=== PATIENT | female | born 1970 | race Caucasian/White ===

== ENCOUNTER 2020-07-09 06:23 | Outpatient (REF) | payer OTHER, SELFPAY ==
[2020-07-10 21:47] LABS: Lyme Abs Screen <0.90 index
== END 2020-07-09 06:24 | disposition home or self-care (01) ==
LOC: HO.HMGCLDS 06:23
PROVIDERS: PCP Internal Medicine; Visit Provider Internal Medicine
DX: M19.90 Unspecified osteoarthritis, unspecified site (principal)
CPT/HCPCS: 86618

== ENCOUNTER → 2020-07-17 10:01 | Outpatient (BNVA) | payer OTHER, SELFPAY | PROVIDERS: PCP Internal Medicine; Referring Provider Internal Medicine; Visit Provider Internal Medicine Gastroenterology | DX: Z76.89 Persons encountering health services in other specified circumstances (principal) ==

== ENCOUNTER 2020-08-14 11:40 | Outpatient (REF) | payer OTHER, SELFPAY | END 2020-08-14 11:41 | disposition home or self-care (01) | LOC: HO.LAB 11:40 | PROVIDERS: Visit Provider Internal Medicine | DX: Z20.822 Contact with and (suspected) exposure to COVID-19 (principal) | CPT/HCPCS: 36415; C9803; U0003 ==

== ENCOUNTER 2020-08-21 15:54 | Outpatient (REF) | payer OTHER, SELFPAY ==
--- NOTE | 2020-08-21 | MM_ITS ---
EXAMINATION: MM SCREENING DIGITAL BREAST TOMOSYNTHESIS, BILATERAL CLINICAL INFORMATION: Screening. Asymptomatic. The lifetime risk of breast cancer based on the Tyrer-Cuzick Model is 7.9%. COMPARISON: Mammography: May 17, 2019 and studies dating back to January 03, 2015 TECHNIQUE: Digital breast tomosynthesis is performed in both the craniocaudal and mediolateral oblique views along with computer-aided detection (CAD). Synthesized 2D images are generated from the tomosynthesis. FINDINGS: There are scattered areas of fibroglandular density (ACR BI-RADS breast composition Category b). There are no significant masses, abnormal calcifications, or other abnormalities. MM/MM tomosynthesis screening BI IMPRESSION: There are no significant changes from prior study. ASSESSMENT: BI-RADS 1: Negative RECOMMENDATION: Routine annual mammography screening. This patient's information was entered into a reminder system with a target due date for their next mammogram.
== END 2020-08-21 15:55 | disposition home or self-care (01) ==
LOC: HO.MAMMO 15:54
PROVIDERS: PCP Internal Medicine; Visit Provider Internal Medicine
DX: Z12.31 Encounter for screening mammogram for malignant neoplasm of breast (principal)
CPT/HCPCS: 77063; 77067

== ENCOUNTER → 2020-08-28 08:49 | Outpatient (BNVA) | payer OTHER, SELFPAY | PROVIDERS: PCP Internal Medicine; Visit Provider Internal Medicine Gastroenterology ==

== ENCOUNTER 2020-09-10 07:11 | Outpatient (REF) | payer OTHER, SELFPAY ==
[2020-09-10 07:40] LABS: MANUAL DIFF FLAG NO
[2020-09-10 07:46] LABS: Basophils Percent Auto 0.5 % (0-2); Eosinophils Absolute Auto 0.1 X10*3/uL (0.0-0.4); Eosinophils Percent Auto 2.4 % (0-4); Hematocrit 43.2 % (37-47); Hemoglobin 13.8 g/dl (12.0-16.0); Imm Gran Abs Auto 0.01 X10*3/uL (0.00-0.03); Imm Gran Pct Auto 0.2 % (0.0-0.4); Lymphocytes Percent Auto 33.2 % (20-40); Mean Corpuscular HGB Conc 31.9 g/dl (31.0-35.0); Mean Corpuscular Hemoglobin 28.2 pg (27.0-33.0); Mean Corpuscular Volume 88.2 fL (80-98); Mean Platelet Volume 11.1 fL (9.4-12.3); Monocytes Absolute Auto 0.4 X10*3/uL (0.1-1.2); Monocytes Percent Auto 7.4 % (2-11); Neutrophils Absolute Auto 3.4 X10*3/uL (2.0-8.3); Neutrophils Percent Auto 56.3 % (45-73); Platelet Count 254 X10*3/uL (160-400); Red Cell Distribution Width 13.1 % (11.0-16.0); White Blood Count 5.9 X10*3/uL (4.8-10.8)
[2020-09-10 07:53] LABS: Glucose Urine UA 100 MG/DL (NEG); Leukocyte Esterase Urine 2+ (NEG); Nitrite Urine NEG (NEG); PH 5.5 (5.0-8.0); Specific Gravity - Urine 1.025 (1.005-1.025); Urine Blood TRACE (NEG); Urine Ketones NEG (NEG); Urine Protein NEG (NEG-TRACE)
[2020-09-10 08:17] LABS: Appearance Urine CLEAR; Color Urine YELLOW
[2020-09-10 08:28] LABS: Bacteria Urine 1+ /LPF; Mucus Urine 2+ /LPF; RBC Urine 0-2 /HPF (0); Squamous Epithelial Cell Urine 3+ /LPF; WBC Clumps Urine NOTED; WBC Urine 30-49 /HPF (0-4)
[2020-09-10 08:38] LABS: Alanine Aminotransferase 21 U/L (0-31); Albumin Level 4.2 g/dL (3.5-5.0); Alkaline Phosphatase 70 U/L (39-117); Anion Gap 12 (12-20); Aspartate Amino Transferase 17 U/L (5-31); Bilirubin Total 0.4 mg/dL (0.0-1.0); Blood Urea Nitrogen 17 mg/dL (9-16); Calcium 9.6 mg/dL (8.4-10.2); Carbon Dioxide 27 mmol/L (22-29); Chloride 112 mmol/L (96-108); Cholesterol 181 mg/dL; Estimated Glomerular Filt Rate > 60; Glucose Fasting 97 mg/dL (60-99); HDL Cholesterol 45 mg/dL; LDL Cholesterol Calculated 119 mg/dl; Sodium 146 mmol/L (135-145); Total Protein 6.9 g/dL (6.5-8.0); Triglycerides 89 mg/dL
== END 2020-09-10 07:12 | disposition home or self-care (01) ==
LOC: HO.LAB 07:11
PROVIDERS: PCP Internal Medicine; Visit Provider Internal Medicine
DX: Z00.00 Encounter for general adult medical examination without abnormal findings (principal); E78.00 Pure hypercholesterolemia, unspecified; R79.89 Other specified abnormal findings of blood chemistry
CPT/HCPCS: 36415; 80053; 80061; 81001; 81003; 85025

== ENCOUNTER 2020-10-20 10:50 | Outpatient (REF) | payer OTHER, SELFPAY ==
[2020-10-20 12:52] LABS: Alanine Aminotransferase 25 U/L (0-31); Albumin Level 4.2 g/dL (3.5-5.0); Alkaline Phosphatase 73 U/L (39-117); Anion Gap 13 (12-20); Aspartate Amino Transferase 22 U/L (5-31); Bilirubin Total 0.6 mg/dL (0.0-1.0); Blood Urea Nitrogen 23 mg/dL (9-16); Calcium 9.1 mg/dL (8.4-10.2); Carbon Dioxide 27 mmol/L (22-29); Chloride 108 mmol/L (96-108); Estimated Glomerular Filt Rate > 60; Glucose Random 85 mg/dL (60-115); Potassium 4.3 mmol/L (3.3-5.1); Sodium 144 mmol/L (135-145); Total Protein 6.8 g/dL (6.5-8.0)
[2020-10-22 14:37] LABS: IgA 305 mg/dL (47-310); IgG 1068 mg/dL (600-1640); IgM 47 mg/dL (50-300)
[2020-11-01 08:36] LABS: Prostaglandin D2 Random Urine 52 ng/liter
== END 2020-10-20 10:51 | disposition home or self-care (01) ==
LOC: HO.LAB 10:50
PROVIDERS: PCP Internal Medicine; Visit Provider Allergy & Immunology
DX: R10.84 Generalized abdominal pain (principal); R14.0 Abdominal distension (gaseous); L50.0 Allergic urticaria; J30.9 Allergic rhinitis, unspecified
CPT/HCPCS: 36415; 80053; 82784; 83520; 84150; 86334

== ENCOUNTER 2020-10-22 06:44 | Outpatient (REF) | payer OTHER, SELFPAY ==
[2020-10-31 17:02] LABS: Creatinine 24Hr Urine 1365 mg/24 h; N-Methylhistamine, 24Hr Urine 104 mcg/g Cr (30-200); Total Volume 975 mL
== END 2020-10-22 06:45 | disposition home or self-care (01) ==
LOC: HO.LNP 06:44
PROVIDERS: Visit Provider Allergy & Immunology
DX: R14.0 Abdominal distension (gaseous) (principal); R10.84 Generalized abdominal pain; L50.0 Allergic urticaria; J30.9 Allergic rhinitis, unspecified
CPT/HCPCS: 81050; 82542

== ENCOUNTER 2020-11-22 10:55 | Outpatient (REF) | payer SELFPAY ==
[2020-11-22 12:18] LABS: Blood Urea Nitrogen 20 mg/dL (9-16); Estimated Glomerular Filt Rate > 60
== END 2020-11-22 10:56 | disposition home or self-care (01) ==
LOC: HO.LNP 10:55
PROVIDERS: Visit Provider Internal Medicine
DX: R79.9 Abnormal finding of blood chemistry, unspecified (principal)
CPT/HCPCS: 82565; 84520

== ENCOUNTER → 2021-01-01 12:52 | Outpatient (BNVA) | payer OTHER, SELFPAY | PROVIDERS: PCP Internal Medicine; Visit Provider Internal Medicine Gastroenterology ==

== ENCOUNTER 2021-04-25 14:26 | Outpatient (REF) | payer OTHER, SELFPAY ==
[2021-04-25 15:14] LABS: Alanine Aminotransferase 22 U/L (0-31); Albumin Level 4.1 g/dL (3.5-5.0); Alkaline Phosphatase 70 U/L (39-117); Aspartate Amino Transferase 18 U/L (5-31); Bilirubin Direct < 0.2 mg/dL (0.0-0.5); Bilirubin Total 0.3 mg/dL (0.0-1.0); Cholesterol 217 mg/dL; HDL Cholesterol 51 mg/dL; LDL Cholesterol Calculated 140 mg/dl; Total Protein 6.8 g/dL (6.5-8.0); Triglycerides 134 mg/dL
[2021-04-25 15:49] LABS: Reflex LDLD? No
== END 2021-04-25 14:27 | disposition home or self-care (01) ==
LOC: HO.LNP 14:26
PROVIDERS: Visit Provider Internal Medicine
DX: E78.00 Pure hypercholesterolemia, unspecified (principal); E78.9 Disorder of lipoprotein metabolism, unspecified
CPT/HCPCS: 80061; 80076

== ENCOUNTER → 2021-07-23 09:33 | Outpatient (BNVA) | payer OTHER, SELFPAY | PROVIDERS: PCP Internal Medicine; Visit Provider Internal Medicine Gastroenterology ==

== ENCOUNTER 2021-07-30 10:31 | Outpatient (REF) | payer OTHER, SELFPAY ==
[2021-07-30 11:32] LABS: Alanine Aminotransferase 24 U/L (0-31); Albumin Level 4.2 g/dL (3.5-5.0); Alkaline Phosphatase 85 U/L (39-117); Aspartate Amino Transferase 20 U/L (5-31); Bilirubin Direct 0.2 mg/dL (0.0-0.5); Bilirubin Total 0.6 mg/dL (0.0-1.0); Cholesterol 223 mg/dL; HDL Cholesterol 51 mg/dL; LDL Cholesterol Calculated 136 mg/dl; Total Protein 7.2 g/dL (6.5-8.0); Triglycerides 184 mg/dL
[2021-07-30 12:19] LABS: Reflex LDLD? No
== END 2021-07-30 10:32 | disposition home or self-care (01) ==
LOC: HO.LNP 10:31
PROVIDERS: Visit Provider Internal Medicine
DX: E78.00 Pure hypercholesterolemia, unspecified (principal)
CPT/HCPCS: 80061; 80076

== ENCOUNTER 2021-09-19 07:15 | Outpatient (REF) | payer OTHER, SELFPAY ==
[2021-09-19 11:19] LABS: MANUAL DIFF FLAG NO
[2021-09-19 11:27] LABS: Basophils Percent Auto 0.6 % (0-2); Eosinophils Absolute Auto 0.1 X10*3/uL (0.0-0.4); Eosinophils Percent Auto 2.3 % (0-4); Hematocrit 44.9 % (37.0-47.0); Hemoglobin 14.4 g/dl (12.0-16.0); Imm Gran Abs Auto 0.04 X10*3/uL (0.00-0.03); Imm Gran Pct Auto 0.6 % (0.0-0.4); Lymphocytes Absolute Auto 2.3 X10*3/uL (1.2-4.9); Lymphocytes Percent Auto 37.7 % (20-40); Mean Corpuscular HGB Conc 32.1 g/dl (31.0-35.0); Mean Corpuscular Hemoglobin 28.3 pg (27.0-33.0); Mean Corpuscular Volume 88.4 fL (80.0-98.0); Mean Platelet Volume 12.3 fL (9.4-12.3); Monocytes Absolute Auto 0.5 X10*3/uL (0.1-1.2); Monocytes Percent Auto 7.3 % (2-11); Neutrophils Absolute Auto 3.2 x10*3/uL (2.0-8.3); Neutrophils Percent Auto 51.5 % (45-73); Platelet Count 244 X10*3/uL (160-400); Red Blood Count 5.08 X10*6/uL (4.20-5.50); Red Cell Distribution Width 13.3 % (11.0-16.0); White Blood Count 6.2 X10*3/uL (4.8-10.8)
[2021-09-19 11:37] LABS: Alanine Aminotransferase 25 U/L (0-31); Albumin Level 4.2 g/dL (3.5-5.0); Alkaline Phosphatase 74 U/L (39-117); Anion Gap 13 (12-20); Aspartate Amino Transferase 21 U/L (5-31); Bilirubin Total 0.4 mg/dL (0.0-1.0); Blood Urea Nitrogen 14 mg/dL (9-16); Calcium 9.8 mg/dL (8.4-10.2); Carbon Dioxide 27 mmol/L (22-29); Chloride 108 mmol/L (96-108); Cholesterol 201 mg/dL; Estimated Glomerular Filt Rate > 60; Glucose Random 94 mg/dL (60-115); HDL Cholesterol 56 mg/dL; LDL Cholesterol Calculated 121 mg/dl; Potassium 4.5 mmol/L (3.3-5.1); Sodium 143 mmol/L (135-145); Total Protein 7.2 g/dL (6.5-8.0); Triglycerides 121 mg/dL
[2021-09-19 11:50] LABS: Appearance Urine CLEAR; Color Urine YELLOW; Glucose Urine UA NEG (NEG); Leukocyte Esterase Urine TRACE (NEG); Nitrite Urine NEG (NEG); Urine Blood NEG (NEG); Urine Ketones NEG (NEG); Urine Protein NEG (NEG-TRACE)
[2021-09-19 12:05] LABS: Amorphous Sediment Urine TRACE /LPF; Bacteria Urine TRACE /LPF; RBC Urine 0 /HPF (0); Squamous Epithelial Cell Urine TRACE /LPF
== END 2021-09-19 07:16 | disposition home or self-care (01) ==
LOC: HO.LNP 07:15
PROVIDERS: Visit Provider Internal Medicine
DX: Z00.00 Encounter for general adult medical examination without abnormal findings (principal); E78.00 Pure hypercholesterolemia, unspecified
CPT/HCPCS: 80053; 80061; 81001; 85025

== ENCOUNTER 2021-09-30 16:22 | Outpatient (REF) | payer OTHER, SELFPAY ==
--- NOTE | ~2021-09-30 | MM_ITS ---
EXAMINATION: MM SCREENING DIGITAL BREAST TOMOSYNTHESIS, BILATERAL CLINICAL INFORMATION: Screening. Asymptomatic. The lifetime risk of breast cancer based on the Tyrer-Cuzick Model is 7%. COMPARISON: Mammography: 08/21/2020, 05/17/2019, 05/12/2018; targeted left breast ultrasound 05/12/2018 TECHNIQUE: Digital breast tomosynthesis is performed in both the craniocaudal and mediolateral oblique views along with computer-aided detection (CAD). Synthesized 2D images are generated from the tomosynthesis. FINDINGS: There are scattered areas of fibroglandular density (ACR BI-RADS breast composition Category b). Scattered bilateral asymmetries are stable. There is stable focal nodular asymmetry central mid 12:00 left breast, consistent with cysts on prior ultrasound and stable focal asymmetry mid upper outer right breast. There is no developing density or interval significant mass or architectural abnormality. No abnormal calcifications. The axilla and skin contours are unremarkable. MM/MM tomosynthesis screening BI IMPRESSION: No significant changes from prior exams. ASSESSMENT: BI-RADS 2: Benign RECOMMENDATION: Routine annual mammography screening. This patient's information was entered into a reminder system with a target due date for their next mammogram.
== END 2021-09-30 16:23 | disposition home or self-care (01) ==
LOC: HO.MAMMO 16:22
PROVIDERS: PCP Internal Medicine; Visit Provider Internal Medicine
DX: Z12.31 Encounter for screening mammogram for malignant neoplasm of breast (principal)
CPT/HCPCS: 77063; 77067

== ENCOUNTER → 2021-12-10 15:31 | Outpatient (BNVA) | payer OTHER, SELFPAY | PROVIDERS: PCP Internal Medicine; Visit Provider Hospitalist | DX: J45.40 Moderate persistent asthma, uncomplicated (principal) ==

== ENCOUNTER 2022-01-10 15:40 | Outpatient (REF) | payer OTHER, SELFPAY ==
--- NOTE | 2022-01-10 17:37 | PFT_ITS ---
INDICATION: Dyspnea. SPIROMETRY: FEV1 to FVC of 88% with an FEV1 of 3.24 L, which is 120% predicted. FVC of 3.7 L, which is 108% predicted. No significant response to bronchodilators noted. Maximum voluntary ventilation 111% predicted. LUNG VOLUMES: Total lung capacity 108% predicted with an expiratory reserve volume of 48% predicted. DIFFUSION CAPACITY: DLCO 95% predicted. COMPARISONS: None. INTERPRETATION: No obstructive nor restrictive ventilatory defects identified. No significant response to bronchodilators noted. Normal maximum voluntary ventilation. Lung volumes are normal except for decrease in the expiratory reserve volume secondary to an elevated BMI. Diffusion capacity is within normal limits. Clinical correlation warranted. Adrian Martínez MD MR/MODL / [id number]
== END 2022-01-10 15:41 | disposition home or self-care (01) ==
LOC: HO.RESP 15:40
PROVIDERS: PCP Internal Medicine; Visit Provider Hospitalist
DX: J45.909 Unspecified asthma, uncomplicated (principal)
CPT/HCPCS: 94060; 94727; 94729

== ENCOUNTER 2022-01-24 14:04 | Outpatient (REF) | payer OTHER, SELFPAY ==
--- NOTE | ~2022-01-24 | CT_ITS ---
EXAMINATION: CT CHEST SCREENING CLINICAL INFORMATION: Former smoker. Quit 3 years ago. COMPARISON: Previous chest CT most recent October 2018 TECHNIQUE: Multidetector volumetric CT imaging of the chest is performed without contrast using low dose technique. Additional 2D coronal and sagittal reformatted images and axial 3D maximum intensity projection (MIP) images are generated on the CT workstation. This CT examination was performed using dose optimization techniques as appropriate, variously including the following: *Automated exposure control *Adjustment of mA and/or kV according to patient size (this includes techniques or standardized protocols for targeted exams where dose is matched to indication/reason for exam; i.e. extremities or head) *Use of iterative reconstruction technique DLP: 60 mGy-cm FINDINGS: LUNGS: There is atelectasis at the lung bases. No pulmonary nodule. No endobronchial or endotracheal lesion. MEDIASTINUM: Prominent soft tissue in the anterior superior mediastinum suggestive of thymic hyperplasia. This is similar to October 2018 CT scan. Small mediastinal lymph nodes. No enlarged lymph nodes. Normal heart size. Coronary artery calcification. PLEURA: There is no pleural effusion. No pleural mass or thickening. Small left posterior medial diaphragmatic hernia containing fat. AXILLA: No lymphadenopathy. UPPER ABDOMEN: Partially visualized cyst in the upper pole of the right kidney. OSSEOUS STRUCTURES: Degenerative changes of the spine. CT/CT lung screening IMPRESSION: No pulmonary nodules. 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 ASSESSMENT: Lung-RADS category 1: Negative RECOMMENDATION: Annual low-dose chest CT follow-up recommended.
== END 2022-01-24 14:05 | disposition home or self-care (01) ==
LOC: HO.CT 14:04
PROVIDERS: Visit Provider Physician Assistant Medical
DX: Z12.2 Encounter for screening for malignant neoplasm of respiratory organs (principal); Z87.891 Personal history of nicotine dependence
CPT/HCPCS: 71271; G0296

== ENCOUNTER 2022-03-27 10:48 | Outpatient (REF) | payer OTHER, SELFPAY ==
[2022-03-27 11:10] LABS: Alanine Aminotransferase 23 U/L (0-31); Albumin Level 4.2 g/dL (3.5-5.0); Alkaline Phosphatase 64 U/L (39-117); Aspartate Amino Transferase 23 U/L (5-31); Bilirubin Direct 0.2 mg/dL (0.0-0.5); Bilirubin Total 0.5 mg/dL (0.0-1.0); Cholesterol 193 mg/dL; HDL Cholesterol 61 mg/dL; LDL Cholesterol Calculated 111 mg/dl; Triglycerides 105 mg/dL
== END 2022-03-27 10:49 | disposition home or self-care (01) ==
LOC: HO.LNP 10:48
PROVIDERS: Visit Provider Internal Medicine
DX: E78.00 Pure hypercholesterolemia, unspecified (principal)
CPT/HCPCS: 80061; 80076

== ENCOUNTER → 2022-08-08 14:21 | Outpatient (BNVA) | payer OTHER, SELFPAY | PROVIDERS: PCP Internal Medicine; Visit Provider Hospitalist | DX: F17.200 Nicotine dependence, unspecified, uncomplicated (principal); J45.40 Moderate persistent asthma, uncomplicated; J44.9 Chronic obstructive pulmonary disease, unspecified; J45.909 Unspecified asthma, uncomplicated ==

== ENCOUNTER 2022-09-25 10:55 | Outpatient (REF) | payer OTHER, SELFPAY ==
[2022-09-25 11:00] LABS: MANUAL DIFF FLAG NO
[2022-09-25 12:36] LABS: Appearance Urine Clear; Basophils Percent Auto 0.6 % (0-2); Color Urine Yellow; Eosinophils Absolute Auto 0.2 X10*3/uL (0.0-0.4); Eosinophils Percent Auto 2.3 % (0-4); Glucose Urine UA Negative (Negative); Hematocrit 44.1 % (37.0-47.0); Hemoglobin 14.1 g/dl (12.0-16.0); Imm Gran Abs Auto 0.01 X10*3/uL (0.00-0.03); Imm Gran Pct Auto 0.2 % (0.0-0.4); Leukocyte Esterase Urine Trace (Negative); Lymphocytes Absolute Auto 2.5 X10*3/uL (1.2-4.9); Lymphocytes Percent Auto 37.3 % (20-40); Mean Corpuscular Hemoglobin 27.8 pg (27.0-33.0); Mean Corpuscular Volume 86.8 fL (80.0-98.0); Mean Platelet Volume 12.6 fL (9.4-12.3); Monocytes Absolute Auto 0.6 X10*3/uL (0.1-1.2); Monocytes Percent Auto 8.3 % (2-11); Neutrophils Absolute Auto 3.4 x10*3/uL (2.0-8.3); Neutrophils Percent Auto 51.3 % (45-73); Nitrite Urine Negative (Negative); Platelet Count 250 X10*3/uL (160-400); Red Blood Count 5.08 X10*6/uL (4.20-5.50); Red Cell Distribution Width 13.6 % (11.0-16.0); Specific Gravity - Urine 1.015 (1.005-1.025); UMIC TRIGGER UACC YES; Urine Blood Negative (Negative); Urine Ketones Negative (Negative); Urine Protein Negative (Neg-Trace); White Blood Count 6.6 X10*3/uL (4.8-10.8)
[2022-09-25 12:45] LABS: Bacteria Urine None Seen (None Seen); Hyaline Casts Urine 0-2 /LPF (0-2); RBC Urine 0-2 /HPF (0-2); Squamous Epithelial Cell Urine 0-2 /HPF (0-2); WBC Urine 0-5 /HPF (0-5)
[2022-09-25 12:56] LABS: Alanine Aminotransferase 23 U/L (0-31); Albumin Level 4.2 g/dL (3.5-5.0); Alkaline Phosphatase 72 U/L (39-117); Anion Gap 14 (12-20); Aspartate Amino Transferase 19 U/L (5-31); Bilirubin Direct 0.2 mg/dL (0.0-0.5); Bilirubin Total 0.5 mg/dL (0.0-1.0); Blood Urea Nitrogen 15 mg/dL (9-16); Calcium 9.4 mg/dL (8.4-10.2); Carbon Dioxide 25 mmol/L (22-29); Chloride 111 mmol/L (96-108); Cholesterol 186 mg/dL; Estimated Glomerular Filt Rate > 60; Glucose Fasting 105 mg/dL (60-99); HDL Cholesterol 58 mg/dL; LDL Cholesterol Calculated 115 mg/dl; Potassium 4.4 mmol/L (3.3-5.1); Sodium 146 mmol/L (135-145); Total Protein 6.9 g/dL (6.5-8.0); Triglycerides 68 mg/dL
[2022-09-25 13:55] LABS: Reflex LDLD? No
== END 2022-09-25 10:56 | disposition home or self-care (01) ==
LOC: HO.LNP 10:55
PROVIDERS: Visit Provider Internal Medicine
DX: Z00.00 Encounter for general adult medical examination without abnormal findings (principal); E78.00 Pure hypercholesterolemia, unspecified; K58.0 Irritable bowel syndrome with diarrhea
CPT/HCPCS: 80053; 80061; 80076; 81001; 82248; 85025

== ENCOUNTER 2022-10-03 15:29 | Outpatient (REF) | payer OTHER, SELFPAY ==
--- NOTE | ~2022-10-03 | MM_ITS ---
EXAMINATION: MM SCREENING DIGITAL BREAST TOMOSYNTHESIS, BILATERAL CLINICAL INFORMATION: Screening. Asymptomatic. The lifetime risk of breast cancer based on the Tyrer-Cuzick Model is 5%. COMPARISON: Mammography: 09/30/2021, 08/21/2020, 05/17/2019 TECHNIQUE: Digital breast tomosynthesis is performed in both the craniocaudal and mediolateral oblique views along with computer-aided detection (CAD). Synthesized 2D images are generated from the tomosynthesis. FINDINGS: There are scattered areas of fibroglandular density (ACR BI-RADS breast composition Category b). There are no significant masses, abnormal calcifications, or other abnormalities. No architectural abnormality or developing density or significant change from prior studies. Again, there is a stable macrolobulated nodule mid 12:00 left breast and stable round retroareolar nodule left breast. The axilla are unremarkable. MM/MM tomosynthesis screening BI IMPRESSION: No mammographic evidence of malignancy. ASSESSMENT: BI-RADS 2: Benign RECOMMENDATION: Routine annual mammography screening. This patient's information was entered into a reminder system with a target due date for their next mammogram.
== END 2022-10-03 15:30 | disposition home or self-care (01) ==
LOC: HO.MAMMO 15:29
PROVIDERS: PCP Internal Medicine; Visit Provider Internal Medicine
DX: Z12.31 Encounter for screening mammogram for malignant neoplasm of breast (principal)
CPT/HCPCS: 77063; 77067

== ENCOUNTER 2023-03-23 11:21 | Outpatient (REF) | payer OTHER, SELFPAY ==
[2023-03-23 11:39] LABS: Alanine Aminotransferase 21 U/L (0-31); Albumin Level 4.3 g/dL (3.5-5.0); Alkaline Phosphatase 74 U/L (39-117); Aspartate Amino Transferase 22 U/L (5-31); Bilirubin Direct 0.2 mg/dL (0.0-0.5); Bilirubin Total 0.4 mg/dL (0.0-1.0); Cholesterol 194 mg/dL (<200); HDL Cholesterol 54 mg/dL (>40); LDL Cholesterol Calculated 111 mg/dL (<100); Total Protein 7.6 g/dL (6.5-8.0); Triglycerides 145 mg/dL (<150)
== END 2023-03-23 11:22 | disposition home or self-care (01) ==
LOC: HO.LNP 11:21
PROVIDERS: Visit Provider Internal Medicine
DX: E78.00 Pure hypercholesterolemia, unspecified (principal)
CPT/HCPCS: 80061; 80076

== ENCOUNTER 2023-03-27 14:57 | Outpatient (REF) | payer OTHER, SELFPAY ==
--- NOTE | ~2023-03-27 | CT_ITS ---
EXAMINATION: CT CHEST SCREENING CLINICAL INFORMATION: 30 pack year smoking history; former smoker. COMPARISON: Prior chest CT examinations, most recently 01/24/2022. TECHNIQUE: Multidetector volumetric CT imaging of the chest is performed without contrast using low dose technique. Additional 2D coronal and sagittal reformatted images and axial 3D maximum intensity projection (MIP) images are generated on the CT workstation. This CT examination was performed using dose optimization techniques as appropriate, variously including the following: *Automated exposure control *Adjustment of mA and/or kV according to patient size (this includes techniques or standardized protocols for targeted exams where dose is matched to indication/reason for exam; i.e. extremities or head) *Use of iterative reconstruction technique DLP: 113 mGy-cm FINDINGS: LUNGS: Within the right upper lobe laterally (4:95 and 8:29), a tiny benign, calcified granuloma is redemonstrated. This is unchanged from 10/26/2018 (6:73). No new nodule, mass, infiltrate or groundglass opacity is seen. There are bibasilar foci of minor scar/subsegmental atelectasis, without associated focal airway obstruction. There is mild focal atelectasis at the medial right base, adjacent to prominent vertebral osteophytes. No small airway thickening is seen. The central airways appear patent. MEDIASTINUM: The thyroid is normal. There is mild residual thymus. No mediastinal lymphadenopathy is seen. There is no thoracic aortic aneurysm. CORONARY ARTERY CALCIFICATION: None visualized on this study. PLEURA: There is no pleural effusion. No pleural mass or thickening. AXILLA: No lymphadenopathy. UPPER ABDOMEN: Unremarkable OSSEOUS STRUCTURES: There is multi-level thoracic degenerative disc disease and spondylosis. No acute or aggressive osseous abnormality is seen. CT/CT lung screening IMPRESSION: No noncalcified lung nodule is seen. ASSESSMENT: Lung-RADS category 1: Negative RECOMMENDATION: Routine annual low-dose CT screening in 12 months.
== END 2023-03-27 14:58 | disposition home or self-care (01) ==
LOC: HO.CT 14:57
PROVIDERS: PCP Internal Medicine; Visit Provider Physician Assistant Medical
DX: Z12.2 Encounter for screening for malignant neoplasm of respiratory organs (principal); Z87.891 Personal history of nicotine dependence
CPT/HCPCS: 71271

== ENCOUNTER 2023-08-21 15:28 | Outpatient (AMB) | payer OTHER, SELFPAY ==
[2023-08-21 15:39] VITALS: PULSE 89; O2SAT 97; BMI 35.4
--- NOTE | 2023-08-21 15:39 | A.OFFVIS_ITS ---
Intake Vital Signs 08/21/23 15:39 Height 5 ft 3 in Weight 200 lb BMI 35.4 Pulse 89 Pulse Source Pulse Oximeter Pulse Oximetry (%) 97 Oxygen Delivery Method Room Air Intake Visit Reasons: emphysema Material Planning Analyst Required: No Allergies amoxicillin [AMOXICILLIN] Allergy (Severe, Verified 08/21/23 15:40) ANAPHYLAXIS Latex, Natural Rubber [LATEX, NATURAL RUBBER] Allergy (Unknown, Verified 08/21/23 15:40) rash Penicillins [PENICILLINS] Allergy (Unknown, Verified 08/21/23 15:40) TOLD TO AVOID SEASONAL ALLERGIES Allergy (Intermediate, Uncoded 08/21/23 15:40) ITCHY EYES HPI HPI Comments History of Present Illness Details The patient is a 53-year-old woman with a history of tobacco d ependency. Apparently she did have allergy symptoms when she was growing up. Significant allergy history an asthma history in the family. She never required prednisone or hospitalizations for her allergy symptoms. She did not use any inhalers. Subsequently after that she started smoking. She noticed that other people in her family were her being diagnosed with COPD. She mention that the diagnosis of COPD came later in her life. There were also smokers. The patient has been smoking until about 3 years ago when she had a case of anaphylaxis after her taking amoxicillin. During that visit she was brought to [facility] ED. She responded to epinephrine. The patient also underwent a CT scan of the chest that was personally reviewed by me. It appears that she did have some areas suggestive of emphysema primarily in the mid lung zone area. No significant pulmonary nodules noted. It was also noted the patient has a congenital under developed right kidney. The patient smoked for more 30 years about a pack a day. She is currently 51 years old and I did recommend she start the lung cancer screening program at this time. She is using Advair and then switched over to Wixela. She has been using that for many years. She still having some issues with dyspnea on exertion and feels that she has some chest tightness. She is wondering if she can try any other medication. At this point we can optimize her therapy to start Trelegy and also undergo pulmonary function studies to assess her lung capacity. as far as her allergies he has significant allergies. She was tested by Allergy immunology many years ago and they demonstrated significant allergies although she does not have the current documentation did did recommend she start allergy shots but at that time her insurance was very limited and she did not have the time to invest. 01/27/2022 the patient is here for a pulmonary follow-up visit. Overall the patient has been due well. She has been using the Trelegy. Sometimes she feels she did better on the Advair. I did encourage her to continue the medicine at this time. We did review her pulmonary function studies which were reassuring. Her lung mechanics appears to be within normal limits. In addition to that she did participated in the lung cancer screening program and she did undergo a CT scan of the chest. Has not been formally read yet but I did review with her and appears that she does have multiple pulmonary nodules are subcentimeter in size. She will need to have a repeat CT scan in a year's time. If the final report i s different will go ahead and let her know. At this point I do believe the patient will do better on singular just to help her with her allergic component of her obstructive airway disease. Again is reassuring that she does not have any evidence of COPD. 08/08/2022 patient is here for a pulmonary follow-up visit. Overall the patient is doing better. She does continue on the Trelegy 200 mcg. Will be reasonable to decrease it down to 100. at this point she just received a new prescription. therefore, she will call when she is running out in order to sent the lower dose. She has not had to use her rescue inhaler. She also did not have to start the singular. Usually her allergies are worse during the spring time. Therefore she will consider rate starting at 10. we did review her lung cancer screening CT scan. The CT scan is reassuring. 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 She is scheduled to have a repeat CT scan next summer. Will follow-up in a year's time. 08/21/2023 the patient is here for a pulmonary follow-up visit. She does complaint of worsening congested cough. Productive in nature. Difficult to expectorate. The patient has tried her respiratory medications her rescue inhaler with only partial improvement of the symptoms. Also feels she has a component of sinusitis. Denies any fevers or chills. She has tested negative fo r COVID. We also looked at her last CT scan which was back in March 2023 demonstrating a rads 1 which is very good. The patient is scheduled to have a repeat CT scan in the summer of 2023. will go ahead and continue her respiratory therapy. She is having increasing allergy symptoms. Will try Astelin nasal spray. Also, she does have a history of nasal polyposis. Will go ahead and check her allergy levels to see if she has a candidate for biologic therapy. [facility] Medical History (Updated 08/23/23 @ 19:48 by Adrian Martínez MD) Nasal polyposis Thymus hyperplasia IBS (irritable bowel syndrome) Personal history of nicotine dependence Allergies Asthma Hypercholesterolemia Surgical History (Updated 01/16/22 @ 13:00 by Skye Bañuelos PA-C) History of hysterectomy (~2005) History of endoscopy History of colonoscopy Family History Father History of colon cancer Mother No problems noted. 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/[employer] Review of Systems Const Denies body aches and Denies fever(s) Eyes Denies change in vision ENT Denies change in voice, Reports nasal congestion, Reports nasal discharge, Reports nasal obstruction, Reports post nasal drip and Reports sinus pressure Card Denies chest pain and Denies dyspnea on exertion Resp Reports chest congestion, Reports cough, Denies dyspnea on exertion and Reports wheezing GI Reports no additional complaints Musc Reports no additional complaints Neuro Reports no additional complaints Aller/Immun Reports wheezing Physical Exam Vital Signs: Last Vital Signs Pulse 89 08/21/23 15:39 Pulse Ox 97 08/21/23 15:39 Oxygen Delivery Method Room Air 08/21/23 15:39 BMI result Body Mass Index 35.4 Const General: alert HEENT General nose exam: Abnormal mucous membranes and turbinates present boggy and Nasal polyp present on the left Neck Neck: Yes normal visual inspection, Yes full ROM and Yes no lymphadenopathy Chest Chest palpation & inspection: normal inspection of the chest Resp Auscultation: no rales, no rhonchi, no wheezes and diminished lung sounds Cardio Rate: regular rate Rhythm: regular rhythm Heart sounds: S1 normal heart sound present and S2 normal heart sound present GI Palpation (GI): Soft to palpation and nontender Auscultation: normal bowel sounds Skin General skin exam: rashes and/or lesions noted Assessment & Plan Assessment & Plan (1) Asthma: Code(s): J45.909 - Unspecified asthma, uncomplicated Qualifiers: Asthma complication type: uncomplicated Asthma persistence: persistent Asthma severity: moderate Qualified Code(s): J45.40 - Moderate persistent asthma, uncomplicated (2) Allergies: Code(s): T78.40XA - Allergy, unspecified, initial encounter Qualifiers: Encounter type: subsequent encounter Qualified Code(s): T78.40XD - Allergy, unspecified, subsequent encounter (3) 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 Singulair qHS during the spring if her allergies worsen follow-up in 12 months Orders: Orders Complete Blood Count Auto Diff 08/21/23 J45.909 - Unspecified asthma, uncomplicated, T78.40XA - Allergy, unspecified, initial encounter Immunoglobulin E 08/21/23 J45.909 - Unspecified asthma, uncomplicated, T78.40XA - Allergy, unspecified, initial encounter Erythrocyte Sedimentation Rate 08/21/23 J45.909 - Unspecified asthma, uncomplicated, T78.40XA - Allergy, unspecified, initial encounter Medications: New azelastine administer into each nostril 2 sprays intranasal BID 30 days 30 mL 6RF doxycycline monohydrate 100 mg PO BID 14 days 28 tabs 0RF prednisone PO daily; Take 2 tabs daily x 7 days, then 1 tab daily x 7 days 14 days 21 tabs 0RF Coding Level of Care Code Est Pt Level 4 (79768) Diagnoses Moderate persistent asthma without complication J45.40 Asthma complication type: uncomplicated Asthma persistence: persistent Asthma severity: moderate Allergy, subsequent encounter T78.40XD Encounter type: subsequent encounter Thymus hyperplasia E32.0 Nasal polyposis J33.9 Subacute sinusitis, unspecified location J01.90 Sinusitis location: unspecified location Chronicity: subacute Time Spent (min) 17
== END 2023-08-21 15:57 | disposition home or self-care (01) ==
PROVIDERS: PCP Internal Medicine; Visit Provider Hospitalist
DX: J45.40 Moderate persistent asthma, uncomplicated (principal); T78.40XD Allergy, unspecified, subsequent encounter; E32.0 Persistent hyperplasia of thymus; J33.9 Nasal polyp, unspecified; J01.90 Acute sinusitis, unspecified
CPT/HCPCS: 99214

== ENCOUNTER → 2023-08-21 15:28 | Outpatient (BNVA) | payer OTHER, SELFPAY | PROVIDERS: PCP Internal Medicine; Visit Provider Hospitalist ==

== ENCOUNTER 2023-09-24 06:44 | Outpatient (REF) | payer OTHER, SELFPAY ==
[2023-09-24 06:55] LABS: MANUAL DIFF FLAG NO
[2023-09-24 07:52] LABS: Basophils Percent Auto 0.5 % (0-2); Eosinophils Absolute Auto 0.3 X10*3/uL (0.0-0.4); Eosinophils Percent Auto 4.1 % (0-4); Hematocrit 47.5 % (37.0-47.0); Hemoglobin 15.3 g/dl (12.0-16.0); Imm Gran Abs Auto 0.03 X10*3/uL (0.00-0.03); Imm Gran Pct Auto 0.4 % (0.0-0.4); Lymphocytes Absolute Auto 2.5 X10*3/uL (1.2-4.9); Lymphocytes Percent Auto 34.2 % (20-40); Mean Corpuscular HGB Conc 32.2 g/dl (31.0-35.0); Mean Corpuscular Hemoglobin 27.4 pg (27.0-33.0); Mean Corpuscular Volume 85.1 fL (80.0-98.0); Mean Platelet Volume 11.9 fL (9.4-12.3); Monocytes Absolute Auto 0.5 X10*3/uL (0.1-1.2); Monocytes Percent Auto 7.4 % (2-11); Neutrophils Absolute Auto 3.9 x10*3/uL (2.0-8.3); Neutrophils Percent Auto 53.4 % (45-73); Platelet Count 292 X10*3/uL (160-400); Red Blood Count 5.58 X10*6/uL (4.20-5.50); Red Cell Distribution Width 14.5 % (11.0-16.0); White Blood Count 7.3 X10*3/uL (4.8-10.8)
[2023-09-24 07:55] LABS: Appearance Urine Clear; Color Urine Yellow; Glucose Urine UA Negative (Negative); Leukocyte Esterase Urine Moderate (2+) (Negative); Nitrite Urine Negative (Negative); PH 5.5 (5.0-9.0); Specific Gravity - Urine 1.015 (1.005-1.025); UMIC TRIGGER UACC YES; Urine Blood Negative (Negative); Urine Ketones Negative (Negative); Urine Protein Negative (Neg-Trace)
[2023-09-24 08:00] LABS: Bacteria Urine None Seen (None Seen); Hyaline Casts Urine 0-2 /LPF (0-2); RBC Urine 0-2 /HPF (0-2); UACC Culture Trigger YES
[2023-09-24 08:23] LABS: Alanine Aminotransferase 20 U/L (0-31); Albumin Level 4.4 g/dL (3.5-5.0); Alkaline Phosphatase 73 U/L (39-117); Anion Gap 14 (12-20); Aspartate Amino Transferase 19 U/L (5-31); Bilirubin Total 0.5 mg/dL (0.0-1.0); Blood Urea Nitrogen 15 mg/dL (9-16); Calcium 10.1 mg/dL (8.4-10.2); Carbon Dioxide 26 mmol/L (22-29); Chloride 109 mmol/L (96-108); Cholesterol 209 mg/dL (<200); Estimated Glomerular Filt Rate 58; Glucose Fasting 123 mg/dL (60-99); HDL Cholesterol 52 mg/dL (>40); LDL Cholesterol Calculated 124 mg/dL (<100); Potassium 4.2 mmol/L (3.3-5.1); Sodium 145 mmol/L (135-145); Total Protein 7.8 g/dL (6.5-8.0); Triglycerides 168 mg/dL (<150)
== END 2023-09-24 06:45 | disposition home or self-care (01) ==
LOC: HO.LAB 06:44
PROVIDERS: PCP Internal Medicine; Visit Provider Internal Medicine
DX: Z00.00 Encounter for general adult medical examination without abnormal findings (principal); E78.00 Pure hypercholesterolemia, unspecified; R82.90 Unspecified abnormal findings in urine
CPT/HCPCS: 36415; 80053; 80061; 81001; 85025; 87086

== ENCOUNTER 2023-10-06 15:31 | Outpatient (REF) | payer OTHER, SELFPAY ==
--- NOTE | ~2023-10-06 | MM_ITS ---
EXAMINATION: MM SCREENING DIGITAL BREAST TOMOSYNTHESIS, BILATERAL CLINICAL INFORMATION: Screening. Asymptomatic. COMPARISON: Mammography: 10/03/2022, 09/30/2021, 08/21/2020, 05/17/2019. Left breast ultrasound 05/12/2018. TECHNIQUE: Digital breast tomosynthesis is performed in both the craniocaudal and mediolateral oblique views along with computer-aided detection (CAD). Synthesized 2D images are generated from the tomosynthesis. A second CC was provided for better anterior compression. FINDINGS: There are scattered areas of fibroglandular density (ACR BI-RADS breast composition Category b). There are no suspicious masses, suspicious grouped calcifications, or areas of architectural distortion in either breast. The parenchymal pattern is stable from prior exams. Stable circumscribed nodule in the 12:00 axis left breast known to represent an 8 mm simple cyst. No additional abnormalities. No skin or axillary findings. MM/MM tomosynthesis screening BI IMPRESSION: No mammographic evidence of malignancy. Stable benign findings left breast. ASSESSMENT: BI-RADS BI-RADS 2 - Benign Findings RECOMMENDATION: Routine annual mammography screening. 1 year F/U This examination should not preclude the clinical evaluation of a suspicious palpable abnormality. This patient's information was entered into a reminder system with a target due date for their next mammogram.
== END 2023-10-06 15:32 | disposition home or self-care (01) ==
LOC: HO.MAMMO 15:31
PROVIDERS: PCP Internal Medicine; Visit Provider Internal Medicine
DX: Z12.31 Encounter for screening mammogram for malignant neoplasm of breast (principal)
CPT/HCPCS: 77063; 77067

== ENCOUNTER → 2023-10-06 15:45 | Outpatient (BNV) | payer OTHER, SELFPAY | PROVIDERS: PCP Internal Medicine; Visit Provider Radiology Diagnostic Radiology | DX: Z12.31 Encounter for screening mammogram for malignant neoplasm of breast (principal) | CPT/HCPCS: 77063; 77067 ==

== ENCOUNTER 2023-12-15 15:22 | Outpatient (AMB) | payer OTHER, SELFPAY ==
--- NOTE | 2023-12-15 15:30 | A.OFFVIS_ITS ---
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 Apparently she did have allergy symptoms when she was growing up. Significant allergy history an asthma history in the family. She never required prednisone or hospitalizations for her allergy symptoms. She did not use any inhalers. Subsequently after that she started smoking. She noticed that other people in her family were her being diagnosed with COPD. She mention that the diagnosis of COPD came later in her life. There were also smokers. The patient has been smoking until about 3 years ago when she had a case of anaphylaxis after her taking amoxicillin. During that visit she was brought to the [facility] ED. She responded to epinephrine. The patient also underwent a CT scan of the chest that was personally reviewed by me. It appears that she did have some areas suggestive of emphysema primarily in the mid lung zone area. No significant pulmonary nodules noted. It was also noted the patient has a congenital under developed right kidney. The patient smoked for more 30 years about a pack a day. She is currently 51 years old and I did recommend she start the lung cancer screening program at this time. She is using Advair and then switched over to Wixela. She has been using that for many years. She still having some issues with dyspnea on exertion and feels that she has some chest tightness. She is wondering if she can try any other medication. At this point we can optimize her therapy to start Trelegy and also undergo pulmonary function studies to assess her lung capacity. as far as her allergies he has significant allergies. She was tested by Allergy immunology many years ago and they demonstrated significant allergies although she does not have the current documentation did did recommend she start allergy shots but at that time her insurance was very limited and she did not have the time to invest. 01/27/2022 the patient is here for a pulmonary follow-up visit. Overall the patient has been due well. She has been using the Trelegy. Sometimes she feels she did better on the Advair. I did encourage her to continue the medicine at this time. We did review her pulmonary function studies which were reassuring. Her lung mechanics appears to be within normal limits. In addition to that she did participated in the lung cancer screening program and she did undergo a CT scan of the chest. Has not been formally read yet but I did review with her and appears that she does have multiple pulmonary nodules are subcentimeter in size. She will need to have a repeat CT scan in a year's time. If the final report is different will go ahead and let her know. At this point I do believe the patient will do better on singular just to help her with her allergic component of her obstructive airway disease. Again is reassuring that she does not have any evidence of COPD. 08/08/2022 patient is here for a pulmonary follow-up visit. Overall the patient is doing better. She does continue on the Trelegy 200 mcg. Will be reasonable to decrease it down to 100. at this point she just received a new prescription. therefore, she will call when she is running out in order to sent the lower dose. She has not had to use her rescue inhaler. She also did not have to start the singular. Usually her allergies are worse during the spring time. Therefore she will consider rate starting at 10. we did review her lung cancer screening CT scan. The CT scan is reassuring. 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 She is scheduled to have a repeat CT scan next summer. Will follow-up in a year's time. 08/21/2023 the patient is here for a pulmonary follow-up visit. She does complaint of worsening congested cough. Productive in nature. Difficult to expectorate. The patient has tried her respiratory medications her rescue inhaler with only partial improvement of the symptoms. Also feels she has a component of sinusitis. Denies any fevers or chills. She has tested negative for COVID. We also looked at her last CT scan which was back in March 2023 demonstrating a rads 1 which is very good. The patient is scheduled to have a repeat CT scan in the summer of 2023. will go ahead and continue her respiratory therapy. She is having increasing allergy symptoms. Will try Astelin nasal spray. Also, she does have a history of nasal polyposis. Will go ahead and check her allergy levels to see if she has a candidate for biologic therapy. 12/15/2023 the patient is here for a pulmonary follow-up visit. The patient continues to struggle with her breathing and also nasal congestion. Patient has a history of nasal polyps in addition to significant asthma. She has been using the inhalers in the allergy therapy with her good adherence. Still she is having Daily symptoms requiring rescue inhaler. Feels like nasal polyps getting worse as well. Causing significant blockage of the nasal sinuses. The patient will undergo blood work today. She is already maximized on respiratory therapy. I do believe she will be a good candidate for biologics primarily Dupixent review of the asthma eczema in the nasal polyps will go ahead and request blood work in addition to start process to start the biologic. FOR[facility]LY [facility], [facility] Medical History (Updated 08/23/23 @ 19:48 by Adrian Martínez MD) Nasal polyposis Thymus hyperplasia IBS (irritable bowel syndrome) Personal history of nicotine dependence Allergies Asthma Hypercholesterolemia Surgical History (Updated 01/16/22 @ 13:00 by Skye Bañuelos PA-C) History of hysterectomy (~2005) History of endoscopy History of colonoscopy Family History Father History of colon cancer Mother No problems noted. 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[employer] Review of Systems Const Denies body aches and Denies fever(s) Eyes Denies change in vision ENT Denies change in voice, Reports nasal congestion, Reports nasal discharge, Reports nasal obstruction, Reports post nasal drip and Reports sinus pressure Card Denies chest pain and Denies dyspnea on exertion Resp Reports chest congestion, Reports cough, Denies dyspnea on exertion and Reports wheezing GI Reports no additional complaints Musc Reports no additional complaints Neuro Reports no additional complaints Aller/Immun Reports wheezing Physical Exam Vital Signs: Last Vital Signs Pulse 89 12/15/23 15:31 Pulse Ox 95 12/15/23 15:31 Oxygen Delivery Method Room Air 12/15/23 15:31 BMI result Body Mass Index 35.4 Const General: alert HEENT General nose exam: Abnormal mucous membranes and turbinates present boggy and Nasal polyp present on the left Neck Neck: Yes normal visual inspection, Yes full ROM and Yes no lymphadenopathy Chest Chest palpation & inspection: normal inspection of the chest Resp Effort & Inspection: normal respiratory effort and prolonged expiratory phase Auscultation: no rales, no rhonchi, no wheezes and diminished lung sounds Cardio Rate: regular rate Rhythm: regular rhythm Heart sounds: S1 normal heart sound present and S2 normal heart sound present GI Palpation (GI): Soft to palpation and nontender Auscultation: normal bowel sounds Skin General skin exam: rashes and/or lesions noted Assessment & Plan Assessment & Plan (1) Asthma: Code(s): J45.909 - Unspecified asthma, uncomplicated Category: Medical Qualifiers: Asthma complication type: uncomplicated Asthma persistence: persistent Asthma severity: moderate Qualified Code(s): J45.40 - Moderate persistent asthma, uncomplicated (2) Allergies: Code(s): T78.40XA - Allergy, unspecified, initial encounter Category: Medical Qualifiers: Encounter type: subsequent encounter Qualified Code(s): T78.40XD - Allergy, unspecified, subsequent encounter (3) 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 Singulair qHS during the spring if her allergies worsen She will benefit from Dupixent, We will request labs follow-up in 3-4 months Orders: Orders Immunoglobulin E Today J33.9 - Nasal polyp, unspecified, J45.40 - Moderate persistent asthma, uncomplicated, T78.40XD - Allergy, unspecified, subsequent encounter Resp Allergy Profile Region I Today J33.9 - Nasal polyp, unspecified, J45.40 - Moderate persistent asthma, uncomplicated, R91.1 - Solitary pulmonary nodule, T78.40XD - Allergy, unspecified, subsequent encounter Complete Blood Count Auto Diff Today J33.9 - Nasal polyp, unspecified, J45.40 - Moderate persistent asthma, uncomplicated, T78.40XD - Allergy, unspecified, subsequent encounter Erythrocyte Sedimentation Rate Today J33.9 - Nasal polyp, unspecified, J45.40 - Moderate persistent asthma, uncomplicated, T78.40XD - Allergy, unspecified, subsequent encounter Coding Level of Care Code Est Pt Level 4 (56239) Diagnoses Moderate persistent asthma without complication J45.40 Asthma complication type: uncomplicated Asthma persistence: persistent Asthma severity: moderate Allergy, subsequent encounter T78.40XD Encounter type: subsequent encounter Thymus hyperplasia E32.0 Nasal polyposis J33.9 Subacute sinusitis, unspecified location J01.90 Chronicity: subacute Sinusitis location: unspecified location Time Spent (min) 17
[2023-12-15 15:31] VITALS: PULSE 89; O2SAT 95; BMI 35.4
== END 2023-12-15 15:46 | disposition home or self-care (01) ==
PROVIDERS: PCP Internal Medicine; Visit Provider Hospitalist
DX: J45.40 Moderate persistent asthma, uncomplicated (principal); T78.40XD Allergy, unspecified, subsequent encounter; E32.0 Persistent hyperplasia of thymus; J33.9 Nasal polyp, unspecified; J01.90 Acute sinusitis, unspecified
CPT/HCPCS: 99214

== ENCOUNTER 2023-12-15 15:22 | Outpatient (REF) | payer OTHER, SELFPAY ==
[2023-12-15 16:09] LABS: MANUAL DIFF FLAG NO
[2023-12-15 17:23] LABS: Basophils Absolute Auto 0.1 X10*3/uL (0.0-0.2); Basophils Percent Auto 0.8 % (0-2); Eosinophils Absolute Auto 0.3 X10*3/uL (0.0-0.4); Eosinophils Percent Auto 4.1 % (0-4); Hematocrit 41.8 % (37.0-47.0); Hemoglobin 13.9 g/dl (12.0-16.0); Imm Gran Abs Auto 0.02 X10*3/uL (0.00-0.03); Imm Gran Pct Auto 0.3 % (0.0-0.4); Lymphocytes Percent Auto 25.9 % (20-40); Mean Corpuscular HGB Conc 33.3 g/dl (31.0-35.0); Mean Corpuscular Hemoglobin 28.1 pg (27.0-33.0); Mean Corpuscular Volume 84.6 fL (80.0-98.0); Monocytes Absolute Auto 0.6 X10*3/uL (0.1-1.2); Neutrophils Absolute Auto 4.7 x10*3/uL (2.0-8.3); Neutrophils Percent Auto 60.9 % (45-73); Platelet Count 243 X10*3/uL (160-400); Red Blood Count 4.94 X10*6/uL (4.20-5.50); Red Cell Distribution Width 13.9 % (11.0-16.0); White Blood Count 7.7 X10*3/uL (4.8-10.8)
[2023-12-15 18:51] LABS: Erythrocyte Sedimentation Rate 6 MM/HR (0-20)
[2023-12-16 23:24] LABS: Class Alternaria alternata 0; Class Aspergillus fumigatus 0; Class Bermuda Grass 1; Class Birch 2; Class Cat Dander 4; Class Cladosporium herbarum 0; Class Cockroach 0; Class Common Ragweed 3; Class Cottonwood 0; Class Derm. pterony 2; Class Dermatophagoides farinae 2; Class Dog Dander 3; Class Elm 0; Class Maple Box Elder 0; Class Mountain Cedar 0; Class Mouse Urine Protein 0; Class Mugwort 0; Class Oak 2; Class Penicillium crysogenum 0; Class Rough Pigweed 0; Class Sheep Sorrel 0; Class Sycamore 0; Class Timothy Grass 2; Class Walnut Tree 0; Class White Ash 0; Class White Mulberry 0; D001 IgE D pteronyssinus 2.08 kU/L; D002 - IgE D farinae 2.43 kU/L; E005 - IgE Dog Dander 4.11 kU/L; E072-IgE Mouse Urine <0.10 kU/L; G002 IgE Bermuda Grass 0.54 kU/L; G006 - IgE Timothy Grass 2.95 kU/L; I006-IgE Cockroach, German <0.10 kU/L; Immunoglobulin E 383 kU/L (<OR=114); M001 IgE Penicillium chrysogen <0.10 kU/L; M002 - IgE Cladosporium herbar <0.10 kU/L; M003 - IgE Aspergillus fumigat <0.10 kU/L; M006 - IgE Alternaria alternat <0.10 kU/L; T001 IgE Maple/Box Elder <0.10 kU/L; T003 IgE Common Silver Birch 2.07 kU/L; T006 - IgE Cedar, Mountain <0.10 kU/L; T007 - IgE Oak, White 1.18 kU/L; T008 IgE Elm, American <0.10 kU/L; T010 - IgE Walnut <0.10 kU/L; T011 - IgE Maple Leaf Sycamore <0.10 kU/L; T014 - IgE Cottonwood <0.10 kU/L; T015 - IgE Ash, White <0.10 kU/L; T070 - IgE White Mulberry <0.10 kU/L; W006 - IgE Mugwort <0.10 kU/L; W014 IgE Pigweed, Common <0.10 kU/L; W018 IgE Sheep Sorrel <0.10 kU/L
== END 2023-12-15 15:23 | disposition home or self-care (01) ==
LOC: HO.LAB 15:22
PROVIDERS: PCP Internal Medicine; Visit Provider Hospitalist
DX: T78.40XD Allergy, unspecified, subsequent encounter (principal); J45.40 Moderate persistent asthma, uncomplicated; J33.9 Nasal polyp, unspecified
CPT/HCPCS: 36415; 82785; 85025; 85652; 86003

== ENCOUNTER → 2024-01-04 13:55 | Outpatient (BNVA) | payer OTHER, SELFPAY | PROVIDERS: PCP Internal Medicine; Visit Provider Hospitalist | DX: Z71.89 Other specified counseling (principal) | CPT/HCPCS: 99211 ==

== ENCOUNTER 2024-03-04 09:17 | Outpatient (AMB) | payer OTHER, SELFPAY ==
--- NOTE | 2024-03-04 09:19 | MHC.OFFVIS ---
Intake Visit Reasons: Discuss colonoscopy Intake Note: Patient telehealth follow up to discuss Colonoscopy procedure. Patient denies any GI issues x today. 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 Allergies amoxicillin [AMOXICILLIN] Allergy (Severe, Verified 12/15/23 15:31) ANAPHYLAXIS Latex, Natural Rubber [LATEX, NATURAL RUBBER] Allergy (Unknown, Verified 12/15/23 15:31) rash Penicillins [PENICILLINS] Allergy (Unknown, Verified 12/15/23 15:31) TOLD TO AVOID SEASONAL ALLERGIES Allergy (Intermediate, Uncoded 12/15/23 15:31) ITCHY EYES HPI HPI Discuss colonoscopy: Details: 53 yr old f with hx asthma, ex smoker, high chol, endometriosis and hysterectomy being called for f/u RECAP: last seen 2020 long standing sx mainly diarrhea and bloating she also has mid abdo pain going into the left side can use bth 6-8 times/day, see mucous she also has night time sx, can be assoc with urgency has came close to soiling herself never saw blood in stool thinks diet is healthy has a lot of salad no obivous food triggers but food can make sx worse does admit pizza is one appetite is fair weight stable has colonoscopy ?2011 and was normal, no bx taken EGD/colon 07/2019---esophagitis, serrated polyp 14 mm tryptase was elevated x2 times but histamine was normal she does get hives and allergies for 1 year at least VIP, glucagon, gastrin,calcitonin all neg she was given trial of PPI referred to hematology and KIT mutation was neg /i felt she may have mast cell disorder she was rx loratadine, famotidine and cromolyn I cant find the RAST tests but apparently pos for milk, hazelnut and wheat She had seen Dr Echevarria for allergy and lots of environmental allergies she stopped coffee and this has helped a lot INTERIM: she is keen to get a follow up on her colonoscopy she has stopped smoking for 5 yrs now she got dupixent and has really helped her she has occ severe gerd waking up her at night she has been on 20 mg omeprazole overall she feels she is doing really well, no real complaints except for menopause she works at [employer], Assessment & Plan (1) Mast cell disorder vs environmental allergies: doing much better with zirtek 2/ GERD 3/ Father with CRC aged 64, plus personal hx of serrated polyp Plan: Assessments 1/ FH of CRC and hx of polyp 2/ Asthma and allergies, controlled PLAN: 1/ EGD and colonoscopy for GERD assessment and screening 2/ increase omeprazole to 40 mg meantime 3/ sent suprep PFS Medical History (Updated 03/04/24 @ 09:50 by Luma Diaz MD) Nasal polyposis Thymus hyperplasia IBS (irritable bowel syndrome) Personal history of nicotine dependence Allergies Asthma Hypercholesterolemia Surgical History History of hysterectomy (~2005) History of endoscopy History of colonoscopy Family History Father History of colon cancer Mother No problems noted. 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 Telehealth Platform: [employer] Location of provider rendering services: practice address Location of patient: address on file Patient Identification confirmed using: Name, : Yes Telehealth method: video Patient verbally consented to treatment: Yes Patient verbally consented to billing insurance company: Yes Minutes spent on Phone/Video with Pt.: 8 Assessment & Plan Assessment & Plan (1) Colorectal polyps: Code(s): K63.5 - Polyp of colon; K62.1 - Rectal polyp Category: Medical Plan: see above (2) GERD (gastroesophageal reflux disease): Code(s): K21.9 - Gastro-esophageal reflux disease without esophagitis Category: Medical Plan: egd Medications: New sodium,potassium,mag sulfates 17.5-3.13-1.6 gram (Suprep Bowel Prep Kit) DILUTE; drink 1/2 at 6-8 pm and half at 11 PM- 1AM 354 mL 0RF omeprazole 40 mg PO DAILY 90 caps 2RF Discontinued omeprazole Discontinued Reason: Doctor's Order 20 mg PO DAILY 90 caps 2RF Coding Level of Care Code Tele Est Pt Level 3 (59748) Diagnoses Colorectal polyps K63.5; K62.1 GERD (gastroesophageal reflux disease) K21.9
== END 2024-03-04 10:02 | disposition home or self-care (01) ==
LOC: HO.HGI 09:17
PROVIDERS: PCP Internal Medicine; Visit Provider Internal Medicine Gastroenterology
DX: K63.5 Polyp of colon (principal); K62.1 Rectal polyp; K21.9 Gastro-esophageal reflux disease without esophagitis
CPT/HCPCS: 99213

== ENCOUNTER → 2024-03-04 09:17 | Outpatient (BNVA) | payer OTHER, SELFPAY | PROVIDERS: PCP Internal Medicine; Visit Provider Internal Medicine Gastroenterology ==

== ENCOUNTER 2024-03-24 10:37 | Outpatient (REF) | payer OTHER, SELFPAY ==
[2024-03-24 11:29] LABS: Alanine Aminotransferase 18 U/L (0-31); Albumin Level 4.3 g/dL (3.5-5.0); Alkaline Phosphatase 72 U/L (39-117); Aspartate Amino Transferase 21 U/L (5-31); Bilirubin Direct 0.2 mg/dL (0.0-0.5); Bilirubin Total 0.4 mg/dL (0.0-1.0); Cholesterol 198 mg/dL (<200); HDL Cholesterol 56 mg/dL (>40); LDL Cholesterol Calculated 123 mg/dL (<100); Total Protein 7.4 g/dL (6.5-8.0); Triglycerides 95 mg/dL (<150)
[2024-03-24 11:57] LABS: Reflex LDLD? No
== END 2024-03-24 10:38 | disposition home or self-care (01) ==
LOC: HO.LNP 10:37
PROVIDERS: Visit Provider Internal Medicine
DX: E78.00 Pure hypercholesterolemia, unspecified (principal)
CPT/HCPCS: 80061; 80076

== ENCOUNTER 2024-03-28 15:52 | Outpatient (REF) | payer OTHER, SELFPAY ==
--- NOTE | ~2024-03-28 | CT_ITS ---
EXAMINATION: CT CHEST LOW-DOSE SCREENING WITHOUT CONTRAST CLINICAL INFORMATION: Asymptomatic patient meeting criteria for lung screening. Nicotine dependence. Patient is a former smoker who quit 4 years ago, 1 pack per-day for 30 years. PATIENT PACK-YEAR HISTORY: 1 pack per-day for 30 years. Current Smoker: No. If former smoker, years since quittin. COMPARISON: CT lung screening 03/27/2023. TECHNIQUE: Multidetector volumetric non-contrast CT imaging of the chest was obtained on a Siemens Somaton Definition scanner using low-dose screening CT technique. Axial thin section 0.625 mm reformations in soft tissue and lung windows were obtained. Sagittal and coronal reformations were obtained. Axial MIP images were also created and reviewed. RECONSTRUCTED WIDTH: 1.25 mm x 1.[address] examination was performed using dose optimization techniques as appropriate, variously including the following: *Automated exposure control. *Adjustment of mA and/or kV according to patient size (this includes techniques or standardized protocols for targeted exams where dose is matched to indication/reason for exam; i.e. extremities or head). *Use of iterative reconstruction technique. TOTAL EXAM DLP: 57 mGy-cm CTDIvol: 1.81 mGy FINDINGS: LUNGS: Lungs bilaterally symmetrically expanded. Mild bibasilar scarring is present. There is mild diffuse emphysema. A punctate right upper lobe granuloma is again seen (5:97). A small left lower lobe perifissural lymph node is unchanged (5:220 compare prior 4:229). No new, increasing-sized or suspicious focal lung nodule or mass. No effusion or pneumothorax. Central airways patent. LYMPHATIC STRUCTURES: Mild increased soft tissue density in the mediastinum consistent with residual thymus, unchanged. No mediastinal, hilar or axillary adenopathy or free fluid collection. THYROID GLAND: Unremarkable to the extent seen. CARDIOVASCULAR STRUCTURES: Aortic and heart size normal. No significant coronary artery calcifications. No pericardial effusion. UPPER ABDOMEN: Included portions of the solid organs in the upper abdomen unremarkable on noncontrast imaging. OSSEOUS STRUCTURES: No suspicious focal findings. SPINAL COMPRESSION: Absent. CT/CT lung screening IMPRESSION: No findings suspicious for malignancy/pulmonary nodule(s)/other. LUNG-RADS CATEGORY ASSESSMENT: 1: Negative. INCIDENTAL FINDINGS (S CATEGORY): Finding: No incidental findings. Significance Category: Normal or normal variant. RECOMMENDATION: Low dose lung CT. overall in 1 year. Visual estimate of coronary calcified plaque burden: None. However, this exam cannot replace a dedicated cardiac CT calcium score for accurate assessment. Electronically signed by: Ed Lee MD 04/10/2024 09:21 PM EDT
== END 2024-03-28 15:53 | disposition home or self-care (01) ==
LOC: HO.CT 15:52
PROVIDERS: PCP Internal Medicine; Visit Provider Physician Assistant Medical
DX: Z12.2 Encounter for screening for malignant neoplasm of respiratory organs (principal); Z87.891 Personal history of nicotine dependence
CPT/HCPCS: 71271

== ENCOUNTER 2024-04-18 15:21 | Outpatient (AMB) | payer OTHER, SELFPAY ==
[2024-04-18 15:31] VITALS: BP 126/78; PULSE 86; O2SAT 96; BMI 38.1
--- NOTE | 2024-04-18 15:31 | MHC.OFFVIS ---
Vital Signs 04/18/24 15:31 Height 5 ft 2 in Weight 208 lb 8.917 oz BMI 38.1 BP 126/78 Blood Pressure Location Lt brachial Position Sitting Pulse 86 Pulse Source Pulse Oximeter Pulse Oximetry (%) 96 Oxygen Delivery Method Room Air Intake Visit Reasons: Emphysema Drum Drier Required: No Allergies amoxicillin [AMOXICILLIN] Allergy (Severe, Verified 04/18/24 15:35) ANAPHYLAXIS Latex, Natural Rubber [LATEX, NATURAL RUBBER] Allergy (Unknown, Verified 04/18/24 15:35) rash Penicillins [PENICILLINS] Allergy (Unknown, Verified 04/18/24 15:35) TOLD TO AVOID SEASONAL ALLERGIES Allergy (Intermediate, Uncoded 04/18/24 15:35) ITCHY EYES HPI Comments Details: The patient is a 53-year-old woman with a history of tobacco dependency. Apparently she did have allergy symptoms when she was growing up. Significant allergy history an asthma history in the family. She never required prednisone or hospitalizations for her allergy symptoms. She did not use any inhalers. Subsequently after that she started smoking. She noticed that other people in her family were her being diagnosed with COPD. She mention that the diagnosis of COPD came later in her life. There were also smokers. The patient has been smoking until about 3 years ago when she had a case of anaphylaxis after her taking amoxicillin. During that visit she was brought to the [facility] ED. She responded to epinephrine. The patient also underwent a CT scan of the chest that was personally reviewed by me. It appears that she did have some areas suggestive of emphysema primarily in the mid lung zone area. No significant pulmonary nodules noted. It was also noted the patient has a congenital under developed right kidney. The patient smoked for more 30 years about a pack a day. She is currently 51 years old and I did recommend she start the lung cancer screening program at this time. She is using Advair and then switched over to Wixela. She has been using that for many years. She still having some issues with dyspnea on exertion and feels that she has some chest tightness. She is wondering if she can try any other medication. At this point we can optimize her therapy to start Trelegy and also undergo pulmonary function studies to assess her lung capacity. as far as her allergies he has significant allergies. She was tested by Allergy immunology many years ago and they demonstrated significant allergies although she does not have the current documentation did did recommend she start allergy shots but at that time her insurance was very limited and she did not have the time to invest. 01/27/2022 the patient is here for a pulmonary follow-up visit. Overall the patient has been due well. She has been using the Trelegy. Sometimes she feels she did better on the Advair. I did encourage her to continue the medicine at this time. We did review her pulmonary function studies which were reassuring. Her lung mechanics appears to be within normal limits. In addition to that she did participated in the lung cancer screening program and she did undergo a CT scan of the chest. Has not been formally read yet but I did review with her and appears that she does have multiple pulmonary nodules are subcentimeter in size. She will need to have a repeat CT scan in a year's time. If the final report is different will go ahead and let her know. At this point I do believe the patient will do better on singular just to help her with her allergic component of her obstructive airway disease. Again is reassuring that she does not have any evidence of COPD. 08/08/2022 patient is here for a pulmonary follow-up visit. Overall the patient is doing better. She does continue on the Trelegy 200 mcg. Will be reasonable to decrease it down to 100. at this point she just received a new prescription. therefore, she will call when she is running out in order to sent the lower dose. She has not had to use her rescue inhaler. She also did not have to start the singular. Usually her allergies are worse during the spring time. Therefore she will consider rate starting at 10. we did review her lung cancer screening CT scan. The CT scan is reassuring. 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 She is scheduled to have a repeat CT scan next summer. Will follow-up in a year's time. 08/21/2023 the patient is here for a pulmonary follow-up visit. She does complaint of worsening congested cough. Productive in nature. Difficult to expectorate. The patient has tried her respiratory medications her rescue inhaler with only partial improvement of the symptoms. Also feels she has a component of sinusitis. Denies any fevers or chills. She has tested negative for COVID. We also looked at her last CT scan which was back in March 2023 demonstrating a rads 1 which is very good. The patient is scheduled to have a repeat CT scan in the summer of 2023. will go ahead and continue her respiratory therapy. She is having increasing allergy symptoms. Will try Astelin nasal spray. Also, she does have a history of nasal polyposis. Will go ahead and check her allergy levels to see if she has a candidate for biologic therapy. 12/15/2023 the patient is here for a pulmonary follow-up visit. The patient continues to struggle with her breathing and also nasal congestion. Patient has a history of nasal polyps in addition to significant asthma. She has been using the inhalers in the allergy therapy with her good adherence. Still she is having Daily symptoms requiring rescue inhaler. Feels like nasal polyps getting worse as well. Causing significant blockage of the nasal sinuses. The patient will undergo blood work today. She is already maximized on respiratory therapy. I do believe she will be a good candidate for biologics primarily Dupixent review of the asthma eczema in the nasal polyps will go ahead and request blood work in addition to start process to start the biologic. 04/18/2024 the patient is here for a pulmonary follow-up visit. Overall she is doing a lot better. The Dupixent injections have been very affecting beneficial. She does use it every 2 weeks. Denies any allergic reactions at the site. She is having some irritation of the eyes. Although she states that she has had that even before the injections. She does use his histamine drops to the eyes and they usually sufficient. Therefore she will continue to monitor she knows that the conjunctivitis could be a result of the Dupixent. The inhaler therapy has also been affecting beneficial though now that she is on biologic therapy will going to start deescalating her respiratory regimen. She is also breathing better through her nose as the Dupixent is helping her with her nasal polyposis. No recent imaging to review. Will continue with current respiratory therapy and follow-up in the springtime when she has worsening symptoms. [facility] Medical History (Updated 03/04/24 @ 09:50 by Luma Diaz MD) Nasal polyposis Thymus hyperplasia IBS (irritable bowel syndrome) Personal history of nicotine dependence Allergies Asthma Hypercholesterolemia Surgical History History of hysterectomy (~2005) History of endoscopy History of colonoscopy Family History Father History of colon cancer Mother No problems noted. 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/[employer] Review of Systems Const Denies body aches and Denies fever(s) Eyes Denies change in vision ENT Denies change in voice, Denies nasal congestion, Denies nasal discharge, Denies nasal obstruction, Denies post nasal drip and Denies sinus pressure Card Denies chest pain and Denies dyspnea on exertion Resp Denies chest congestion, Reports cough, Denies dyspnea on exertion and Denies wheezing GI Reports no additional complaints Musc Reports no additional complaints Neuro Reports no additional complaints Aller/Immun Denies wheezing Physical Exam Vital Signs: Last Vital Signs Pulse 86 04/18/24 15:31 BP 126/78 04/18/24 15:31 Pulse Ox 96 04/18/24 15:31 Oxygen Delivery Method Room Air 04/18/24 15:31 BMI result Body Mass Index 38.1 Const General: alert Neck Neck: Yes normal visual inspection, Yes full ROM and Yes no lymphadenopathy Chest Chest palpation & inspection: normal inspection of the chest Resp Effort & Inspection: normal respiratory effort Auscultation: no rales, no rhonchi and no wheezes Cardio Rate: regular rate Rhythm: regular rhythm Heart sounds: S1 normal heart sound present and S2 normal heart sound present GI Palpation (GI): Soft to palpation and nontender Auscultation: normal bowel sounds Skin General skin exam: rashes and/or lesions noted Assessment & Plan Assessment & Plan (1) Asthma: Code(s): J45.909 - Unspecified asthma, uncomplicated Category: Medical Qualifiers: Asthma complication type: uncomplicated Asthma persistence: persistent Asthma severity: moderate Qualified Code(s): J45.40 - Moderate persistent asthma, uncomplicated (2) Allergies: Code(s): T78.40XA - Allergy, unspecified, initial encounter Category: Medical Qualifiers: Encounter type: subsequent encounter Qualified Code(s): T78.40XD - Allergy, unspecified, subsequent encounter (3) 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 Singulair qHS during the spring if her allergies worsen continue Dupixent [id number] follow-up in 6-8 months Medications: Changed From albuterol sulfate 90 mcg/actuation 2 inhalations inhalation Q6H 90 days PRN 3 ea 3RF shortness of breath or wheezing J44.9 - Chronic obstructive pulmonary disease, unspecified To albuterol sulfate 90 mcg/actuation 2 inhalations inhalation Q6H PRN 1 ea 11RF shortness of breath or wheezing 30 days J44.9 - Chronic obstructive pulmonary disease, unspecified Coding Level of Care Code Est Pt Level 4 (51874) Diagnoses Moderate persistent asthma without complication J45.40 Asthma complication type: uncomplicated Asthma persistence: persistent Asthma severity: moderate Allergy, subsequent encounter T78.40XD Encounter type: subsequent encounter Thymus hyperplasia E32.0 Nasal polyposis J33.9 Time Spent (min) 16
== END 2024-04-18 15:50 | disposition home or self-care (01) ==
PROVIDERS: PCP Internal Medicine; Visit Provider Hospitalist
DX: J45.40 Moderate persistent asthma, uncomplicated (principal); T78.40XD Allergy, unspecified, subsequent encounter; E32.0 Persistent hyperplasia of thymus; J33.9 Nasal polyp, unspecified
CPT/HCPCS: 99214

== ENCOUNTER → 2024-04-18 15:21 | Outpatient (BNVA) | payer OTHER, SELFPAY | PROVIDERS: PCP Internal Medicine; Visit Provider Hospitalist | DX: J45.40 Moderate persistent asthma, uncomplicated (principal); T78.40XD Allergy, unspecified, subsequent encounter; J33.9 Nasal polyp, unspecified ==

== ENCOUNTER 2024-06-16 10:28 | Day surgery (SDC) | payer BC, SELFPAY ==
[2024-06-14 13:35] VITALS: BMI 38.0
--- NOTE | 2024-06-15 09:23 | HO.ANESPROP2 ---
Documented by User: Moraima Romano NP 06/15/24 09:23 HPI - Anesthesia Eval Consult details Narrative: 53yo F for Upper Endoscopy and Colonoscopy PMF Active Problems Active Problems: All Active Problems GERD (gastroesophageal reflux disease) (Acute) Colorectal polyps (Acute) Sinusitis (Acute) Nasal polyposis (Acute) Thymus hyperplasia (Acute) Personal history of nicotine dependence (Acute) Allergies (Acute) Asthma (Acute) Mast cell disorder (Acute) Past Medical History Medical History Renal agenesis Nasal polyposis Thymus hyperplasia IBS (irritable bowel syndrome) Personal history of nicotine dependence Allergies Asthma Hypercholesterolemia Family History Family History Father History of colon cancer Mother No problems noted. Surgical History Surgical History History of hysterectomy (~2005) History of endoscopy History of colonoscopy Social History Social History Household Members: Spouse Alcohol intake: never Patient Tobacco Use Status: Former Tobacco user Tobacco use type: Cigarette Years Smoked: (onset 18yo - 1ppd x 30yrs, 30pyh, quit 2019) Use of substances other than those prescribed or required for medical reasons: No Substance Use Type: Marijuana Are you DNR?: No Advance Directives: No Advance Directives Information Provided: Yes Recently lost weight without trying: No service: No Current occupational status: employed 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 Allergies Allergy/AdvReac Type Severity Reaction Status Date / Time amoxicillin [AMOXICILLIN] Allergy Severe ANAPHYLAXIS Verified 06/16/24 10:41 Latex, Natural Rubber Allergy Unknown rash Verified 06/16/24 10:41 [LATEX, NATURAL RUBBER] Penicillins [PENICILLINS] Allergy Unknown TOLD TO Verified 06/16/24 10:41 AVOID SEASONAL ALLERGIES Allergy Intermediate ITCHY EYES Uncoded 04/18/24 15:35 Home Medications ?Medication ?Instructions ?Recorded ?Confirmed ?Last Taken ?Type cetirizine 10 mg tablet (Zyrtec) 10 mg PO DAILY PRN Allergy Symptoms 12/10/21 06/16/24 Unknown History rosuvastatin 20 mg tablet 20 mg PO BEDTIME 12/10/21 06/16/24 Unknown History Exam Height,Weight and Vital Signs: Height 5 ft 2 in Weight 94.347 kg Assessment and Plan Assessment Anesthesia Assessment: Chart Reviewed Documented by User: Zayra Negro MD 06/16/24 11:38 PMF Past Medical History Medical History Renal agenesis Nasal polyposis Thymus hyperplasia IBS (irritable bowel syndrome) Personal history of nicotine dependence Allergies Asthma Hypercholesterolemia Family History Family History Father History of colon cancer Mother No problems noted. Surgical History Surgical History History of hysterectomy (~2005) History of endoscopy History of colonoscopy History of Problems with Anesthesia: No Social History Social History Household Members: Spouse Alcohol intake: never Patient Tobacco Use Status: Former Tobacco user Tobacco use type: Cigarette Years Smoked: (onset 18yo - 1ppd x 30yrs, 30pyh, quit 2018) Use of substances other than those prescribed or required for medical reasons: No Substance Use Type: Marijuana Are you DNR?: No Advance Directives: No Advance Directives Information Provided: Yes Recently lost weight without trying: No service: No Current occupational status: employed 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 Allergies Allergy/AdvReac Type Severity Reaction Status Date / Time amoxicillin [AMOXICILLIN] Allergy Severe ANAPHYLAXIS Verified 06/16/24 10:41 Latex, Natural Rubber Allergy Unknown rash Verified 06/16/24 10:41 [LATEX, NATURAL RUBBER] Penicillins [PENICILLINS] Allergy Unknown TOLD TO Verified 06/16/24 10:41 AVOID SEASONAL ALLERGIES Allergy Intermediate ITCHY EYES Uncoded 04/18/24 15:35 Home Medications ?Medication ?Instructions ?Recorded ?Confirmed ?Last Taken ?Type cetirizine 10 mg tablet (Zyrtec) 10 mg PO DAILY PRN Allergy Symptoms 12/10/21 06/16/24 Unknown History rosuvastatin 20 mg tablet 20 mg PO BEDTIME 12/10/21 06/16/24 Unknown History Exam Airway Mallampati Class: II TM Dist: >3cm Neck ROM: Full Loose/Missing/Broken Teeth: No Heart: RRR Lungs: CTA Assessment and Plan Assessment Anesthesia Assessment: Anesthesia Plan Discussed Final Anesthetic Review History of Problems with Anesthesia: No NPO: Yes ASA Class: II Final Preanesthetic Review: Meds/Allgs Chart Reviewed, Consent Obtained/Reviewed and Anes Risks/Benef Reviewed Patient Risk: Low Procedure Risk: Intermediate Anesthetic Plan Anesthetic Plan: MAC: Disposition: Standard PACU
[2024-06-16 10:43] VITALS: BMI 35.3
[2024-06-16 10:49] VITALS: BP 125/94; PULSE 105; RESP 15; TEMP 36.6; O2SAT 97
[2024-06-16] MEDS: Lactated Ringers 1,000 ML 100 ML IVCONT (11:03)
--- NOTE | 2024-06-16 11:16 | MHC.SHP ---
Pre-Procedural Eval Section A - 24 Hr Update-Section A only Date of Service: 06/16/24 Section B - Complete if H&P > 30 days Chief Complaint: Gastro-esophageal reflux disease without esophagit Details of Present Illness: hx of colon polyps Relevant Family History (Specify if Yes): Yes Relevant Social History: Other (specify) Present Medications: see Short Stay Collaborative assessment Medical History: Significant History (Nasal polyposis Thymus hyperplasia IBS (irritable bowel syndrome) Personal history of nicotine dependence Allergies Asthma Hypercholesterolemia) History of Previous Operations: Relevant previous surgery/procedure and date(s) (History of hysterectomy (~2005) History of endoscopy History of colonoscopy) Allergies: Allergies Allergy/AdvReac Type Severity Reaction Status Date / Time amoxicillin [AMOXICILLIN] Allergy Severe ANAPHYLAXIS Verified 06/16/24 10:41 Latex, Natural Rubber Allergy Unknown rash Verified 06/16/24 10:41 [LATEX, NATURAL RUBBER] Penicillins [PENICILLINS] Allergy Unknown TOLD TO Verified 06/16/24 10:41 AVOID SEASONAL ALLERGIES Allergy Intermediate ITCHY EYES Uncoded 04/18/24 15:35 Review of Systems Sugical H&P ROS: Negative: Constitution, Cardiovascular, Respiratory, Neurological, Psychiatric, Hem-Onc, Allergic/Immunologic, Gastrointestinal, Genitourinary, Musculoskeletal, Integumentary, Endocrine and Eyes/Ears/Nose/Throat Exam Surgical H&P Exam: Normal: HEENT, Normal: Heart, Normal: Lungs, Normal: Extremities, Normal: Abdomen, Normal: Skin and Normal: Neurological Plan Diagnosis/Plan: Unchanged I have reviewed the history and physical and performed a pertinent physical examination on my patient. No changes have occurred unless specified. Time Spent With Patient Time: Total time managing care of this patient today ____ minutes.
--- NOTE | 2024-06-16 11:31 | P.OPN-COLO_ITS ---
Colonoscopy Operative Note Operative Note Date of Service: 06/16/24 Narrative: Operative Information Procedure Description: EGD, Colonoscopy Indication: GERD, hx of colon polyp, mast cell d/o Anesthesia: MAC FLEXIBLE TRANSORAL UPPER GASTROINTESTINAL ENDOSCOPY AND COLONOSCOPY PROCEDURE NOTE UPPER ENDOSCOPY Consent: Indications for the procedure and potential complications of bleeding, perforation, reaction to medications and missed diagnosis were discussed with the patient and informed consent was obtained. Instrument: Olympus GIF H 190 J mid size upper endoscope Monitoring: Vital signs and clinical assessment, continuous EKG monitoring, Pulse oximetry, Carbon Dioxide monitoring and blood pressure monitoring were done throughout the procedure. Procedure: The patient was placed in the left lateral decubitis position and pre-procedure medications were administered and a bite block was placed. The endoscope was inserted into the mouth and advanced under direct vision to the third part of duodenum. A careful inspection was made as the upper endoscope was withdrawn including a retroflexed examination of the proximal stomach; Findings and interventions are described below. Findings: Larynx:normal Esophagus: GE junction at 35 cm, diaphragm hiatus at 35 cm, normal mucosa, bx taken from distal esophagus Stomach: Normal mucosa. Biopsies were obtained. Grade 2 flap valve on retroflexed examination of the cardia. x 2 polyps noted in mid body 5-8 mm removed with cold snare Duodenum: Normal bulb and descending duodenum, Intervention: Biopsies as noted above, cold snare COLONOSCOPY Instrument: Olympus variable stiffness pediatric scope 190L Colonoscopy Monitoring: Vital signs and clinical assessment, continuous EKG monitoring, Pulse oximetry, Carbon Dioxide monitoring and blood pressure monitoring were done throughout the procedure. Colon withdrawal time was 11 minutes. Procedure: The patient was placed in the left lateral decubitis position and pre-procedure medications were administered. After a digital rectal examination of the ano-rectum, the video colonoscope was inserted into the rectum and advanced through the colon to the cecum/TI. The colonoscope was slowly withdrawn in a retrograde panoramic fashion and the colon mucosa was carefully examined including a retroflexed view of the rectum. Findings and interventions are described below. Procedure Difficulty:moderate Findings: Terminal Ileum- few erosions seen, bx taken Bx taken from right, left and rectal areas Cecum:normal Ascending Colon: normal Transverse Colon -normal Descending Colon:normal Sigmoid Colon: normal Rectum: Retroflexion with small internal hemorrhoids, grade I Anorectum - normal Colon preparation: [place] Bowel Preparation Scale Right colon; 2 Transverse colon: 3 Left colon; 3 (0 = Unprepared colon segment with mucosa not seen due to solid stool that cannot be cleared. 1 = Portion of mucosa of the colon segment seen, but other areas of the colon segment not well seen due to staining, residual stool and/or opaque liquid. 2 = Minor amount of residual staining, small fragments of stool and/or opaque liquid, but mucosa of colon segment seen well. 3 = Entire mucosa of colon segment seen well with no residual staining, small fragments of stool or opaque liquid) Impression and Post Procedure Diagnosis: Endoscopy Findings: gastric polyps Colonoscopy Findings: erosive ileitis Plan: Await Pathology results Repeat Colonoscopy in 5 years due to prior polyp and FH of CRC or earlier if clinically indicated High fiber diet leaflet avoid straining at stool, epsom salts and sitz bath, anusol supps or cream consider CTe to r/o Crohns, check nsaid hx Above findings were reviewed with the patient and relevant handouts were provided if indicated.
[2024-06-16 11:53] VITALS: BP 119/80; PULSE 84; RESP 18; TEMP 36.3; O2SAT 97
[2024-06-16 12:09] VITALS: BP 119/86; PULSE 78; RESP 17; TEMP 36.3; O2SAT 96
== END 2024-06-16 12:34 | disposition home or self-care (01) ==
PROVIDERS: PCP Internal Medicine; Visit Provider Internal Medicine Gastroenterology
PROC: (CPT 45380; principal; 2024-06-16 12:10)
DX: Z12.11 Encounter for screening for malignant neoplasm of colon (principal); Z80.0 Family history of malignant neoplasm of digestive organs; Z86.0101 Personal history of adenomatous and serrated colon polyps; K52.89 Other specified noninfective gastroenteritis and colitis; D89.40 Mast cell activation, unspecified; K64.0 First degree hemorrhoids; K58.9 Irritable bowel syndrome, unspecified; K21.9 Gastro-esophageal reflux disease without esophagitis; K31.7 Polyp of stomach and duodenum; K44.9 Diaphragmatic hernia without obstruction or gangrene; E78.00 Pure hypercholesterolemia, unspecified; E32.0 Persistent hyperplasia of thymus; J33.9 Nasal polyp, unspecified; J45.909 Unspecified asthma, uncomplicated; Z88.1 Allergy status to other antibiotic agents; Z91.041 Radiographic dye allergy status; Z87.891 Personal history of nicotine dependence; Z98.890 Other specified postprocedural states; Z79.899 Other long term (current) drug therapy
CPT/HCPCS: 45380; 43251; 43239; 88305; 88313; 88341; 88342; J2003; J2704

== ENCOUNTER → 2024-06-16 10:28 | Outpatient (BNV) | payer BC, SELFPAY | PROVIDERS: PCP Internal Medicine; Visit Provider Internal Medicine Gastroenterology | DX: Z12.11 Encounter for screening for malignant neoplasm of colon (principal); Z80.0 Family history of malignant neoplasm of digestive organs; Z86.0100 Personal history of colon polyps, unspecified; K64.0 First degree hemorrhoids; K21.9 Gastro-esophageal reflux disease without esophagitis; K31.7 Polyp of stomach and duodenum | CPT/HCPCS: 43239; 43251; 45380 ==

== ENCOUNTER 2024-06-21 12:26 | Outpatient (REF) | payer BC, SELFPAY ==
[2024-06-21 12:53] LABS: Alanine Aminotransferase 24 U/L (0-31); Albumin Level 4.1 g/dL (3.5-5.0); Alkaline Phosphatase 71 U/L (39-117); Aspartate Amino Transferase 23 U/L (5-31); Bilirubin Direct 0.2 mg/dL (0.0-0.5); Bilirubin Total 0.3 mg/dL (0.0-1.0); Cholesterol 171 mg/dL (<200); HDL Cholesterol 51 mg/dL (>40); LDL Cholesterol Calculated 96 mg/dL (<100); Triglycerides 123 mg/dL (<150)
[2024-06-21 13:22] LABS: Reflex LDLD? No
== END 2024-06-21 12:27 | disposition home or self-care (01) ==
LOC: HO.LNP 12:26
PROVIDERS: Visit Provider Internal Medicine
DX: E78.00 Pure hypercholesterolemia, unspecified (principal)
CPT/HCPCS: 80061; 80076

== ENCOUNTER → 2024-06-27 09:10 | Outpatient (AMB) | payer BC, SELFPAY ==
--- NOTE | 2024-06-27 09:11 | A.OFFVIS_ITS ---
Intake Visit Reasons: s/p egd/colon Intake Note: Samira presents as a follow up EGD and COLO. CC: States that this is to go over results to her procedures. No concerns at this time. Desktop Specialist Required: No Allergies amoxicillin [AMOXICILLIN] Allergy (Severe, Verified 06/27/24 09:12) ANAPHYLAXIS Latex, Natural Rubber [LATEX, NATURAL RUBBER] Allergy (Unknown, Verified 06/27/24 09:12) rash Penicillins [PENICILLINS] Allergy (Unknown, Verified 06/27/24 09:12) TOLD TO AVOID SEASONAL ALLERGIES Allergy (Intermediate, Uncoded 06/27/24 09:12) ITCHY EYES HPI HPI s/p egd/colon: Details: 53 yr old f with hx asthma, ex smoker, high chol, endometriosis and hysterectomy being called for f/u RECAP: last seen 2020 long standing sx mainly diarrhea and bloating she also has mid abdo pain going into the left side can use bth 6-8 times/day, see mucous she also has night time sx, can be assoc with urgency has came close to soiling herself never saw blood in stool thinks diet is healthy has a lot of salad no obivous food triggers but food can make sx worse does admit pizza is one appetite is fair weight stable has colonoscopy ?2011 and was normal, no bx taken EGD/colon 07/2019---esophagitis, serrated polyp 14 mm tryptase was elevated x2 times but histamine was normal she does get hives and allergies for 1 year at least VIP, glucagon, gastrin,calcitonin all neg she was given trial of PPI referred to hematology and KIT mutation was neg /i felt she may have mast cell disorder she was rx loratadine, famotidine and cromolyn I cant find the RAST tests but apparently pos for milk, hazelnut and wheat She had seen Dr Echevarria for allergy and lots of environmental allergies she stopped coffee and this has helped a lot EGD/COLO: erosions TI, path with high eos and focal colitis, INTERIM: reviewed results still has abn bowel habits admits to joint pains and swelling no mouth sores or ulcers Assessment & Plan (1) colitis and high IEL in duodenum--suspect IBD PLAN: 1/ check celiac and H pylori--stop ppi for 2 wks, can use carafate 2/ CTe 3/ baseline lactoferrin and trial of apriso PFSH Medical History Renal agenesis Nasal polyposis Thymus hyperplasia IBS (irritable bowel syndrome) Personal history of nicotine dependence Allergies Asthma Hypercholesterolemia Surgical History History of hysterectomy (~2005) History of endoscopy History of colonoscopy Family History Father History of colon cancer Mother No problems noted. 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 Telehealth Platform: [employer] Location of provider rendering services: practice address Location of patient: address on file Patient Identification confirmed using: Name, : Yes Telehealth method: video Patient verbally consented to treatment: Yes Patient verbally consented to billing insurance company: Yes Minutes spent on Phone/Video with Pt.: 8 Assessment & Plan Assessment & Plan (1) Colitis: Code(s): K52.9 - Noninfective gastroenteritis and colitis, unspecified Category: Medical Plan: see above Orders: Orders CT enterography Today K52.9 - Noninfective gastroenteritis and colitis, unspecified Transglutaminase Ab IgG Today G89.29 - Other chronic pain, K52.9 - Noninfective gastroenteritis and colitis, unspecified, R10.33 - Periumbilical pain Transglutaminase IgA Today K52.9 - Noninfective gastroenteritis and colitis, unspecified H Pylori Breath Test Today K52.9 - Noninfective gastroenteritis and colitis, unspecified Lactoferrin, Fecal, Quant. Today K51.50 - Left sided colitis without complications, K52.9 - Noninfective gastroenteritis and colitis, unspecified Medications: New sucralfate 10 mL PO BID 1,000 mL 0RF mesalamine ER (Apriso) 1.5 grams (4 x 0.375 gram) PO QAM 120 caps 1RF Coding Level of Care Code Tele Est Pt Level 4 (01777) Diagnoses Colitis K52.9
== END ==
PROVIDERS: PCP Internal Medicine; Visit Provider Internal Medicine Gastroenterology
DX: K52.9 Noninfective gastroenteritis and colitis, unspecified (principal)
CPT/HCPCS: 99212

== ENCOUNTER 2024-10-18 10:42 | Outpatient (REF) | payer BC, SELFPAY ==
[2024-10-18 10:49] LABS: MANUAL DIFF FLAG NO
[2024-10-18 11:16] LABS: Basophils Absolute Auto 0.1 X10*3/uL (0.0-0.2); Basophils Percent Auto 0.8 % (0-2); Eosinophils Absolute Auto 0.5 X10*3/uL (0.0-0.4); Eosinophils Percent Auto 7.1 % (0-4); Hematocrit 44.9 % (37.0-47.0); Hemoglobin 14.1 g/dl (12.0-16.0); Imm Gran Abs Auto 0.04 X10*3/uL (0.00-0.03); Imm Gran Pct Auto 0.5 % (0.0-0.4); Lymphocytes Absolute Auto 2.3 X10*3/uL (1.2-4.9); Lymphocytes Percent Auto 30.8 % (20-40); Mean Corpuscular HGB Conc 31.4 g/dl (31.0-35.0); Mean Corpuscular Hemoglobin 27.1 pg (27.0-33.0); Mean Corpuscular Volume 86.3 fL (80.0-98.0); Mean Platelet Volume 12.5 fL (9.4-12.3); Monocytes Absolute Auto 0.5 X10*3/uL (0.1-1.2); Monocytes Percent Auto 7.4 % (2-11); Neutrophils Absolute Auto 3.9 x10*3/uL (2.0-8.3); Neutrophils Percent Auto 53.4 % (45-73); Platelet Count 250 X10*3/uL (160-400); Red Cell Distribution Width 14.5 % (11.0-16.0); White Blood Count 7.3 X10*3/uL (4.8-10.8)
[2024-10-18 11:23] LABS: Appearance Urine Clear; Color Urine Yellow; Glucose Urine UA Negative (Negative); Leukocyte Esterase Urine Moderate (2+) (Negative); Nitrite Urine Negative (Negative); PH 5.5 (5.0-9.0); UMIC TRIGGER UACC YES; Urine Blood Negative (Negative); Urine Ketones Negative (Negative); Urine Protein Negative (Neg-Trace)
[2024-10-18 11:24] LABS: Alanine Aminotransferase 24 U/L (0-31); Alkaline Phosphatase 77 U/L (39-117); Anion Gap 10 (12-20); Aspartate Amino Transferase 23 U/L (5-31); Bilirubin Total 0.3 mg/dL (0.0-1.0); Blood Urea Nitrogen 15 mg/dL (9-16); Calcium 9.2 mg/dL (8.4-10.2); Carbon Dioxide 26 mmol/L (22-29); Chloride 112 mmol/L (96-108); Cholesterol 195 mg/dL (<200); Estimated Glomerular Filt Rate > 60; Glucose Fasting 114 mg/dL (60-99); HDL Cholesterol 54 mg/dL (>40); LDL Cholesterol Calculated 88 mg/dL (<100); Potassium 3.9 mmol/L (3.3-5.1); Sodium 144 mmol/L (135-145); Total Protein 7.4 g/dL (6.5-8.0); Triglycerides 266 mg/dL (<150)
[2024-10-18 11:26] LABS: Bacteria Urine None Seen (None Seen); RBC Urine 0-2 /HPF (0-2); UACC Culture Trigger YES
== END 2024-10-18 10:43 | disposition home or self-care (01) ==
LOC: HO.LNP 10:42
PROVIDERS: Visit Provider Internal Medicine
DX: Z00.00 Encounter for general adult medical examination without abnormal findings (principal); E78.00 Pure hypercholesterolemia, unspecified
CPT/HCPCS: 80053; 80061; 81001; 85025; 87086

== ENCOUNTER 2024-11-14 14:49 | Outpatient (REF) | payer BC, SELFPAY ==
--- OUTSIDE RECORDS SUMMARY | 2024-11-14 17:24 | XMS_ITS ---
Author Organization Daniel Bragg MD Address [address] [place], [place] [id number] Care Team Providers Care Career Development Consultant Name Role Phone MahsaKasian Primary Care Provider [phone] Results Component Value Reference Range Notes Complete Blood Count Auto Di ff Reviewed date:10/18/2024 12:20:03 PM Interpretation: Performing Lab:[facility], [address] [place] [phone] Notes/Report: White Blood Count 7.3 4.8-10.8 X10*3/uL [...] NRBC Abs Auto 0.000 0.0-0.012 X10*3/uL Comprehensive [place]. Panel Fa st Reviewed date:10/18/2024 12:43:14 PM Interpretation: Performing Lab:[facility], [address] [place] [phone] Notes/Report: Sodium 144 135-145 mmol/L Potassium 3.9 [...] Panel Reviewed date:10/18/2024 12:09:21 PM Interpretation: Performing Lab:[facility], [address] [place] [phone] Notes/Report: Triglycerides 266 <150 mg/dL Desirable Triglyceride: [...] t Reviewed date:10/18/2024 12:20:56 PM Interpretation: Performing Lab:[facility], [address] [place] [id number] Notes/Report: Urine, Clean Catch Color Urine Yellow Appearance Urine Clear PH 5.5 5.0-9.0 Glucose Urine UA Negative Negative mg/dL Urine Blood Negative Negative Specific [place] - Urine 1.020 1.005-1.025 Urine Protein Negative [...] Location Date Provider Diagnosis Daniel Bragg MD [address] [place] [address] Drive [address] [place], [place] [phone] 10/18/2024 Daniel Bragg Blood tests for rout ine general physical examination Z00.00 and Pure hypercholesterolemia E78.00 Assessments Encounter Date Diagnosis (ICD Code) Assessment Notes Treatment Notes Treatment Clinical Notes Section Notes 10/18/2024 Blood tests for edwin ine general physical examination (ICD-10 - Z00.00) 10/18/2024 Pure hypercholesterolemia (ICD-10 - E78.00) Plan Of Treatment Next Appt Details Provider Name:Daniel Coates ier, 05/04/2025 07:45:00 AM, [address] [place] [address], Suite [facility], [place], [place], [phone], Provider Name:Daniel Darrell Aminata ier, 10/20/2025 07:30:00 AM, [address] [place] [address], [place] [address], [place], [place], [phone], Provider Name:Daniel Coates ier, 10/27/2025 08:30:00 AM, [address] [place] [address], Suite [facility], [place], [place], [phone], Progress Notes * Samira FIGUEROA LDOB: [birth year] (54 yo F)Acc No.[id number]:10/18/2024 Progress Note Patient:?MCKAYCHRIS Samira Dominguez Provider:?Daniel Bragg MD :1970???Age:54 Y???Sex:Female D ate:10/18/2024 Address:[address] [place], [place] [phone] Subjective: * Chief Complaints: * ???1. Yearly faxing labs. * Medical History:? Objective: * Vitals:? Assessment: * Assessment: 1.?Blood tests for routine g eneral physical examination - Z00.00 (Primary)???2.?Pure hypercholesterolemia - E78.00??? Plan: * Treatment: 2.?Pure hypercholesterolemia ?LAB: Complete Blood Count Auto Diff (Collection Date & Time - 10/18/2024 07:15 AM) ?LAB: Comprehensive [place]. Panel Fast (Collection Date & Time - 10/18/2024 07:15 AM) ?LAB: Lipid Panel (Collection Date & Time - 10/18/2024 07:15 AM) ?LAB: UA ClnCatch+Micro w/rflx Cult (Collection Date & Time - 10/18/2024 07:15 AM) * Procedure Codes:?41112 VENIP UNCT, ROUTINE* * * The named appointment provid er may or may not be the originator of this progress note, and it is not deemed complete until electronically signed by the appointment provider. Sign off status: Pending * Provider:?Daniel Bragg MD Date:?0 10/18/2024 Generated for Steve ramírez/Sisi/Hardikitting on:?11/14/2024 05:24 PM EDT
--- OUTSIDE RECORDS SUMMARY | 2024-11-14 17:24 | XMS_ITS ---
Author Organization Daniel Bragg MD Address [address] [place] [phone] Care Team Providers Care Orthophoto Tech/Draftsman Name Role Phone Daniel Bragg Primary Care [...] Location Date Provider Diagnosis Daniel Bragg MD [address] [place] [address] [place] [phone] 10/25/2024 Daniel Bragg Annual physical exam Z00.00 [...] Reason: Provider Name:Daniel montero, 05/04/2025 07:45:00 AM, [address] [place] [address], [address], [phone], Provider Name:Daniel montero, 10/20/2025 07:30:00 AM, [address] [place] [address], [place] [address], [place], [phone], Provider Name:Daniel montero, 10/27/2025 08:30:00 AM, [address] [place] [address], [address], [phone], Progress Notes * Samira FIGUEROA LDOB: [birth year] (54 yo F)Acc No.[id number]:10/25/2024 Progress Notes Patient:?Samira FIGUEROA Provider:?Daniel Bragg MD :1970???Age:54 Y???Sex:Female D ate:10/25/2024 Address:[address] [place], [place] [phone] Subjective: * Chief Complaints: * ???Annual visit * HPI: ???Depression Screening:?PHQ-9?Little interest or pleasure in doing things?Not at all,?Feeling down, depressed, or hopeless?Not at all,?Trouble falling or staying asleep, or sleeping too much?Not at all,?Feeling tired or having little energy?Not at all,?Poor appetite or overeating?Not at all,?Feeling bad about yourself or that you are a failure, or have let yourself or your family down?Not at all,?Trouble concentrating on things, such as reading the newspaper or watching television?Not at all,?Moving or speaking so slowly that other people could have noticed; or the opposite, being so fidgety or restless that you have been moving around a lot more than usual?Not at all,?Thoughts that you would be better off or of hurting yourself in some way?Not at all,?Total Score?0.?Interpretation and Intervention?Depression Screening Findings?Negative,?Follow-Up for Depression?: review of PHQ-9 found negative result, no follow-up needed.?Communication Needs:?Communication Needs?Does the patient have a hearing impairment?No,?Does the patient have a vision impairment??Yes,?If yes, what is the vision impairment??Glasses,?Does the patient have a cognition impairment??No.?SDOH Questions:?SDOH Questions?In the past year have you been worried about losing housing??No,?In the past year have you or any family members you live with been unable to get any of the following when it was really needed? Check all that apply:?None.?Symptom(s):? patient is a 54 yo female here for annual visit with review of recent labs and follow up of chronic issues.having a lot of problems with allergies and had been on dupiximet? but insurance said no./ when walking with bare feet gets occasional nerve jolt on top of foot. * ROS:?General/Constitutional:?Change in appetite?denies.?Chills?denies.?Fever?denies.?Ophthalmologic:?Blurred vision?denies.?Discharge?denies.?Pain?denies.?ENT:?Decreased hearing?denies.?Sore throat?denies.?Swollen glands?denies.?Endocrine:?Cold intolerance?denies.?Excessive thirst?denies.?Heat intolerance?denies.?Weight loss?denies.?Respiratory:?Cough?denies.?Shortness of breath at rest?denies.?Shortness of breath with exertion?denies.?Wheezing?denies.?Cardiovascular:?Chest pain at rest?denies.?Chest pain with exertion?denies.?Irregular heartbeat?denies.?Shortness of breath?denies.?Gastrointestinal:?Abdominal pain?denies.?Change in bowel habits?denies.?Diarrhea?denies.?Nausea?denies.?Rectal bleeding?denies.?Vomiting?denies .?Genitourinary:?Blood in urine?denies.?Difficulty urinating?denies.?Frequent urination?denies.?Urinary incontinence?Denies.?Musculoskeletal:?Painful joints?denies.?Weakness?denies.?Skin:?Dry skin?denies.?Itching?denies.?Denies?Mole(s),? changes in moles, new moles or any lesions of concern.?Denies?Photosensitivity.?Rash?denies.?Neurologic:?Dizziness?denies.?Fainting?denies.?Headache?denies.? * Medical History:? * Surgical History:? * Hospitalization/Major Diagno stic Procedure:? * Family History:?Father: dashawn vega 73 yrs, diagnosed with Hypertension.?Mother: alive 77 yrs.?1 brother(s) , 1 sister(s) - healthy. 1 daughter(s) - healthy. .? Denies mental health/substance abuse family history, Denies mental health/substance abuse family history, No pertinent family medical history, Denies mental health/substance abuse family history. * Social History:?Tobacco Use:?Tobacco Use/Smoking?Patient is a?former smoker,?How long has it been since you last smoked??1-5 years,?Additional Findings: Tobacco Non-User?Former smoker, currently using no form of tobacco.?Drugs/Alcohol:?Alcohol Screen?Did you have a drink containing alcohol in the past year??Yes,?How often did you have a drink containing alcohol in the past year??2 to 4 times a month (2 points),?How many drinks did you have on a typical day when you were drinking in the past year??1 or 2 drinks (0 point),?How often did you have 6 or more drinks on one occasion in the past year??Never (0 point),?Points?2,?Interpretation?Negative.?Miscellaneous:?Caffeine: yes, frequency:, 2-3 cups per day. Children: yes. Exercise: yes, walking 3-4 lorenza 2 times a week. Home smoke detector use: yes. Housing: owning. Living with: spouse. Marital status: . Occupation: weeks/months/years, works full-time. Pets: cats: dogs:1 cat. Travel outside of the [place]: yes, [place]. * Medications:?TakingOmeprazol e 20 MG Capsule Delayed Release 1 capsule [...] reviewed and reconciled with the patient * Allergies:?Amoxicillin: anap hylaxisPenicillin G SodiumCephalexinyes[Allergies Verified] Objective: * Vitals:?Ht: 64, Wt: 208, BMI :35.7, BP:132/80, Wt-k.35. weight is up 3 pounds since 03-31-24. * ???Past Orders: ???Lab:Complete Blood Count Auto Diff (Order Date - 10/18/2024) (Collection Date & Time - 10/18/2024 07:15 AM) ? Value Reference Range ?White Blood Count 7.3 4. 8-10.8 - X10*3/uL ?Red Blood Count 5.20 4.20 -5.50 - X10*6/uL ?Hemoglobin 14.1 12.0-16.0 - g/dl ?Hematocrit 44.9 37.0-47.0 - % ?Mean Corpuscular Volume 86.3 80.0-98.0 - fL ?Mean Corpuscular Hemoglobin 27.1 27.0-33.0 - pg ?Mean Corpuscular HGB Conc 31.4 31.0-35.0 - g/dl ?Red Cell Distributio n Width 14.5 11.0-16.0 - % ?Platelet Count 250 160-4 00 - X10*3/uL ?Mean Platelet Volume 12.5 H 9.4-12.3 - fL ?Neutrophils Percent Auto 53.4 45-73 - % ?Imm Gran Pct Auto 0.5 H 0. 0-0.4 - % ?Lymphocytes Percent Auto 30.8 20-40 - % ?Monocytes Percent Auto 7.4 2-11 - % ?Eosinophils Percent Auto 7.1 H 0-4 - % ?Basophils Percent Auto 0.8 0-2 - % ?NRBC Pct Auto 0.0 0.0-0. 2 - /100WBC ?Neutrophils Absolute Auto 3.9 2.0-8.3 - x10*3/uL ?Imm Gran Abs Auto 0.04 H 0. 00-0.03 - X10*3/uL ?Lymphocytes Absolute Auto 2.3 1.2-4.9 - X10*3/uL ?Monocytes Absolute Auto 0.5 0.1-1.2 - X10*3/uL ?Eosinophils Absolute Auto 0.5 H 0.0-0.4 - X10*3/uL ?Basophils Absolute Auto 0.1 0.0-0.2 - X10*3/uL ?NRBC Abs Auto 0.000 0.0-0. 012 - X10*3/uL ???Lab:Comprehensive [place]. [place] Fast (Order Date - 10/18/2024) (Collection Date & Time - 10/18/2024 07:15 AM) ? Value Reference Range ?Sodium 144 135-145 - mmo l/L ?Bilirubin Total 0.3 0.0- 1.0 - mg/dL ?Aspartate Amino Transferase 23 5-31 - U/L ?Alanine Aminotransferase 24 0-31 - U/L ?Total Protein 7.4 6.5-8. 0 - g/dL ?Albumin Level 4.0 3.5-5. 0 - g/dL ?Alkaline Phosphatase 77 39-117 - U/L ?Potassium 3.9 3.3-5.1 - mmol/L ?Chloride 112 H 96-108 - mm ol/L ?Carbon Dioxide 26 22-29 - mmol/L ?Anion Gap 10 L 12-20 - ?Blood Urea Nitrogen 15 9-16 - mg/dL ?Creatinine 0.81 0.5-1.4 - mg/dL ?Estimated Glomerular Filt Rate > 60 - ?Glucose Fasting 114 H 60-9 9 - mg/dL ?Calcium 9.2 8.4-10.2 - m g/dL ???Lab:Lipid Panel (Order Da te - 10/18/2024) (Collection Date & Time - 10/18/2024 07:15 AM) ? Value Reference Range ?Triglycerides 266 H <150 - mg/dL ?Cholesterol 195 <200 - m g/dL ?LDL Cholesterol Calculated 88 <100 - mg/dL ?HDL Cholesterol 54 >40 - mg/dL ???Lab:UA ClnCatch+Micro w/r flx Cult (Order 10/18/2024) (Collection Date & Time - 10/18/2024 07:15 AM) ? Value Reference Range ?Color Urine Yellow - ?Appearance Urine Clear - ?PH 5.5 5.0-9.0 - ?Glucose Urine UA Negative Neg ative - mg/dL ?Urine Blood Negative Negative - ?Specific [place] - Urine 1.020 1.005-1.025 - ?Urine Protein Negative Neg-Tr april - mg/dL ?Urine Ketones Negative Negati ve - mg/dL ?Nitrite Urine Negative Negati ve - ?Leukocyte Esterase Urine Moderate (2+) A Negative - ?RBC Urine 0-2 0-2 - /HPF ?WBC Urine 6-10 A 0-5 - /HPF ?Squamous Epithelial Cell Urine 3-5 0-2 - /HPF ?Bacteria Urine None Seen None Seen - ?Hyaline Casts Urine 3-5 0-2 - /LPF ???Lab:Urine Culture (Order Date - 10/18/2024) (Collection Date & Time - 10/18/2024) ? Value Reference Range ?Urine Culture < 10,000 cfu/ml - * Examination: ???General Examination: ?GENERAL APPEARANCE:?well developed, well nourished, in no acute distress.?HEAD:?normocephalic, atraumatic.?EYES:?pupils equal, round, reactive to light and accommodation, sclera non-icteric.?EARS:?normal.?ORAL CAVITY:?mucosa moist.?THROAT:?clear.?NECK/THYROID:?neck supple, full range of motion, no cervical lymphadenopathy, no bruits.?SKIN:?warm and dry, no suspicious lesions.?HEART:?regular rate and rhythm, S1, S2 normal, no murmurs.?LUNGS:?clear to auscultation bilaterally.?BREASTS:?No mass, no lump.?ABDOMEN:?soft, nontender, nondistended, bowel sounds present, normal, no organomegaly , no masses palpable.?RECTAL EXAM:?done by grain oilseed or pasture grower.?FEMALE GENITOURINARY:?done by grain oilseed or pasture grower.?EXTREMITIES:?no clubbing, cyanosis, or edema.?NEUROLOGIC:?nonfocal, motor strength normal upper and lower extremities, sensory exam intact.? Assessment: * Assessment: 1.?Annual physical exam - Z0 0.00 (Primary)???2.?Seasonal allergic rhinitis due to pollen - J30.1???3.?Pure hypercholesterolemia - E78.00???4.?Panlobular emphysema - J43.1???5.?Depression screening - Z13.31??? Plan: * Treatment: 2.?Seasonal allergic rhiniti s due to pollen? Notes: is going to see dr burk?? 3.?Pure hypercholesterolemia ? Continue Rosuvastatin Calcium Tablet, 40 MG, take 1 tablet by mouth daily, Orally, Once a day.?? Notes: stable, will contiue current regiment?? 4.?Panlobular emphysema? Continue Trelegy Ellipta Aerosol Powder Breath Activated, 200-62.5-25 MCG/INH, 1 puff, Inhalation, Once a day.?? Notes: stable, will contiue current regiment?? 5.?Depression screening? Notes: negative screen?? * Procedure Codes:? * Follow Up:?6 Months * * Sign off status: Completed true * Provider:?Daniel Bragg MD Date:?0 10/25/2024 Generated for Steve ramírez/Sisi/Hardikitting on:?11/14/2024 05:24 PM EDT History and Physical Notes * [...] patient have a vision impairmen t?: Yes ?If yes, what is the vision impairment?: Glasses Does the patient have a cognition impair ment?: No Examination Category Sub-Category Detail Notes Category Not es General Examination GENERAL APPEARANCE: well dev eloped, well nourished, in no acute distress HEAD: normocephalic, atrau matic EYES: pupils equal, round, reactive to light and accommodation, sclera non- icteric EARS: normal THROAT: clear NECK/THYROID: neck supple, [...] mass, no lump RECTAL EXAM: done by grain oilseed or pasture grower FEMALE GENITOURINARY: done by grain oilseed or pasture grower ORAL CAVITY: mucosa moist
--- OUTSIDE RECORDS SUMMARY | 2024-11-14 17:25 | XMS_ITS | Patient Health Record ---
Author Organization Daniel Bragg MD Address [address] [place], [place] [id number] Care Team Providers Care Application Support Developer Name Role Phone Daniel Bragg Primary Care Provider Allergies Allergen (clinical drug ingredient) Drug/Non Drug Allergy documented on EMR Reaction Allergy Type Onset Date Status penicillin G Penicillin G Sodium Unknown Drug Allergy Active cephalexin Cephalexin Unknown Drug Allergy Activ e amoxicillin Amoxicillin anaphylaxis Drug Allergy A ctive Results Component Value Reference Range Notes Liver Panel Reviewed date:03/24/2024 12:32:14 PM Interpretation: Performing Lab:[facility], [address] [place] [phone] Notes/Report: Bilirubin Total 0.4 0.0-1.0 mg/dL Bilirubin Direct 0.2 0.0-0.5 mg/dL Aspartate Amino Transferase 21 5-31 U/L Alanine Aminotransferase 18 0-31 U/L Total Protein 7.4 6.5-8.0 g/dL Albumin Level 4.3 3.5-5.0 g/dL Alkaline Phosphatase 72 39-117 U/L Lipid Panel with Reflex Reviewed date:03/24/2024 12:36:31 PM Interpretation: Performing Lab:[facility], [address] [place] [phone] Notes/Report: Triglycerides 95 <150 mg/dL Desirable Triglyceride: less than 150 mg/dL Borderline High Triglyceride 150-199 mg/dL High Triglyceride: 200-499 mg/dL Very High Triglyceride: greater than or equal to 5OO mg/dL Cholesterol 198 <200 mg/dL Desirable Cholesterol: less than 200 mg/dL Borderline High Cholesterol: 200-239 mg/dL High Cholesterol: greater than 239 mg/dL LDL Cholesterol Calculated 123 <100 mg/dL Desirable LDL: less than 100 mg/dL Near Optimal/Above Optimal LDL: 110-129 mg/dL Borderline High LDL: 130-159 mg/dL High LDL: 160-189 mg/dL Very High LDL: greater than or equal to 190 mg/dL HDL Cholesterol 56 >40 mg/dL Desirable HDL: greater than 40 mg/dL Note: This HDL assay may give artificially low results in patients with liver disease. Liver Panel Reviewed date:06/21/2024 08:13:23 PM Interpretation: Performing Lab:[facility], [address] [place] [phone] Notes/Report: Bilirubin Total 0.3 0.0-1.0 mg/dL Bilirubin Direct 0.2 0.0-0.5 mg/dL Aspartate Amino Transferase 23 5-31 U/L Alanine Aminotransferase 24 0-31 U/L Total Protein 7.0 6.5-8.0 g/dL Albumin Level 4.1 3.5-5.0 g/dL Alkaline Phosphatase 71 39-117 U/L Lipid Panel with Reflex Reviewed date:06/21/2024 08:13:15 PM Interpretation: Performing Lab:[facility], [address] [place] [phone] Notes/Report: Triglycerides 123 <150 mg/dL Desirable Triglyceride: [...] low results in patients with liver disease. Complete Blood Count Auto Di ff Reviewed date:10/18/2024 12:20:03 PM Interpretation: Performing Lab:[facility], [address] [place] [phone] Notes/Report: White Blood Count 7.3 4.8-10.8 X10*3/uL [...] 0.0-0.2 /100WBC Neutrophils Absolute Auto 3.9 2.0-8.3 x10*3/uL Imm Gran Abs Auto 0.04 0.00-0.03 X10*3/uL Lymphocytes Absolute Auto 2.3 1.2-4.9 X10*3/uL Monocytes Absolute Auto 0.5 0.1-1.2 X10*3/uL Eosinophils Absolute Auto 0.5 0.0-0.4 X10*3/uL Basophils Absolute Auto 0.1 0.0-0.2 X10*3/uL NRBC Abs Auto 0.000 0.0-0.012 X10*3/uL Comprehensive [place]. Panel Fa st Reviewed date:10/18/2024 12:43:14 PM Interpretation: Performing Lab:[facility], [address] [place] [phone] Notes/Report: Sodium 144 135-145 mmol/L Potassium 3.9 [...] Panel Reviewed date:10/18/2024 12:09:21 PM Interpretation: Performing Lab:[facility], [address] [place] [phone] Notes/Report: Triglycerides 266 <150 mg/dL Desirable Triglyceride: [...] t Reviewed date:10/18/2024 12:20:56 PM Interpretation: Performing Lab:[facility], [address] [place] [phone] Notes/Report: Urine, Clean Catch Color Urine Yellow Appearance Urine Clear PH 5.5 5.0-9.0 Glucose Urine UA Negative Negative mg/dL Urine Blood Negative Negative Specific Onaway - Urine 1.020 1.005-1.025 Urine Protein Negative Neg-Trace mg/dL Urine Ketones Negative Negative mg/dL Nitrite Urine Negative Negative Leukocyte Esterase Urine Moderate (2+) Negative RBC Urine 0-2 0-2 /HPF WBC Urine 6-10 0-5 /HPF Squamous Epithelial Cell Urine 3-5 0-2 /HPF Bacteria Urine None Seen None Seen Hyaline Casts Urine 3-5 0-2 /LPF Complete Blood Count Auto Di ff Reviewed date:12/16/2023 01:03:14 PM Interpretation: Performing Lab:[facility], [address] [place] [phone] Notes/Report: White Blood Count 7.7 4.8-10.8 X10*3/uL Red Blood Count 4.94 4.20-5.50 X10*6/uL Hemoglobin 13.9 12.0-16.0 g/dl Hematocrit 41.8 37.0-47.0 % Mean Corpuscular Volume 84.6 80.0-98.0 fL Mean Corpuscular Hemoglobin 28.1 27.0-33.0 pg Mean Corpuscular HGB Conc 33.3 31.0-35.0 g/dl Red Cell Distribution Width 13.9 11.0-16.0 % Platelet Count 243 160-400 X10*3/uL Mean Platelet Volume 12.0 9.4-12.3 fL Neutrophils Percent Auto 60.9 45-73 % Imm Gran Pct Auto 0.3 0.0-0.4 % Lymphocytes Percent Auto 25.9 20-40 % Monocytes Percent Auto 8.0 2-11 % Eosinophils Percent Auto 4.1 0-4 % Basophils Percent Auto 0.8 0-2 % NRBC Pct Auto 0.0 0.0-0.2 /100WBC Neutrophils Absolute Auto 4.7 2.0-8.3 x10*3/uL Imm Gran Abs Auto 0.02 0.00-0.03 X10*3/uL Lymphocytes Absolute Auto 2.0 1.2-4.9 X10*3/uL Monocytes Absolute Auto 0.6 0.1-1.2 X10*3/uL Eosinophils Absolute Auto 0.3 0.0-0.4 X10*3/uL Basophils Absolute Auto 0.1 0.0-0.2 X10*3/uL NRBC Abs Auto 0.000 0.0-0.012 X10*3/uL Erythrocyte Sedimentation Ra te Reviewed date:12/16/2023 01:07:56 PM Interpretation: Performing Lab:[facility], [address] [place] [phone] Notes/Report: Erythrocyte Sedimentation Rate 6 0-20 MM/HR Patients with polycythemia and many hemoglobin abnormalities may have depressed sed rates whereas patients with anemia may have elevated sed rates. Immunoglobulin E Reviewed date:12/17/2023 12:51:33 PM Interpretation: Performing Lab:[facility], [address] [place] [phone] Notes/Report: Immunoglobulin E 383 <OA=021 kU/L Resp Allergy Profile Region I Reviewed date:12/17/2023 01:02:25 PM Interpretation: Performing Lab:[facility], [address] [place] [phone] Notes/Report: I053-VmS Mouse Urine <0.10 Class Mouse Urine Protein 0 A480-RiP Cockroach, Tamazight <0.10 Class Cockroach 0 D002 - IgE D farinae 2.43 Class Dermatophagoides farinae 2 E001 - IgE Cat Dander 49.20 Class Cat Dander 4 THIS TEST WAS PERFORMED AT: [email or web address] [address] [place] [phone] FERCHO NEIL MD E005 - IgE Dog Dander 4.11 Class Dog Dander 3 THIS TEST WAS PERFORMED AT: [email or web address] [address] [place] [phone] FERCHO NEIL MD G006 - IgE Bertin Grass 2.95 Class Bertin Grass 2 M002 - IgE Cladosporium herbar <0.10 Class Cladosporium herbarum 0 M003 - IgE Aspergillus fumigat <0.10 Class Aspergillus fumigatus 0 M006 - IgE Alternaria alternat <0.10 Class Alternaria alternata 0 THIS TEST WAS PERFORMED AT: [facility] [address] [phone] FERCHO NEIL MD T006 - IgE Milan, Mountain <0.10 Class Mountain Milan 0 T007 - IgE Holmen, White 1.18 Class Holmen 2 T010 - IgE Atkinson <0.10 Class Atkinson Tree 0 T011 - IgE Maple Modjeska Joffre <0.10 Class Joffre 0 T014 - IgE Henrico <0.10 Class Henrico 0 T015 - IgE Elias, White <0.10 Class White Elias 0 T070 - IgE White Venice <0.10 Class White [place] 0 W001 - IgE Ragweed, Short 4.30 Class Common Ragweed 3 W006 - IgE Mugwort <0.10 Class Mugwort 0 D001 IgE D pteronyssinus 2.08 Class Derm. pterony 2 G002 IgE Bermuda Grass 0.54 Class Bermuda Grass 1 M001 IgE Penicillium chrysogen <0.10 Class Penicillium crysogenum 0 T003 IgE Common Silver Birch 2.07 Class Birch 2 T008 IgE Elm, Guinean <0.10 Class Elm 0 T001 IgE Maple/Holbrook <0.10 Class Maple Holbrook 0 W014 IgE Pigweed, Common <0.10 Class Rough Pigweed 0 W018 IgE Sheep Carmi <0.10 Class Sheep Carmi 0 Allergen Comment See Below Specific Level of Allergen IGE Class kU/L Specific IGE Antibody ----- --------- 0 <0.10 Absent/Undetectable 0/1 0.10-0.34 Very Low Level 1 0.35-0.69 Low Level 2 0.70-3.49 Moderate Level 3 3.50-17.4 High Level 4 17.5-49.9 Very High Level 5 50-100 Very High Level 6 >100 Very High Level The clinical relevance of allergen results of 0.10-0.34 kU/L are undetermined and intended for specialist use. Allergens denoted with a include results using one or more analyte specific reagents. In those cases, the test was developed and its analytical performance characteristics have been determined by [employer]. It has not been cleared or approved by the U.S. Food and Drug Administration. This assay has been validated pursuant to the CLIA regulations and is used for clinical purposes. THIS TEST WAS PERFORMED AT: [email or web address] [address] [place] [phone] FERCHO NEIL MD Hold Gold Reviewed date:03/24/2024 12:33:06 PM Interpretation: Performing Lab:[facility], [address] [place] [phone] Notes/Report: Raudel Gold See Note Specimen held untested for 24 hours; Call to request Chemistry testing. CT lung screening Reviewed date:04/12/2024 08:31:45 AM Interpretation: Performing Lab: Notes/Report: [address] [address] [address] Scan Report Signed Patient: Samira Moreira MR#: [id number] 00 : 1970 Acct:[id number] Age/Sex: 53 / F ADM Date: 03/28/24 Loc: HO.CT Attending Dr: Skye Bañuelos PA-C Ordering Physician: Skye Bañuelos PA-C Date of Service: 03/28/24 Procedure(s): CT lung screening Accession Number(s): [id number] cc: Daniel Bragg MD; Skye Bañuelos PA-C EXAMINATION: CT CHEST LOW-DOSE SCREENING WITHOUT CONTRAST CLINICAL INFORMATION: Asymptomatic patient meeting criteria for lung screening. Nicotine dependence. Patient is a former smoker who quit 4 years ago, 1 pack per-day for 30 years. PATIENT PACK-YEAR HISTORY: 1 pack per-day for 30 years. Current Smoker: No. If former smoker, years since quittin. COMPARISON: CT lung screening 03/27/2023. TECHNIQUE: Multidetector volumetric non-contrast CT imaging of the chest was obtained on a Siemens Somaton Definition scanner using low-dose screening CT technique. Axial thin section 0.625 mm reformations in soft tissue and lung windows were obtained. Sagittal and coronal reformations were obtained. Axial MIP images were also created and reviewed. RECONSTRUCTED WIDTH: 1.25 mm x 1.[address] examination was performed using dose optimization techniques as appropriate, variously including the following: *Automated exposure control. *Adjustment of mA and/or kV according to patient size (this includes techniques or standardized protocols for targeted exams where dose is matched to indication/reason for exam; i.e. extremities or head). *Use of iterative reconstruction technique. TOTAL EXAM DLP: 57 mGy-cm CTDIvol: 1.81 mGy FINDINGS: LUNGS: Lungs bilaterally symmetrically expanded. Mild bibasilar scarring is present. There is mild diffuse emphysema. A punctate right upper lobe granuloma is again seen (5:97). A small left lower lobe perifissural lymph node is unchanged (5:220 compare prior 4:229). No new, increasing-sized or suspicious focal lung nodule or mass. No effusion or pneumothorax. Central airways patent. LYMPHATIC STRUCTURES: Mild increased soft tissue density in the mediastinum consistent with residual thymus, unchanged. No mediastinal, hilar or axillary adenopathy or free fluid collection. THYROID GLAND: Unremarkable to the extent seen. CARDIOVASCULAR STRUCTURES: Aortic and heart size normal. No significant coronary artery calcifications. No pericardial effusion. UPPER ABDOMEN: Included portions of the solid organs in the upper abdomen unremarkable on noncontrast imaging. OSSEOUS STRUCTURES: No suspicious focal findings. SPINAL COMPRESSION: Absent. CT/CT lung screening IMPRESSION: No findings suspicious for malignancy/pulmonary nodule(s)/other. LUNG-RADS CATEGORY ASSESSMENT: 1: Negative. INCIDENTAL FINDINGS (S CATEGORY): Finding: No incidental findings. Significance Category: Normal or normal variant. RECOMMENDATION: Low dose lung CT. overall in 1 year. Visual estimate of coronary calcified plaque burden: None. However, this exam cannot replace a dedicated cardiac CT calcium score for accurate assessment. Electronically signed by: Ed Lee MD 04/10/2024 09:21 PM EDT Dictated By: Ed Lee MD Signed By: <Electronically signed by Ed Lee MD in OV> 04/10/241 DD/ 1608 TD/TT: 03/28/24 1616 [employer] Driver: [address] [address] [address] Scan Report Signed Patient: Nadia Moreira MR#: [id number] 00 : 1970 Acct:[id number] Age/Sex: 53 / F ADM Date: 03/28/24 Loc: HO.CT Attending Dr: Skye Bañuelos PA-C Ordering Physician: Skye Bañuelos PA-C Date of Service: 03/28/24 Procedure(s): CT amos g screening Accession Number(s): [id number] cc: Daniel Bragg MD; Skye Bañuelos PA-C EXAMINATION: CT CHEST LOW-DOSE SCREENING WITHOUT CONTRAST CLINICAL INFORMATION: Asymptomatic patient meeting criteria for lung screening. Nicotine dependence. Patient is a former smoker who quit 4 years ago, 1 pack per-day for 30 years. PATIENT PACK-YEAR HI STORY: 1 pack per-day for 30 years. Current Smoker: No. If former smoker, ye ars since quittin. COMPARISON: CT lung screening 03/27/2023. TECHNIQUE: Multidetector volume tric non-contrast CT imaging of the chest was obtained on a [employer] Somaton Definition scanner using low-dose screening CT techniq ue. Axial thin section 0.625 mm reformations in soft tissue and lung windows were obtained. Sagittal and coronal reformations were obtained. Axial MIP images were also created and reviewed. RECONSTRUCTED WIDTH: 1.25 mm x 1.[address] examination was performed using dose optimization techniques as appropriate, various ly including the following: *Automated exposure control. *Adjustment of mA an d/or kV according to patient size (this includes techniques or standa rdized protocols for targeted exams where dose is matched to indication/reason for exam; i.e. extremities or head). *Use of iterative reconstruction technique. TOTAL EXAM DLP: 57 mGy-cm CTDIvol: 1.81 mGy FINDINGS: LUNGS: Lungs bilater ally symmetrically expanded. Mild bibasilar scarring is present. There is mild diffuse emphysema. A punctate right upper lobe granuloma is again seen (5:97). A small left lower lobe perifissural lymph n ode is unchanged (5:220 compare prior 4:229). No new, increasing-size d or suspicious focal lung nodule or mass. No effusion or pneumoth orax. Central airways patent. LYMPHATIC STRUCTURES : Mild increased soft tissue density in the mediastinum consiste nt with residual thymus, unchanged. No mediastinal, hilar or axillary adenopathy or free fluid collection. THYROID GLAND: Unremarkable to the extent seen. CARDIOVASCULAR STRUC TURES: Aortic and heart size normal. No significant coronary artery calcifications. No pericardial effusion. UPPER ABDOMEN: Inclu ded portions of the solid organs in the upper abdomen unremarkable on noncontrast imaging. OSSEOUS STRUCTURES: No suspicious focal findings. SPINAL COMPRESSION: Absent. C T/CT lung screening IMPRESSION: No findings suspicio us for malignancy/pulmonary nodule(s)/other. LUNG-RADS CATEGORY ASSESSMENT: 1: Negative. INCIDENTAL FINDINGS (S CATEGORY): Finding: No incident al findings. Significance Categor y: Normal or normal variant. RECOMMENDATION: Low dose lung CT. ov erall in 1 year. Visual estimate of coronary calcified plaque burden: None. However, this exam cannot rep lace a dedicated cardiac CT calcium score for accurate assessment. Electronically gaby d by: Ed Lee MD 04/10/2024 09:21 PM EDT RP Dictated By: Ed Lee MD Signed By: <Electron icajohn signed by Ed Lee MD in OV> 04/10/241 DD/ 1608 TD/TT: 03/28/24 1616 [employer] Driver: KELLY Pathology Reviewed date:06/20/2024 04:52:39 PM Interpretation: Performing Lab:[facility], [address] [place] [phone] Notes/Report: ------ Name: Samira Moreira Age/Sex: 53/F : 1970 Unit#: [id number] Attend Dr: Luma Diaz MD Re06/16/24 Status : DEP SDC Location: HO.SSS Disch: ------ SPEC : [id number] RECD : 06/16/24 STATUS: RENEE PATEL NUM: [id number] CAMPBELL: 06/16/24-[address] [facility] [address]: Luma Diaz MD ENTERED: 06/16/24 43 SP TYPE: Surgical OTHR DR: Daniel Bragg MD ORDERED: HE Stain/ , Gross Micro L4/8, Congo red/8, IHC/9, Special st. 2/10, H. pylori, CD117/8, AB/PAS/2 Diagnosis A. Duodenum, biopsy: Duodenal mucosa with preserved villous architecture and increased intraepithelial lymphocytes (see comment). B. Stomach, biopsy: Gastric antral and body mucosa with mild chronic inactive gastritis; negative for Helicobacter pylori, intestinal metaplasia and dysplasia. C. Stomach, polyp, b iopsy: Fundic gland polyp. D. Esophagus, distal , biopsy: Squamous mucosa within normal limits; negative for inflammation (includ ing intraepithelial eosinophils), fungal organisms, intestinal metaplasia and dysplasia. E. Terminal ileum, b iopsy: Ileal mucosa within normal limits; negative for active or chronic ileitis. F. Colon, right side , biopsy: Colonic mucosa with increased lamina propria eosinophils and focally intraepithelial eosinophils (see comment). G. Colon, left side, biopsy: Colonic mucosa with increased lamina propria eosinophils, focally intraepithel ial eosinophils and scattered Paneth cell metaplasia (see comment). H. Rectum, biopsy: F ocal active colitis with increased lamina propria eosinophils and focally intraepithel ial eosinophils (see comment). COMMENT (A): These findings raise the possibility of celiac disease; however other pathologic processes , ?including H. pylori gastritis, peptic duodenitis, food allergies other than celiac di sease, tropical sprue, viral enteritis, injury caused by drugs, autoimmune enteropat hy, immunodeficiencies and Crohn's disease can induce intraepithelial lymphocytosis with o r without associated architectural changes. In many cases no definite cause is identified. Clinical and serological correlation is recommended. COMMENT (F, G, H): Biopsies from the right and left colon show increased lamina propria and focally intraepithelial eosinophils. Although a non-specific finding, increased eosinophils could be associated with a drug-induced or allergic colitis and certain infections. Clinical correlation is advised. The presence of Paneth cells in part G may likely represent chr onic regenerative change. CONTINUED ON NEXT PAGE ------ Name: Samira Moreira Age/Sex: 53/F : 1970 Unit#: [id number] Attend Dr: Lmua Diaz MD Re06/16/24 Status : [facility] Location: [facility] Disch: ------ SPEC : [id number] RECD : 06/16/241233 STATUS: RENEE PATEL NUM: [id number] CAMPBELL: 06/16/24-[address] [facility] [address]: Luma Diaz MD ENTERED: 06/16/24-12 43 SP TYPE: Surgical OTHR DR: Daniel Bragg MD ORDERED: HE Stain/ , Gross Micro L4/8, Congo red/8, IHC/9, Special st. 2/10, H. pylori, CD117/8, AB/PAS/2 Clinical History Pre-Op Dx: GERD with out esophagitis Post-Op Dx: Gastric polyp, mild erosive ileitis, internal hemorrhoids Microscopic Description A-H. Microscopic sec tions reviewed. The immunohistochemical stain for Congo Red is negative in parts A-H. CD117 Immunohistoche clarence (# cells per high powered field): A. Duodenum (30 mast cells per high power field) B. Stomach (12 mast cells per high power field) C. Gastric polyp (22 mast cells per high power field) D. Esophagus (6 mast cells per high power field) E. Terminal ileum (4 3 mast cells per high power field) F. Colon, right (20 mast cells per high power field) G. Colon, left (14 m ast cells per high power field) H. Rectum (No mast c ells identified) GI tract involvement by systemic mastocytosis is characterized by aggregates of atypical appearing mast cells , which are often oval or spindle-shaped - features not seen in the current specimens. I n reactive processes, mast cells are not atypical appearing and occur singly (as in this c ase). In one study (Winston et al. PMID [id number]), the number of mast cells per high-power ed field in IBS patients with diarrhea was elevated compared to asymptomatic patient s (30 per high-powered field for IBS; 26 per high-powered field for asymptomatic patient s in colon biopsies; statistically significant). Mast cell density in other areas of the G I tract is not well characterized. There are myriad other causes of elevated mast cells in GI mucosa, including allergies, celiac disease, malignancies, infections and drugs , among other etiologies (Cj, carlosl. PMID [id number]). Correlation with the patient's clinical presentation and other laboratory studies is necessary. Material Received A. Duodenum bx's (St ain for amyloid, mast cells) B. Stomach (Stain fo r amyloid, mast cells) C. Gastric polyp (St ain for amyloid, mast cells) D. Distal esophagus (Stain for amyloid, mast cells) E. Terminal ileum bx 's (Stain for amyloid, mast cells) F. Right side colon bx's (Stain for amyloid, mast cells) G. Left side colon b x's (Stain for amyloid, mast cells) H. Rectal bx's (Stai n for amyloid, mast cells) CONTINUED ON NEXT PAGE ------ Name: Samira Moreira Age/Sex: 53/F : 1970 Unit#: [id number] Attend Dr: Luma Diaz MD Re06/16/24 Status : [facility] Location: [facility] Disch: ------ SPEC : [id number] RECD : 06/16/24-1233 STATUS: CHRISTIANMonica PATEL NUM: [id number] CAMPBELL: 06/16/24-[address] [facility] [address]: Luma Diaz MD ENTERED: 06/16/24-12 43 SP TYPE: Surgical OTHR DR: Daniel Bragg MD ORDERED: HE Stain/21 , Gross Micro L4/8, Congo red/8, IHC/9, Special st. 2/10, H. pylori, CD117/8, AB/PAS/2 Gross Description Received in eight parts. Part A: Received in formalin labeled ?duodenum bx's? are 3 sanchez-pink irregular tissue fragments ranging fr om 0.25-0.3 cm, submitted in toto in a cassette labeled A. Part B: Received in formalin labeled ?stomach? are 3 sanchez-pink irregular tissue fragments ranging from 0.1 to 0.2 cm, submitted in toto in a cassette labeled B. Part C: Received in formalin labeled ?gastric polyp? are 2 sanchez-pink irregular tissue fragments each measu ring 0.3 cm, submitted in toto in a cassette labeled C. Part D: Received in formalin labeled ?distal esophagus? are 4 pale, mojica-white irregular and rectangular tiss ue fragments ranging from minute to 0.25 cm, submitted in toto in a cassette labeled D. Part E: Received in formalin labeled ?terminal ileum bx's? are 2 sanchez-pink irregular tissue fragments measuring 0.15 and 0.25 cm, submitted in toto in a cassette labeled E. Part F: Received in formalin labeled ?right side colon bx's? are 3 sanchez and sanchez-pink irregular tissue fra gments ranging from 0.15-0.2 cm, submitted in toto in a cassette labeled F. Part G: Received in formalin labeled ?left side colon bx's? are 5 sanchez-pink irregular tissue fragments each measu ring 0.1 cm, submitted in toto in a cassette labeled G. Part H: Received in formalin labeled ?rectal bx's? are 4 sanchez-pink irregular tissue fragments ranging fr om 0.1-0.2 cm, submitted in toto in a cassette labeled H. CEDS Special stains order ed and performed: AB/PAS on A and C; immunostain for H. pylori on B; Congo Red and CD117 on A-H. Copies To: Daniel Bragg MD [facility] [address] [place] [id number] CONTINUED ON NEXT PAGE ------ Name: Samira Moreira Age/Sex: 53/F : 1970 Unit#: [id number] Attend Dr: Luma Diaz MD Re06/16/24 Status : [facility] Location: [facility] Disch: ------ SPEC : [id number] RECD : 06/16/24 STATUS: RENEE PATEL NUM: [id number] CAMPBELL: 06/16/[address] [facility] [address]: Luma Diaz MD ENTERED: 06/16/2412 43 SP TYPE: Surgical OTHR DR: Daniel Bragg MD ORDERED: HE Stain/ , Gross Micro L4/8, Congo red/8, IHC/9, Special st. 2/, H. pylori, CD117/8, AB/PAS/2 Copies To: (Continued) Luma Diaz MD [facility] [address] [place] [id number] ------ Signed (signature on file) Daisha Oconnor MD 06/20/24 1325 ------ END OF REPORT Raudel Tan Reviewed date:06/21/2024 08:13:07 PM Interpretation: Performing Lab:[facility], [address] [place] [phone] Notes/Report: Raudel Tan See Note Specimen held untested for 24 hours; Call to request Chemistry testing. Urine Culture Reviewed date:10/19/2024 03:25:34 PM Interpretation: Performing Lab:[facility], [address] [place] [address], [place] [address] Notes/Report: Urine Culture Report Result Urine Culture < 10,000 cfu/ml Reason For Referral No Information Medications Medication SIG (Take, Route, Frequency, Duration) Notes Start Date End Date Status Ocuflox 0.3 % 2 drops in affected eye Ophthalmic 4 times a day for 7 days 10/31/2024 Active Singulair 10 MG 1 tablet Orally Once a day for 30 day(s) Not-Taking Ibuprofen 800 MG 1 tablet Orally Thre e times a day for 30 day(s) 09/28/2012 Not-Taking Albuterol Sulfate HFA 108 (90 Base) MCG/ACT 2 puffs as needed Inhalation every 4 hrs Not-Takin g Trelegy Ellipta 200-62.5-25 MCG/INH 1 puff Inhalation Once a day Active ZyrTEC Allergy 10 MG 1 tablet Orally Onc e a day Active Omeprazole 20 MG 1 capsule 30 minutes before morning meal Orally Once a day for 30 day(s) Active Rosuvastatin Calcium 40 MG take 1 tablet by mouth daily Orally Once a day Active Dupixent 200 MG/1.14ML as directed Subcutaneous Not-Taking Dupixent 200 MG/1.14ML as directed Subcutaneous Not-Taking Immunizations Vaccine Route Administration Date Status Comme nts TDaP IM Intramuscular 09/28/2012 Administered Flu Vaccine Unknown 05/13/2013 Administered At work. Fluarix Quadrivalent IM Intramuscular 04/27/2014 Adminlinda red PPSV23 (Pnemovax) IM Intramuscular 05/08/2014 Administered Flu Vaccine Unknown 05/16/2015 Administered At work [facility] rachna Cr[employer] Prevnar 13 IM Intramuscular 11/12/2015 Administered Fluarix Quadrivalent Unknown 05/18/2017 Administered At work [employer] Flu Vaccine Unknown 05/14/2018 Administered had at work Fluarix Quadrivalent IM Intramuscular 05/13/2019 Adminlinda crenshaw Pt was given the vaccine at work. PPSV23 (Pnemovax) IM Intramuscular 06/10/2019 Administered Fluarix Quadrivalent Unknown 05/18/2020 Administered Liang d it at work [facility] Fluarix Quadrivalent IM Intramuscular 04/25/2021 Adminlinda crenshaw SARS-COV-2 Pfizer Unknown 12/28/2020 Administered SARS-COV-2 Pfizer Unknown 01/18/2021 Administered Fluarix Quadrivalent IM Intramuscular 05/02/2022 Administe red Fluarix Quadrivalent Unknown 05/02/2021 Others Flu Vaccine Unknown 04/27/2014 Pending Tetanus Unknown 09/28/2012 Pending Social History Tobacco Use: Social History Observation [...] Never (0 point) Points 2 Interpretation Negative Section Notes: currently on chantix currently on chantix Chantix did not work using Nicoderm Patch 21mg. Last cigarette 02-17-16. currently on chantix Chantix did not work using Nicoderm Patch 21mg. Last cigarette 02-17-16. 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) Active confirmed Problem 0337508 Panlobular emphy sema (J43.1) Active confirmed Problem 919597625 Body mass index (BMI) 34.0-34.9, adult (Z68.34) Active confirmed Problem 6898878 Arthritis (M19.90) Active confirmed Problem 957908827 Abnormal mammogr am of left breast (R92.8) Active confirmed Problem 716443939 Drug allergy (Z88.9) Active confirmed Problem 269703549 Pure hypercholesterolemia, unspecified (E78.00) Active confirmed Problem 144718651 Pure hypercholesterolemia (E78.00) Active confirmed Problem 61906226 Seasonal allergi c rhinitis due to pollen (J30.1) Active confirmed Problem 021243623 Body mass index (BMI) of 33.0-33.9 in adult (Z68.33) Active confirmed Problem Solitary pulmonary nodule (008506052) Incidental lung nodule (R91.1) Active confirmed Problem 92736372 Hyperplastic deng yp of ascending colon (K63.5) Active confirmed Problem 192586367 Elevated serum cholesterol (E78.9) Active confirmed Vital Signs Blood pressure diastolic 80 mm Hg 10/25/2024 marlen ght is up 3 pounds since 03-31-24 Height 64 in 10/25/2024 weight is up 3 pounds since 03-31-24 Blood pressure systolic 132 mm Hg 10/25/2024 weig ht is up 3 pounds since 03-31-24 Weight 208 lbs 10/25/2024 weight is up 3 pounds since 03-31-24 BMI 35.7 kg/m2 10/25/2024 weight is up 3 pounds since 03-31-24 Procedures Procedure Date Ordered Date Performed Result Body Sit e Colonoscopy, Screening 06/16/2024 06/16/2024 Colonoscopy r epeat 5y Encounters Encounter Location Date Provider Diagnosis Daniel Bragg MD [address] [place] [address] [id number] 03/24/2024 Daniel Bragg Pure hypercholestero lemia E78.0 and Pure hypercholesterolemia, unspecified E78.00 Daniel Bragg MD [address] [place] [address] [id number] 06/21/2024 Daniel Bragg Pure hypercholestero lemia E78.00 Daniel Bragg MD [address] [place] [address] [id number] 10/18/2024 Daniel Bragg Blood tests for rout ine general physical examination Z00.00 and Pure hypercholesterolemia E78.00 Daniel Bragg MD [address] [place] [address] [id number] 03/31/2024 Daniel Bragg Panlobular emphysema J43.1 and Pure hypercholesterolemia E78.00 Daniel Bragg MD [address] [place] [address] [id number] 10/25/2024 Daniel Bragg Annual physical exam Z00.00 ; Seasonal allergic rhinitis due to pollen J30.1 ; Pure hypercholesterolemia E78.00 ; Panlobular emphysema J43.1 and Depression screening Z13.31 Daniel Bragg MD [address] [place] [address] [id number] 11/17/2023 Daniel Bragg MD [address] [place] [address] [id number] 03/31/2024 Daniel Bragg MD [address] [place] [address] [id number] 10/31/2024 Daniel Bragg Assessments Encounter Date Diagnosis (ICD Code) Assessment Notes Treatment Notes Treatment Clinical Notes Section Notes 03/24/2024 Pure hypercholesterolemia (ICD-10 - E78.0) 03/24/2024 Pure hypercholesterolemia, unspecified (ICD-10 - E78.00) 06/21/2024 Pure hypercholesterolemia (ICD-10 - E78.00) 10/18/[address] ine general physical examination (ICD-10 - Z00.00) 03/31/2024 Panlobular emphysema (ICD-10 - J43.1) need results of cat scan/ will sent request 03/31/2024 Pure hypercholesterolemia (ICD-10 - E78.00) patient verbalized understanding of increase in medication and will follow up with additional labs 10/25/2024 Annual physical exam (ICD-10 - Z00.00) labs reviewed and discussed with patient, is going to work on diet and considring weight loss meds. 10/25/2024 Seasonal allergic rhinitis due to pollen (ICD-10 - J30.1) is going to see dr burk 10/18/2024 Pure hypercholesterolemia (ICD-10 - E78.00) 10/25/2024 Pure hypercholesterolemia (ICD-10 - E78.00) stable, will contiue current regiment 10/25/2024 Panlobular emphysema (ICD-10 - J43.1) stable, will contiue current regiment 10/25/2024 Depression screening (ICD-10 - Z13.31) negative screen Plan Of Treatment Pending Test Test Name Order Date Electrocardiogram (EKG) 08/27/2017 Electrocardiogram (EKG) 09/09/2019 MAMMOGRAM DIGITAL UNILATERAL MAXX LT 10/02 Next Appt Details Provider Name:Daniel Coates ier, 05/04/2025 07:45:00 AM, [address], [address], [place], [place], [id number], Provider Name:Daniel Coates ier, 10/20/2025 07:30:00 AM, [address], [address], [place], [place], [phone], Provider Name:Daniel Coates ier, 10/27/2025 08:30:00 AM, [address], [address], [place], [place], [phone], Insurance Providers Payer Name Payer Address Payer Phone Subscriber Number Group Number Insured Name Patient Relationship to Insured Coverage Start Date Coverage End Date [employer] [facility] [address] [place], [place] [phone] [id number] Samira Moreira Self - patient is the insured 4 Medical (General) History Medical History History ICD Code colonoscopy 07/26/2013 , Col onoscopy and Endoscopy done 07/26/19 repeat 2-3 yearsColonoscopy 06/16/[address] Mclaughlin, PHP ARCHITECT hYSTERECTOMY, 2006
--- OUTSIDE RECORDS SUMMARY | 2024-11-14 17:25 | XMS_ITS ---
Author Organization Daniel Bragg MD Address [address] [place] [phone] Care Team Providers Care Bulk Folder Name Role Phone Daniel Bragg Primary Care Provider REASON FOR VISIT [place] [facility] Medications Medication SIG (Take, Route, Frequency, Duration) Notes Start Date End Date Status Ocuflox 0.3 % 2 drops in affected eye Ophthalmic 4 times a day for 7 days 10/31/2024 Active Encounters Encounter Location Date Provider Diagnosis Daniel Bragg MD [address] [place] [id number] 10/31/2024 Daniel Bragg Plan Of Treatment Medication Medication Name Sig Start Date Stop Date Notes Ocuflox 0.3 % 2 drops in affected eye Ophthalmic 4 times a day for 7 days 10/31/2024 Next Appt Details Provider Name:Daniel montero, 05/04/2025 07:45:00 AM, [address], Suite [facility], [place], [place], [phone], Provider Name:Daniel Coates ier, 10/20/2025 07:30:00 AM, [address], [address], [place], [place], [phone], Provider Name:Daniel Coates ier, 10/27/2025 08:30:00 AM, [address], [address], [place], [place], [phone], Progress Notes * Samira FIGUEROA LDOB: [birth year] (54 yo F)Acc No.[id number]:10/31/2024 Patient:?Samira FIGUEROA L :1970???Age:54 Y???Sex:Female Address:[address] [place] [address] * Refills? Start Ocuflox Solution, 0.3 %, Ophthalmic, 2.8 ML, 2 drops in affected eye, 4 times a day, 7 days * true * Date:? Generated for Steve ramírez/Sisi/eTransmitting on:?11/14/2024 05:24 PM EDT
== END 2024-11-14 14:50 | disposition home or self-care (01) ==
LOC: HO.MAMMO 14:49
PROVIDERS: PCP Internal Medicine; Visit Provider Internal Medicine
DX: Z12.31 Encounter for screening mammogram for malignant neoplasm of breast (principal)
CPT/HCPCS: 77063; 77067

== ENCOUNTER → 2024-11-14 15:00 | Outpatient (BNV) | payer BC, SELFPAY | PROVIDERS: PCP Internal Medicine; Visit Provider Internal Medicine | DX: Z12.31 Encounter for screening mammogram for malignant neoplasm of breast (principal) | CPT/HCPCS: 77063; 77067 ==

== ENCOUNTER 2024-11-24 13:47 | Outpatient (AMB) | payer BC, SELFPAY ==
[2024-11-24 14:18] VITALS: BP 120/77; PULSE 77; O2SAT 97; BMI 38.5
--- NOTE | 2024-11-24 14:18 | A.OFFVIS_ITS ---
Vital Signs 11/24/24 14:18 Height 5 ft 2 in Weight 210 lb 8.663 oz BMI 38.5 BP 120/77 Blood Pressure Location Rt brachial Position Sitting Pulse 77 Pulse Source Pulse Oximeter Pulse Oximetry (%) 97 Oxygen Delivery Method Room Air Intake Visit Reasons: Emphysema Accompanied by: Self / Same As Patient Allergies amoxicillin [AMOXICILLIN] Allergy (Severe, Verified 11/24/24 14:23) ANAPHYLAXIS Latex, Natural Rubber [LATEX, NATURAL RUBBER] Allergy (Unknown, Verified 11/24/24 14:23) rash Penicillins [PENICILLINS] Allergy (Unknown, Verified 11/24/24 14:23) TOLD TO AVOID SEASONAL ALLERGIES Allergy (Intermediate, Uncoded 06/27/24 09:12) ITCHY EYES HPI Comments Details: The patient is a 54-year-old woman with a history of tobacco dependency. Apparently she did have allergy symptoms when she was growing up. Significant allergy history an asthma history in the family. She never required prednisone or hospitalizations for her allergy symptoms. She did not use any inhalers. Subsequently after that she started smoking. She noticed that other people in her family were her being diagnosed with COPD. She mention that the diagnosis of COPD came later in her life. There were also smokers. The patient has been smoking until about 3 years ago when she had a case of anaphylaxis after her taking amoxicillin. During that visit she was brought to the [facility] ED. She responded to epinephrine. The patient also underwent a CT scan of the chest that was personally reviewed by me. It appears that she did have some areas suggestive of emphysema primarily in the mid lung zone area. No significant pulmonary nodules noted. It was also noted the patient has a congenital under developed right kidney. The patient smoked for more 30 years about a pack a day. She is currently 51 years old and I did recommend she start the lung cancer screening program at this time. She is using Advair and then switched over to Wixela. She has been using that for many years. She still having some issues with dyspnea on exertion and feels that she has some chest tightness. She is wondering if she can try any other medication. At this point we can optimize her therapy to start Trelegy and also undergo pulmonary function studies to assess her lung capacity. as far as her allergies he has significant allergies. She was tested by Allergy immunology many years ago and they demonstrated significant allergies although she does not have the current documentation did did recommend she start allergy shots but at that time her insurance was very limited and she did not have the time to invest. 01/27/2022 the patient is here for a pulmonary follow-up visit. Overall the patient has been due well. She has been using the Trelegy. Sometimes she feels she did better on the Advair. I did encourage her to continue the medicine at this time. We did review her pulmonary function studies which were reassuring. Her lung mechanics appears to be within normal limits. In addition to that she did participated in the lung cancer screening program and she did undergo a CT scan of the chest. Has not been formally read yet but I did review with her and appears that she does have multiple pulmonary nodules are subcentimeter in size. She will need to have a repeat CT scan in a year's time. If the final report is different will go ahead and let her know. At this point I do believe the patient will do better on singular just to help her with her allergic component of her obstructive airway disease. Again is reassuring that she does not have any evidence of COPD. 08/08/2022 patient is here for a pulmonary follow-up visit. Overall the patient is doing better. She does continue on the Trelegy 200 mcg. Will be reasonable to decrease it down to 100. at this point she just received a new prescription. therefore, she will call when she is running out in order to sent the lower dose. She has not had to use her rescue inhaler. She also did not have to start the singular. Usually her allergies are worse during the spring time. Therefore she will consider rate starting at 10. we did review her lung cancer screening CT scan. The CT scan is reassuring. 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 She is scheduled to have a repeat CT scan next summer. Will follow-up in a year's time. 08/21/2023 the patient is here for a pulmonary follow-up visit. She does complaint of worsening congested cough. Productive in nature. Difficult to expectorate. The patient has tried her respiratory medications her rescue inhaler with only partial improvement of the symptoms. Also feels she has a component of sinusitis. Denies any fevers or chills. She has tested negative for COVID. We also looked at her last CT scan which was back in March 2023 demonstrating a rads 1 which is very good. The patient is scheduled to have a repeat CT scan in the summer of 2023. will go ahead and continue her respiratory therapy. She is having increasing allergy symptoms. Will try Astelin nasal spray. Also, she does have a history of nasal polyposis. Will go ahead and check her allergy levels to see if she has a candidate for biologic therapy. 12/15/2023 the patient is here for a pulmonary follow-up visit. The patient continues to struggle with her breathing and also nasal congestion. Patient has a history of nasal polyps in addition to significant asthma. She has been using the inhalers in the allergy therapy with her good adherence. Still she is having Daily symptoms requiring rescue inhaler. Feels like nasal polyps getting worse as well. Causing significant blockage of the nasal sinuses. The patient will undergo blood work today. She is already maximized on respiratory therapy. I do believe she will be a good candidate for biologics primarily Dupixent review of the asthma eczema in the nasal polyps will go ahead and request blood work in addition to start process to start the biologic. 04/18/2024 the patient is here for a pulmonary follow-up visit. Overall she is doing a lot better. The Dupixent injections have been very affecting beneficial. She does use it every 2 weeks. Denies any allergic reactions at the site. She is having some irritation of the eyes. Although she states that she has had that even before the injections. She does use his histamine drops to the eyes and they usually sufficient. Therefore she will continue to monitor she knows that the conjunctivitis could be a result of the Dupixent. The inhaler therapy has also been affecting beneficial though now that she is on biologic therapy will going to start deescalating her respiratory regimen. She is also breathing better through her nose as the Dupixent is helping her with her nasal polyposis. No recent imaging to review. Will continue with current respiratory therapy and follow-up in the springtime when she has worsening symptoms. 11/24/2024 the patient is here for pulmonary follow-up visit. The patient overall has been doing okay. Unfortunately her Dupixent was no longer covered and therefore she has had worsening nasal congestion. We did review her blood work. She does have significant eosinophilia and also elevations in her IgE. The patient has both a candidate for Fasenra in [address] [place] [address]. At this point will continue to optimize respiratory therapy and her nasal therapy to try to minimize her symptoms. If there is no significant Center relief then we can consider additional biologic regimens. I did give her information about Fasenra is a good option for her to consider. [facility] Medical History Renal agenesis Nasal polyposis Thymus hyperplasia IBS (irritable bowel syndrome) Personal history of nicotine dependence Allergies Asthma Hypercholesterolemia Surgical History History of hysterectomy (~2005) History of endoscopy History of colonoscopy Family History Father History of colon cancer Mother No problems noted. 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 Review of Systems Const Denies chills, Denies fatigue, Denies fever(s), Denies weight gain and Denies weight loss Eyes Denies change in vision ENT Denies dizziness, Reports nasal congestion, Reports nasal discharge, Reports nasal obstruction and Reports post nasal drip Card Denies chest pain, Denies leg edema, Denies lightheadedness, Denies palpitations, Denies dyspnea on exertion, Denies orthopnea and Denies other Resp Reports cough, Denies dyspnea on exertion and Reports wheezing GI Denies hematochezia and Denies change in stool character Musc Denies abnormal gait, Denies muscle weakness, Denies numbness, Denies radiating pain into limb and Denies tingling Neuro Denies abnormal gait, Denies dizziness, Denies numbness and Denies tingling Endo Denies fatigue and Denies palpitations Aller/Immun Reports wheezing Physical Exam Vital Signs: Last Vital Signs Pulse 77 11/24/24 14:18 BP 120/77 11/24/24 14:18 Pulse Ox 97 11/24/24 14:18 Oxygen Delivery Method Room Air 11/24/24 14:18 BMI result Body Mass Index 38.5 Const General: alert Neck Neck: Yes normal visual inspection, Yes full ROM and Yes no lymphadenopathy Chest Chest palpation & inspection: normal inspection of the chest Resp Effort & Inspection: normal respiratory effort Auscultation: no rales, no rhonchi and no wheezes Cardio Rate: regular rate Rhythm: regular rhythm Heart sounds: S1 normal heart sound present and S2 normal heart sound present GI Palpation (GI): Soft to palpation and nontender Auscultation: normal bowel sounds Skin General skin exam: rashes and/or lesions noted Assessment & Plan Assessment & Plan (1) Asthma: Code(s): J45.909 - Unspecified asthma, uncomplicated Category: Medical Qualifiers: Asthma complication type: uncomplicated Asthma persistence: persistent Asthma severity: moderate Qualified Code(s): J45.40 - Moderate persistent asthma, uncomplicated (2) Allergies: Code(s): T78.40XA - Allergy, unspecified, initial encounter Category: Medical Qualifiers: Encounter type: subsequent encounter Qualified Code(s): T78.40XD - Allergy, unspecified, subsequent encounter (3) 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 Singulair qHS during the spring if her allergies worsen stopped Dupixent k1olldi continue Lolita start pseudophedrine start singulair follow-up in 8-12 months Medications: New fexofenadine ([facility]olita Allergy) 180 mg PO DAILY 30 tabs 1RF 30 days montelukast (Singulair) 10 mg PO BEDTIME 30 tabs 11RF 30 days J45.909 - Unspecified asthma, uncomplicated pseudoephedrine HCl ER 120 mg PO Q12H 60 tabs 2RF 30 days Refilled albuterol sulfate 90 mcg/actuation 2 inhalations inhalation Q6H PRN 1 ea 11RF shortness of breath or wheezing 30 days J44.9 - Chronic obstructive pulmonary disease, unspecified Coding Level of Care Code Est Pt Level 4 (36822) Diagnoses Moderate persistent asthma without complication J45.40 Asthma complication type: uncomplicated Asthma persistence: persistent Asthma severity: moderate Allergy, subsequent encounter T78.40XD Encounter type: subsequent encounter Thymus hyperplasia E32.0 Nasal polyposis J33.9 Time Spent (min) 16
== END 2024-11-24 14:47 | disposition home or self-care (01) ==
LOC: HO.HPS 13:48
PROVIDERS: PCP Internal Medicine; Visit Provider Hospitalist
DX: J45.40 Moderate persistent asthma, uncomplicated (principal); T78.40XD Allergy, unspecified, subsequent encounter; E32.0 Persistent hyperplasia of thymus; J33.9 Nasal polyp, unspecified
CPT/HCPCS: 99214

== ENCOUNTER 2025-04-13 07:07 | Outpatient (REF) | payer BC, SELFPAY ==
--- OUTSIDE RECORDS SUMMARY | 2024-03-31 04:15 | XMS_ITS ---
Author Organization Daniel Bragg MD Address [address] [place] [phone] Care Team Providers Care Runner Worker Name Role Phone Mahsa Daniel Primary Care Provider REASON FOR VISIT Ct scan lung screening Encounters Encounter Location Date Provider Diagnosis Daniel Bragg MD [facility] [address] [place] [phone] 03/31/2024 Daniel Bragg Plan Of Treatment Next Appt Details Provider Name:Daniel montero, 04/25/2025 07:15:00 AM, [address] [place] [address], [place] [address], [place], [place], [phone], Provider Name:Daniel montero, 05/04/2025 07:45:00 AM, [address] [place] [address], [place] [address], [place], [place], [phone], Provider Name:Daniel montero, 10/20/2025 07:30:00 AM, [address] [place] [address], [address], [place], [place], [phone], Provider Name:Daniel montero, 10/27/2025 08:30:00 AM, [facility], [address], [place], [place], [phone], Progress Notes * Samira FIGUEROA LDOB: [birth year] (53 yo F)Acc No.[id number]:03/31/2024 Patient: Samira Quinonez :1970 A ge:53 Y S ex:Female Address:[address] [place] [id number] * true * Date: Generated for Steve ramírez/Sisi/Zacksmitting on: 0 04/13/2025 07:11 AM EDT
--- OUTSIDE RECORDS SUMMARY | 2024-06-21 03:00 | XMS_ITS ---
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 Name Role Phone Daniel Bragg Primary Care Provider Results Component Value Reference Range Notes Liver Panel Reviewed date:06/21/2024 08:13:23 PM Interpretation: Performing Lab:[facility], [address] [place] [phone] Notes/Report: Bilirubin Total 0.3 0.0-1.0 mg/dL Bilirubin Direct 0.2 0.0-0.5 mg/dL Aspartate Amino Transferase 23 5-31 U/L Alanine Aminotransferase 24 0-31 U/L Total Protein 7.0 6.5-8.0 g/dL Albumin Level 4.1 3.5-5.0 g/dL Alkaline Phosphatase 71 39-117 U/L Lipid Panel with Reflex Reviewed date:06/21/2024 08:13:15 PM Interpretation: Performing Lab:[facility], [address] [place] [phone] Notes/Report: Triglycerides 123 <150 mg/dL Desirable Triglyceride: less than 150 mg/dL Borderline High Triglyceride 150-199 mg/dL High Triglyceride: 200-499 mg/dL Very High Triglyceride: greater than or equal to 5OO mg/dL Cholesterol 171 <200 mg/dL Desirable Cholesterol: less than 200 mg/dL Borderline High Cholesterol: 200-239 mg/dL High Cholesterol: greater than 239 mg/dL LDL Cholesterol Calculated 96 <100 mg/dL Desirable LDL: less than 100 mg/dL Near Optimal/Above Optimal LDL: 110-129 mg/dL Borderline High LDL: 130-159 mg/dL High LDL: 160-189 mg/dL Very High LDL: greater than or equal to 190 mg/dL HDL Cholesterol 51 >40 mg/dL Desirable HDL: greater than 40 mg/dL Note: This HDL assay may give artificially low results in patients with liver disease. REASON FOR VISIT fasting liver lipids Medications Medication SIG (Take, Route, Frequency, Duration) Notes Start Date End Date Status Rosuvastatin Calcium 40 MG take 1 tablet by mouth daily Orally Once a day for 90 days Active Trelegy Ellipta 200-62.5-25 MCG/INH 1 puff Inhalation Once a day Active Ibuprofen 800 MG 1 tablet Orally Thre e times a day for 30 day(s) 09/28/2012 Not-Taking Albuterol Sulfate HFA 108 (90 Base) MCG/ACT 2 puffs as needed Inhalation every 4 hrs Not-Takin g Singulair 10 MG 1 tablet Orally Once a day for 30 day(s) Not-Taking ZyrTEC Allergy 10 MG 1 tablet Orally Onc e a day Active Dupixent 200 MG/1.14ML as directed Subcutaneous Active Omeprazole 20 MG 1 capsule 30 minutes before morning meal Orally Once a day for 30 day(s) Active Dupixent 200 MG/1.14ML as directed Subcutaneous Active Encounters Encounter Location Date Provider Diagnosis Daniel Bragg MD [address] [place], [place] [phone] 06/21/2024 Daniel Bragg Pure hypercholestero lemia E78.00 Assessments Encounter Date Diagnosis (ICD Code) Assessment Notes Treatment Notes Treatment Clinical Notes Section Notes 06/21/2024 Pure hypercholesterolemia (ICD-10 - E78.00) Plan Of Treatment Next Appt Details Provider Name:Daniel Coates ier, 04/25/2025 07:15:00 AM, [address] [place] [address], [address], [phone], Provider Name:Daniel Coates ier, 05/04/2025 07:45:00 AM, [address] [place] [address], [address], [phone], Provider Name:Daniel Coates ier, 10/20/2025 07:30:00 AM, [address] [place] [address], [address], [phone], Provider Name:Daniel Coates ier, 10/27/2025 08:30:00 AM, [address] [place] [address], [address], [phone], Progress Notes * Samira FIGUEROA LDOB: [birth year] (54 yo F)Acc No.[id number]:06/21/2024 Progress Note Patient: Samira TOSCANO Provider: Anisha Bragg MD :1970 A ge:53 Y S ex:Female Date:06/21/2024 Address:[address] [place], [place] [phone] Subjective: * Chief Complaints: * 1 . Fasting liver lipids. * Medical History: * Medications: T aking Dupixent 200 MG/1.14ML Solution Pen-injector as directed Subcutaneous , Taking Dupixent 200 MG/1.14ML Solution Pen-injector as directed Subcutaneous , Taking Omeprazole 20 MG Capsule Delayed Release 1 capsule 30 minutes before morning meal Orally Once a day , Taking ZyrTEC Allergy 10 MG Tablet 1 tablet Orally Once a day , Taking Rosuvastatin Calcium 40 MG Tablet take 1 tablet by mouth daily Orally Once a day , Taking Trelegy Ellipta 200-62.5-25 MCG/INH Aerosol Powder Breath Activated 1 puff Inhalation Once a day , Not-Taking/PRN Singulair 10 MG Tablet 1 tablet Orally Once a day , Not-Taking/PRN Ibuprofen 800 MG Tablet 1 tablet Orally Three times a day , Not-Taking/PRN Albuterol Sulfate HFA 108 (90 Base) MCG/ACT Aerosol Solution 2 puffs as needed Inhalation every 4 hrs Objective: * Vitals: Assessment: * Assessment: 1. P ure hypercholesterolemia - E78.00 (Primary) Plan: * Treatment: * Procedure Codes: 3 6415 VENIPUNCT, ROUTINE* * * The named appointment provid er may or may not be the originator of this progress note, and it is not deemed complete until electronically signed by the appointment provider. Sign off status: Pending * Provider: Anisha Bragg MD Date: 08/21/2023 Generated for Steve ramírez/Sisi/Hardikitting on: 0 04/13/2025 07:11 AM EDT
--- OUTSIDE RECORDS SUMMARY | 2024-10-18 03:15 | XMS_ITS ---
Author Organization Daniel Bragg MD Address [address] [place], [place] [phone] Care Team Providers Care Machine Plate Stacker Name Role Phone Mahsa Daniel Primary Care Provider [phone] Results Component Value Reference Range Notes Complete Blood Count Auto Di ff Reviewed date:10/18/2024 12:20:03 PM Interpretation: Performing Lab:[facility], [address] [place] [phone] Notes/Report: White Blood Count 7.3 4.8-10.8 X10*3/uL [...] NRBC Abs Auto 0.000 0.0-0.012 X10*3/uL Comprehensive [place]. Panel Fa st Reviewed date:10/18/2024 12:43:14 PM Interpretation: Performing Lab:[facility], [address] [place] [phone] Notes/Report: Sodium 144 135-145 mmol/L Potassium 3.9 [...] Panel Reviewed date:10/18/2024 12:09:21 PM Interpretation: Performing Lab:[facility], [address] [place] [phone] Notes/Report: Triglycerides 266 <150 mg/dL Desirable Triglyceride: [...] t Reviewed date:10/18/2024 12:20:56 PM Interpretation: Performing Lab:[facility], [address] [place] [phone] Notes/Report: Urine, Clean Catch Color Urine Yellow Appearance Urine Clear PH 5.5 5.0-9.0 Glucose Urine UA Negative Negative mg/dL Urine Blood Negative Negative Specific [place] - Urine 1.020 1.005-1.025 Urine Protein Negative [...] Location Date Provider Diagnosis Daniel Bragg MD [address] [place] [address] Drive [address] [place], [place] [phone] 10/18/2024 Daniel Bragg Blood tests for rout ine general physical examination Z00.00 and Pure hypercholesterolemia E78.00 Assessments Encounter Date Diagnosis (ICD Code) Assessment Notes Treatment Notes Treatment Clinical Notes Section Notes 10/18/2024 Blood tests for ed[place] webber general physical examination (ICD-10 - Z00.00) 10/18/2024 Pure hypercholesterolemia (ICD-10 - E78.00) Plan Of Treatment Next Appt Details Provider Name:Daniel Coates ier, 04/25/2025 07:15:00 AM, [address] [place] [address], [address] [place] [address], [phone], Provider Name:Daniel Coates ier, 05/04/2025 07:45:00 AM, [address] [place] [address], [place] [address], [place], [place], [phone], Provider Name:Daniel Coates ier, 10/20/2025 07:30:00 AM, [address] [place] [address], [address], [phone], Provider Name:Daniel Coates ier, 10/27/2025 08:30:00 AM, [address] [place] [address], [address], [phone], Progress Notes * Samira FIGUEROA LDOB: [birth year] (54 yo F)Acc No.[id number]:10/18/2024 Progress Note Patient: Samira TOSCANO Provider: Anisha rBagg MD :1970 A ge:54 Y S ex:Female Date:10/18/2024 Address:[address] [place], [place] [phone] Subjective: * Chief Complaints: * 1 . Yearly faxing labs. * Medical History: Objective: * Vitals: Assessment: * Assessment: 1. B lood tests for routine general physical examination - Z00.00 (Primary) 2 .?Pure hypercholesterolemia - E78.00 Plan: * Treatment: 2. P ure hypercholesterolemia L AB: Complete Blood Count Auto Diff (Collection Date & Time - 10/18/2024 07:15 AM) L AB: Comprehensive [place]. Panel Fast (Collection Date & Time - [...] 10/18/2024 Generated for Steve ramírez/Sisi/Hardikitting on: 0 04/13/2025 07:10 AM EDT
--- OUTSIDE RECORDS SUMMARY | 2024-10-25 06:00 | XMS_ITS ---
Author Organization Daniel Bragg MD Address [address] [place] [phone] Care Team Providers Care Garage Door Hanger Name Role Phone Daniel Bragg Primary Care Provider Allergies Allergen (clinical drug ingredient) Drug/Non Drug [...] Location Date Provider Diagnosis Daniel Bragg MD [address] [place] [address] [place] [phone] 10/25/2024 Daniel Bragg Annual physical exam Z00.00 [...] Up: 6 Months, Reason: Provider Name:Daniel montero, 04/25/2025 07:15:00 AM, [address] [place] [address], [address], [phone], Provider Name:Daniel montero, 05/04/2025 07:45:00 AM, [address] [place] [address], [address], [phone], Provider Name:Daniel montero, 10/20/2025 07:30:00 AM, [address] [place] [address], [address], [phone], Provider Name:Daniel montero, 10/27/2025 08:30:00 AM, [address] [place] [address], [address], [phone], Progress Notes * Samira FIGUEROA LDOB: [birth year] (54 yo F)Acc No.[id number]:10/25/2024 Progress Notes Patient: Samira TOSCANO Provider: Anisha Bragg MD :1970 A ge:54 Y S ex:Female Date:10/25/2024 Address:[address] [place] [address] Subjective: * Chief Complaints: * A nnual [...] Auto 0.000 0.0-0.012 - X10*3/uL L ab:Comprehensive [place]. Panel Fast (Order Date - 10/18/2024) (Collection [...] mg/dL Urine Blood Negative Negative - Specific [place] - Urine 1.020 1.005-1.025 - Urine Protein [...] masses palpable. RECTAL EXAM: d one by sanitation technician. FEMALE GENITOURINARY: d one by sanitation technician. EXTREMITIES: n o clubbing, cyanosis, or edema. [...] MD Date: 0 10/25/2024 Generated for Steve ramírez/Sisi/Sejal on: 0 04/13/2025 07:11 AM EDT History and Physical Notes * HPI [...] mass, no lump RECTAL EXAM: done by sanitation technician FEMALE GENITOURINARY: done by sanitation technician ORAL CAVITY: mucosa moist
--- OUTSIDE RECORDS SUMMARY | 2024-10-31 10:40 | XMS_ITS ---
Author Organization Daniel Bragg MD Address [address] [place] [phone] Care Team Providers Care Valet Parker Name Role Phone Daniel Bragg Primary Care Provider REASON FOR VISIT [place] [facility] Medications Medication SIG (Take, Route, Frequency, Duration) Notes Start Date End Date Status Ocuflox 0.3 % 2 drops in affected eye Ophthalmic 4 times a day for 7 days 10/31/2024 Active Encounters Encounter Location Date Provider Diagnosis Daniel Bragg MD [address] [place] [phone] 10/31/2024 Daniel Bragg Plan Of Treatment Medication Medication Name Sig Start Date Stop Date Notes Ocuflox 0.3 % 2 drops in affected eye Ophthalmic 4 times a day for 7 days 10/31/2024 Next Appt Details Provider Name:Daniel montero, 04/25/2025 07:15:00 AM, [address], Suite [facility], [place], [place], [phone], Provider Name:Daniel Coates ier, 05/04/2025 07:45:00 AM, [address] [place] [address], Suite [facility], [place], [place], [phone], Provider Name:Daniel Coates ier, 10/20/2025 07:30:00 AM, [address] [place] [address], Suite [facility], [place], [place], [phone], Provider Name:Daniel Coates ier, 10/27/2025 08:30:00 AM, [address] [place] [address], Suite [facility], [place], [place], [phone], Progress Notes * Samira FIGUEROA LDOB: [birth year] (54 yo F)Acc No.[id number]:10/31/2024 Patient: Anisha AJITPasqualeSamira :1970 A ge:54 Y S ex:Female Address:[address] [place] [phone] * Refills Start Ocuflox Solution, 0.3 %, Ophthalmic, 2.8 ML, 2 drops in affected eye, 4 times a day, 7 days * true * Date: Generated for Steve ramírez/Sisi/Hardikitting on: 0 04/13/2025 07:11 AM EDT
--- NOTE | ~2025-04-13 | CT_ITS ---
EXAMINATION: CT LUNG SCREENING HISTORY: Z87.891 - Personal history of nicotine dependence TECHNIQUE: Low dose axial images were obtained from the sternal notch to upper abdomen without IV contrast per standard departmental protocol. Sagittal and coronal reformatted images were also obtained and reviewed. One or more of the following techniques was used for dose reduction: Automated exposure control, adjustment of the mA and/or kV according to patient size, use of iterative reconstruction technique. DLP: 54 mGy-cm COMPARISON: Comparison is made with the prior examination dated 03/28/2024. FINDINGS: Lung nodules: Again seen is a 2 mm nodule in the right upper lobe (series 4, image 28). No additional pulmonary nodules are identified. Emphysema: mild Coronary Calcification: none Aortic Arch Calcification: mild Potentially Significant Incidentals : none Additional Chest Findings: Again seen is soft tissue density in the anterior mediastinum which likely represents residual thymus. There is no pleural or pericardial effusion. No mediastinal or axillary lymphadenopathy is identified. Visualized upper abdomen: The visualized portions of the liver, spleen, and adrenals have an unremarkable unenhanced appearance. CT/CT lung screening IMPRESSION: No suspicious pulmonary nodules are identified. LUNG-RADS ASSESSMENT: Lung-RADS 2: Benign MANAGEMENT: Continue annual screening with LDCT in 12 months Category S: N/A Electronically signed by: Angel Rodriguez MD 04/13/2025 07:49 AM EDT
--- OUTSIDE RECORDS SUMMARY | 2025-04-13 07:11 | XMS_ITS | Patient Health Record ---
Author Organization Daniel Bragg MD Address [address] [place], [place] [address] Care Team Providers Care Bus And Sys Integration Senior Manager Name Role Phone Daniel Bragg Primary Care Provider [phone] Allergies Allergen (clinical drug ingredient) Drug/Non Drug Allergy documented on EMR Reaction Allergy Type Onset Date Status penicillin G Penicillin G Sodium Unknown Drug Allergy Active cephalexin Cephalexin Unknown Drug Allergy Activ e amoxicillin Amoxicillin anaphylaxis Drug Allergy A ctive Results Component Value Reference Range Notes Liver Panel Reviewed date:06/21/2024 08:13:23 PM Interpretation: Performing Lab:[facility], [address] [place] [phone] Notes/Report: Bilirubin Total 0.3 0.0-1.0 mg/dL Bilirubin Direct 0.2 0.0-0.5 mg/dL Aspartate Amino Transferase 23 5-31 U/L Alanine Aminotransferase 24 0-31 U/L Total Protein 7.0 6.5-8.0 g/dL Albumin Level 4.1 3.5-5.0 g/dL Alkaline Phosphatase 71 39-117 U/L Lipid Panel with Reflex Reviewed date:06/21/2024 08:13:15 PM Interpretation: Performing Lab:[facility], [address] [place] [phone] Notes/Report: Triglycerides 123 <150 mg/dL Desirable Triglyceride: [...] ff Reviewed date:10/18/2024 12:20:03 PM Interpretation: Performing Lab:[facility], [address] [place] [phone] Notes/Report: White Blood Count 7.3 4.8-10.8 X10*3/uL [...] NRBC Abs Auto 0.000 0.0-0.012 X10*3/uL Comprehensive [place]. Panel Fa st Reviewed date:10/18/2024 12:43:14 PM Interpretation: Performing Lab:[facility], [address] [place] [phone] Notes/Report: Sodium 144 135-145 mmol/L Potassium 3.9 [...] Panel Reviewed date:10/18/2024 12:09:21 PM Interpretation: Performing Lab:[facility], [address] [place] [phone] Notes/Report: Triglycerides 266 <150 mg/dL Desirable Triglyceride: [...] t Reviewed date:10/18/2024 12:20:56 PM Interpretation: Performing Lab:[facility], [address] [place] [phone] Notes/Report: Urine, Clean Catch Color Urine Yellow Appearance Urine Clear PH 5.5 5.0-9.0 Glucose Urine UA Negative Negative mg/dL Urine Blood Negative Negative Specific [place] - Urine 1.020 1.005-1.025 Urine Protein Negative Neg-Trace mg/dL Urine Ketones Negative Negative mg/dL Nitrite Urine Negative Negative Leukocyte Esterase Urine Moderate (2+) Negative RBC Urine 0-2 0-2 /HPF WBC Urine 6-10 0-5 /HPF Squamous Epithelial Cell Urine 3-5 0-2 /HPF Bacteria Urine None Seen None Seen Hyaline Casts Urine 3-5 0-2 /LPF Pathology Reviewed date:06/20/2024 04:52:39 PM Interpretation: Performing Lab:[facility], [address] [place] [phone] Notes/Report: ------- Name: Samira Moreira Age/Sex: 53/F : 1970 [id number] Unit#: [id number] Attend Dr: Luma Diaz MD Re06/16/24 Status : [facility] Location: [facility] Disch: ------- SPEC : [id number] RECD : 06/16/24-1232 STATUS: CHRISTIANMonica PATEL NUM: [id number] CAMPBELL: 06/16/24-[address]: Luma Diaz MD ENTERED: 06/16/24-12 43 SP TYPE: Surgical OTHR DR: Daniel Bragg MD ORDERED: HE Stain/21 , Gross Micro L4/8, Congo red/8, IHC/9, Special st. 2/10, H. pylori, CD117/8, AB/PAS/2 Diagnosis A. Duodenum, biopsy: Duodenal mucosa with preserved villous architecture and increased intraepithelial lymp hocytes (see comment). B. Stomach, biopsy: Gastric antral [...] with increased lamina propria eosinophils and focally intraepi thelial eosinophils (see comment). G. Colon, left side, biopsy: Colonic mucosa with increased lamina propria eosinophils, focally intraepithel ial eosinophils and scattered Paneth cell metaplasia (see comment). H. Rectum, biopsy: F ocal active colitis with increased lamina propria eosinophils and focally intraepithel ial eosinophils (see comment). COMMENT (A): These f indings raise the possibility of celiac disease; however [...] correlation is recommended. COMMENT (F, G, H): B iopsies from the right and left colon show increased lamina propria and focally intraepi thelial eosinophils. Although a non-specific finding, increased eosinophils could be associated with a drug-induced or allergic colitis and certain infections. Clinical correlation is advised. The presence of Paneth cells in part G may likely represent chr onic regenerative change. CONTINUED ON NEXT PAGE ------- Name: Samira Moreira Age/Sex: 53/F : 1970 Unit#: [id number] Attend Dr: Luma Diaz MD Re06/16/24 Status : [facility] Location: [facility] Disch: ------- SPEC : [id number] RECD : 06/16/241233 STATUS: RENEE PATEL NUM: [id number] CAMPBELL: 06/16/24-1125 [facility] DR: Luma Diaz MD ENTERED: 06/16/24-12 43 [...] in this c ase). In one study (Winston, et al. PMID [id number]), the number of mast cells per high-power [...] and drugs , among other etiologies (Cj, etal. PMID 48396016). Correlation with the patient's c linical presentation and other laboratory studies is necessary. [...] amyloid, mast cells) CONTINUED ON NEXT PAGE ------- Name: Samira Moreira Age/Sex: 53/F : 1970 Unit#: [id number] Attend Dr: Luma Diaz MD Re06/16/24 Status : [facility] Location: [facility] Disch: ------- SPEC : [id number] RECD : 06/16/24-1233 STATUS: [facility] NUM: [id number] CAMPBELL: 06/16/24-1125 [facility] DR: Luma Diaz MD ENTERED: 06/16/24-12 43 [...] in formalin labeled ?gastric polyp? are 2 sancehz-pink irregular tissue fragments each measu ring 0.3 [...] To: Daniel Bragg MD [facility] [address] [place] [address] [place], [place] [phone] CONTINUED ON NEXT PAGE ------- Name: Samira Moreira Age/Sex: 53/F : 1970 Unit#: [id number] Attend Dr: Luma Diaz MD Re06/16/24 Status : [facility] Location: [facility] Disch: ------- SPEC : [id number] RECD : 06/16/24 STATUS: RENEE PATEL NUM: [id number] CAMPBELL: 06/16/24 [facility] DR: Luma Diaz MD ENTERED: 06/16/24 43 SP TYPE: Surgical OTHR DR: Daniel Bragg MD ORDERED: HE Stain/ , Gross Micro L4/8, [place] red/8, IHC/9, Special st. 2/10, H. pylori, CD117/8, AB/PAS/2 Copies To: (Continued) Luma Diaz MD [facility] [address] [place] [phone] ------- Signed (si gnature on file) Daisha Oconnor MD 06/20/24 1325 ------- END OF REPORT Raudel Tan Reviewed date:06/21/2024 08:13:07 PM Interpretation: Performing Lab:[facility], [address] [place] [address] Notes/Report: Hold Gold See Note Specimen held untested for 24 hours; Call to request Chemistry testing. Urine Culture Reviewed date:10/19/2024 03:25:34 PM Interpretation: Performing Lab:[facility], [address] [place] [address] Notes/Report: Urine Culture Report Result Urine Culture < 10,000 cfu/ml MM tomosynthesis screening B I Reviewed date:11/25/2024 03:55:43 PM Interpretation: Performing Lab: Notes/Report: [facility] [address] [place] [address] Mammography Report Signed Patient: Samira Moreira MR#: [id number] 00 : 1970 Acct:[id number] Age/Sex: 54 / F ADM Date: 11/14/24 Loc: HO.MAMMO Attending Dr: Daniel Bragg MD Ordering Physician: Daniel Bragg MD Results: 2Be nign Findings Date of Service: 11/14/24 Follow Up: 1 Year From Orig ina Mammogram Procedure(s): MM tomosynthesis screening BI Accession Number(s): [id number] cc: Daniel Bragg MD EXAMINATION: MM SCREENING DIGITAL BREAST TOMOSYNTHESIS, BILATERAL CLINICAL INFORMATION: Screening. Asymptomatic. COMPARISON: Mammography: Comparison is made with available priors TECHNIQUE: Digital breast mammography with tomosynthesis is performed in both the craniocaudal and mediolateral oblique views along with computer-aided detection (CAD). FINDINGS: There are scattered areas of fibroglandular density (ACR BI-RADS breast composition Category b). Oval mass retroareolar region left breast middle depth and anterior depth stable dating back to 2021. There are no significant masses, abnormal calcifications, or other abnormalities. MM/MM tomosynthesis screening BI IMPRESSION: No mammographic evidence of malignancy. ASSESSMENT: BI-RADS BI-RADS 2 - Benign Findings RECOMMENDATION: Routine annual mammography screening. 1 year F/U This examination should not preclude the clinical evaluation of a suspicious palpable abnormality. This patient's information was entered into a reminder system with a target due date for their next mammogram. Electronically signed by: Claire Justin DO 11/25/2024 09:55 AM EDT Dictated By: Claire Justin DO Signed By: <Electronically signed by Claire Justin DO in OV> 11/25/24 0955 DD/ 1500 TD/TT: 11/14/24 1518 Telecom Coordinator: [facility] [address] [place] [address] Mammography Report Signed Patient: Nadia Moreira MR#: [id number] 00 : 1970 Acct:[id number] Age/Sex: 54 / F ADM Date: 11/14/24 Loc: HO.MAMMO Attending Dr: Daniel Bragg MD Ordering Physician: Daniel Bragg MD Results: 2Be nign Findings Date of Service: Follow Up: 1 Year From Orig ina Mammogram Procedure(s): MM tomosynthesis screening BI Accession Number(s): [id number] cc: Daniel Bragg MD EXAMINATION: MM SCREENING DIGITAL BREAST TOMOSYNTHESIS, BILATERAL CLINICAL INFORMATION: Screening. Asymptomatic. COMPARISON: Mammography: Compari son is made with available priors TECHNIQUE: Digital breast mammo graphy with tomosynthesis is performed in both the craniocaudal and mediolateral oblique views along with computer-aided detection (CAD). FINDINGS: There are scattered areas of fibroglandular density (ACR BI-RADS breast composition Category b). Oval mass retroareol ar region left breast middle depth and anterior depth stable dating back to 2021. There are no signifi cant masses, abnormal calcifications, or other abnormalities. M M/MM tomosynthesis screening BI IMPRESSION: No mammographic evid ence of malignancy. ASSESSMENT: BI-RADS BI-RADS 2 - Benign Findings RECOMMENDATION: Routine annual mammo graphy screening. 1 year F/U This examination leena uld not preclude the clinical evaluation of a suspicious palpable abnormality. This patient's infor mation was entered into a reminder system with a target due date for their next mammogram. Electronically gaby d by: Claire Justin DO 11/25/2024 09:55 AM EDT Dictated By: Claire Justin DO Signed By: <Yamile munoz signed by Claire Justin DO in OV> 11/25/24 0955 DD/ 1500 TD/TT: 11/14/24 1518 Telecom Coordinator: Reason For Referral No Information Medications Medication [...] At work. Fluarix Quadrivalent IM Intramuscular 04/27/2014 Administe red PPSV23 (Pnemovax) IM Intramuscular 05/08/2014 Administered Flu Vaccine Unknown 05/16/2015 Administered At work Oct evOLED Prevnar 13 IM Intramuscular 11/12/2015 Administered Fluarix Quadrivalent Unknown 05/18/2017 Administered At work [employer] Flu Vaccine Unknown 05/14/2018 Administered had at work Fluarix Quadrivalent IM Intramuscular 05/13/2019 Administe red Pt was given the vaccine at work. PPSV23 (Pnemovax) IM Intramuscular 06/10/2019 Administered Fluarix Quadrivalent Unknown 05/18/2020 Administered Liang d it at work [employer] Fluarix Quadrivalent IM Intramuscular 04/25/2021 Administe red SARS-COV-2 Pfizer Unknown 12/28/2020 Administered SARS-COV-2 Pfizer [...] W/U Status Risk Notes Problem Pure hypercholesterolemia (111397175) Pure hypercholesterolemia (E78.0) Active confirmed Problem 803478465 Irritable bowel syndrome with diarrhea (K58.0) Active confirmed Problem 97277928 Leukemoid reacti on (D72.823) Active confirmed Problem 2278168 Panlobular emphy sema (J43.1) Active confirmed Problem 061574465 Body mass index (BMI) 34.0-34.9, adult (Z68.34) Active confirmed Problem 2455890 Arthritis (M19.90) Active confirmed Problem 893844970 Abnormal mammogr am of left breast (R92.8) Active confirmed Problem 770481440 Drug allergy (Z88.9) Active confirmed Problem 367978911 Pure hypercholesterolemia, unspecified (E78.00) Active confirmed Problem 568938292 Pure hypercholesterolemia (E78.00) Active confirmed Problem 64840337 Seasonal allergi c rhinitis due to pollen (J30.1) Active confirmed Problem 954482364 Body mass index (BMI) of 33.0-33.9 in adult (Z68.33) Active confirmed Problem Solitary pulmonary nodule (914228363) Incidental lung nodule (R91.1) Active confirmed Problem 69327963 Hyperplastic deng yp of ascending colon (K63.5) Active confirmed Problem 186606393 Elevated serum cholesterol (E78.9) Active confirmed Vital [...] Daniel Bragg MD [address] [place] [phone] 06/21/2024 Daniel Bragg Pure hypercholestero lemia E78.00 Daniel Bragg MD [address] [place] [phone] 10/18/2024 Daniel Bragg Blood tests for rout ine general physical examination Z00.00 and Pure hypercholesterolemia E78.00 Daniel Bragg MD [address] [place] [phone] 10/25/2024 Daniel Bragg Annual physical exam Z00.00 ; Seasonal allergic rhinitis due to pollen J30.1 ; Pure hypercholesterolemia E78.00 ; Panlobular emphysema J43.1 and Depression screening Z13.31 Daniel Bragg MD [address] [place] [phone] 10/31/2024 Daniel Bragg Assessments Encounter Date Diagnosis (ICD Code) Assessment Notes Treatment Notes Treatment Clinical Notes Section Notes 06/21/2024 Pure hypercholesterolemia (ICD-10 - E78.00) 10/18/20[address] tests [address] ine general physical examination (ICD-10 - Z00.00) 10/25/2024 Annual physical exam (ICD-10 - Z00.00) [...] LT 10/02 Next Appt Details Provider Name:Daniel montero, 04/25/2025 07:15:00 AM, [address] [place] [address], [address], [phone], Provider Name:Daniel montero, 05/04/2025 07:45:00 AM, [address] [place] [address], [address], [phone], Provider Name:Daniel montero, 10/20/2025 07:30:00 AM, [address] [place] [address], [address], [phone], Provider Name:Daniel montero, 10/27/2025 08:30:00 AM, [address] [place] [address], [address], [phone], Insurance Providers Payer Name Payer Address Payer Phone Subscriber Number Group Number Insured Name Patient Relationship to Insured Coverage Start Date Coverage End Date [employer] [facility] [address] [place], [place] [phone] [id number] Samira Moreira Self - patient is the insured 4 Medical (General) History Medical History History ICD Code colonoscopy 07/26/2013 , Col onoscopy and Endoscopy done 07/26/19 repeat 2-3 yearsColonoscopy 06/16/[address] Mclaughlin, INFANTRY OPERATIONS SPECIALIST hYSTERECTOMY, 2005
== END 2025-04-13 07:08 | disposition home or self-care (01) ==
LOC: HO.CT 07:07
PROVIDERS: PCP Internal Medicine; Visit Provider Physician Assistant Medical
DX: Z12.2 Encounter for screening for malignant neoplasm of respiratory organs (principal); Z87.891 Personal history of nicotine dependence
CPT/HCPCS: 71271

== ENCOUNTER → 2025-04-13 07:08 | Outpatient (BNV) | payer BC, SELFPAY | PROVIDERS: PCP Internal Medicine; Visit Provider Radiology Diagnostic Radiology | DX: Z87.891 Personal history of nicotine dependence (principal) | CPT/HCPCS: 71271 ==

== ENCOUNTER 2025-04-25 11:19 | Outpatient (REF) | payer BC, SELFPAY ==
--- OUTSIDE RECORDS SUMMARY | 2024-10-18 03:15 | XMS_ITS ---
Author Organization Daniel Bragg MD Address [address] [place] [phone] Care Team Providers Care Cook Syrup Maker Name Role Phone MahsaKasian Primary Care Provider [phone] Results Component Value Reference Range Notes Complete Blood Count Auto Di ff Reviewed date:10/18/2024 12:20:03 PM Interpretation: Performing Lab:[facility], [address] [place] [phone] Notes/Report: White Blood Count 7.3 4.8-10.8 X10*3/uL Red Blood Count 5.20 4.20-5.50 X10*6/uL Hemoglobin 14.1 12.0-16.0 g/dl Hematocrit 44.9 37.0-47.0 % Mean Corpuscular Volume 86.3 80.0-98.0 fL Mean Corpuscular Hemoglobin 27.1 27.0-33.0 pg Mean Corpuscular HGB Conc 31.4 31.0-35.0 g/dl Red Cell Distribution Width 14.5 11.0-16.0 % Platelet Count 250 160-400 X10*3/uL Mean Platelet Volume 12.5 9.4-12.3 fL Neutrophils Percent Auto 53.4 45-73 % Imm Gran Pct Auto 0.5 0.0-0.4 % Lymphocytes Percent Auto 30.8 20-40 % Monocytes Percent Auto 7.4 2-11 % Eosinophils Percent Auto 7.1 0-4 % Basophils Percent Auto 0.8 0-2 % NRBC Pct Auto 0.0 0.0-0.2 /100WBC Neutrophils Absolute Auto 3.9 2.0-8.3 x10*3/u L Imm Gran Abs Auto 0.04 0.00-0.03 X10*3/uL Lymphocytes Absolute Auto 2.3 1.2-4.9 X10*3/u L Monocytes Absolute Auto 0.5 0.1-1.2 X10*3/uL Eosinophils Absolute Auto 0.5 0.0-0.4 X10*3/u L Basophils Absolute Auto 0.1 0.0-0.2 X10*3/uL NRBC Abs Auto 0.000 0.0-0.012 X10*3/uL Comprehensive [place]. Panel Fa st Reviewed date:10/18/2024 12:43:14 PM Interpretation: Performing Lab:[facility], [address] [place] [phone] Notes/Report: Sodium 144 135-145 mmol/L Potassium 3.9 3.3-5.1 mmol/L Chloride 112 96-108 mmol/L Carbon Dioxide 26 22-29 mmol/L Anion Gap 10 12-20 Blood Urea Nitrogen 15 9-16 mg/dL Creatinine 0.81 0.5-1.4 mg/dL Estimated Glomerular Filt Rate > 60 Chronic Kidney Disease: Estimated GFR < 60 mL/min/1.73m2 Severe Kidney Disease: Estimated GFR < 15 mL/min/1.73m2 Glucose Fasting 114 60-99 mg/dL A fasting glucose from 100-125 mg/dl is considered impaired (pre-diabetes). Calcium 9.2 8.4-10.2 mg/dL Bilirubin Total 0.3 0.0-1.0 mg/dL Aspartate Amino Transferase 23 5-31 U/L Alanine Aminotransferase 24 0-31 U/L Total Protein 7.4 6.5-8.0 g/dL Albumin Level 4.0 3.5-5.0 g/dL Alkaline Phosphatase 77 39-117 U/L Lipid Panel Reviewed date:10/18/2024 12:09:21 PM Interpretation: Performing Lab:[facility], [address] [place] [phone] Notes/Report: Triglycerides 266 <150 mg/dL Desirable Triglyceride: less than 150 mg/dL Borderline High Triglyceride 150-199 mg/dL High Triglyceride: 200-499 mg/dL Very High Triglyceride: greater than or equal to 5OO mg/dL Cholesterol 195 <200 mg/dL Desirable Cholesterol: less than 200 mg/dL Borderline High Cholesterol: 200-239 mg/dL High Cholesterol: greater than 239 mg/dL LDL Cholesterol Calculated 88 <100 mg/dL Desirable LDL: less than 100 mg/dL Near Optimal/Above Optimal LDL: 110-129 mg/dL Borderline High LDL: 130-159 mg/dL High LDL: 160-189 mg/dL Very High LDL: greater than or equal to 190 mg/dL HDL Cholesterol 54 >40 mg/dL Desirable HDL: greater than 40 mg/dL Note: This HDL assay may give artificially low results in patients with liver disease. UA ClnCatch+Micro w/rflx Cul t Reviewed date:10/18/2024 12:20:56 PM Interpretation: Performing Lab:[facility], [address] [place] [phone] Notes/Report: Urine, Clean Catch Color Urine Yellow Appearance Urine Clear PH 5.5 5.0-9.0 Glucose Urine UA Negative Negative mg/dL Urine Blood Negative Negative Specific [place] - Urine 1.020 1.005-1.025 Urine Protein Negative Neg-Trace mg/dL Urine Ketones Negative Negative mg/dL Nitrite Urine Negative Negative Leukocyte Esterase Urine Moderate (2+) Negative RBC Urine 0-2 0-2 /HPF WBC Urine 6-10 0-5 /HPF Squamous Epithelial Cell Urine 3-5 0-2 /HPF Bacteria Urine None Seen None Seen Hyaline Casts Urine 3-5 0-2 /LPF REASON FOR VISIT yearly faxing labs Encounters Encounter Location Date Provider Diagnosis Daniel Bragg MD [address] [place] [address] Drive [address] [place], [place] [phone] 10/18/2024 Daniel Bragg Blood tests for rout ine general physical examination Z00.00 and Pure hypercholesterolemia E78.00 Assessments Encounter Date Diagnosis (ICD Code) Assessment Notes Treatment Notes Treatment Clinical Notes Section Notes 10/18/2024 Blood tests for ed[place] webber general physical examination (ICD-10 - Z00.00) 10/18/2024 Pure hypercholesterolemia (ICD-10 - E78.00) Plan Of Treatment Next Appt Details Provider Name:Daniel Coates ier, 05/04/2025 07:45:00 AM, [address] [place] [address], [address], [phone], Provider Name:Daniel Coates ier, 10/20/2025 07:30:00 AM, [address] [place] [address], [place] [address], [place], [place], [phone], Provider Name:Daniel Coates ier, 10/27/2025 08:30:00 AM, [address] [place] [address], [address], [phone], Progress Notes * HENRY Samira LDOB: [birth year] (54 yo F)Acc No.[id number]:10/18/2024 Progress Note Patient: Samira TOSCANO Provider: Anisha Bragg MD :1970 A ge:54 Y S ex:Female Date:10/18/2024 Address:[address] [place], [place] [phone] Subjective: * Chief Complaints: * 1 . Yearly faxing labs. * Medical History: Objective: * Vitals: Assessment: * Assessment: 1. B lood tests for routine general physical examination - Z00.00 (Primary) 2 .?Pure hypercholesterolemia - E78.00 Plan: * Treatment: 2. P ure hypercholesterolemia L AB: Complete Blood Count Auto Diff (Collection Date & Time - 10/18/2024 07:15 AM) L AB: Comprehensive [place]. Panel Fast (Collection Date & Time - 10/18/2024 07:15 AM) L AB: Lipid Panel (Collection Date & Time - 10/18/2024 07:15 AM) L AB: UA ClnCatch+Micro w/rflx Cult (Collection Date & Time - 10/18/2024 07:15 AM) * Procedure Codes: 3 6415 VENIPUNCT, ROUTINE* * * The named appointment provid er may or may not be the originator of this progress note, and it is not deemed complete until electronically signed by the appointment provider. Sign off status: Pending * Provider: Anisha Bragg MD Date: 0 10/18/2024 Generated for Steve ramírez/Sisi/Hardikitting on: 0 04/25/2025 02:11 PM EDT
--- OUTSIDE RECORDS SUMMARY | 2024-10-25 06:00 | XMS_ITS ---
Author Organization Daniel Bragg MD Address [address] [place] [phone] Care Team Providers Care Straightening Press Operator Helper Name Role Phone Daniel Bragg Primary Care Provider [phone] Allergies Allergen (clinical drug ingredient) Drug/Non Drug Allergy documented on EMR Reaction Allergy Type Onset Date Status penicillin G Penicillin G Sodium Unknown Drug Allergy Active cephalexin Cephalexin Unknown Drug Allergy Activ e amoxicillin Amoxicillin anaphylaxis Drug Allergy A ctive REASON FOR VISIT annual visit Medications Medication SIG (Take, Route, Frequency, Duration) Notes Start Date End Date Status Singulair 10 MG 1 tablet Orally Once a day for 30 day(s) Not-Taking Ibuprofen 800 MG 1 tablet Orally Thre e times a day for 30 day(s) 09/28/2012 Not-Taking Albuterol Sulfate HFA 108 (90 Base) MCG/ACT 2 puffs as needed Inhalation every 4 hrs Not-Takin g Trelegy Ellipta 200-62.5-25 MCG/INH 1 puff Inhalation Once a day Active Rosuvastatin Calcium 40 MG take 1 tablet by mouth daily Orally Once a day Active ZyrTEC Allergy 10 MG 1 tablet Orally Onc e a day Active Omeprazole 20 MG 1 capsule 30 minutes before morning meal Orally Once a day for 30 day(s) Active Dupixent 200 MG/1.14ML as directed Subcutaneous Not-Taking Dupixent 200 MG/1.14ML as directed Subcutaneous Not-Taking Social History Tobacco Use: Social History Observation Description Date Details (start date - stop date) Former Smoker NA - NA Tobacco Use/Smoking Question Answer Notes Patient is a former smoker How long has it been since y ou last smoked? 1-5 years Additional Findings: Tobacco Non-User Fo rmer smoker, currently using no form of tobacco Alcohol Screen Question Answer Notes Did you have a drink contain ing alcohol in the past year? Yes How often did you have a dri nk containing alcohol in the past year? 2 to 4 times a month (2 points) How many drinks did you have on a typical day when you were drinking in the past year? 1 or 2 drinks (0 point) How often did you have 6 or more drinks on one occasion in the past year? Never (0 point) Points 2 Interpretation Negative Vital Signs Blood pressure systolic 132 mm Hg 10/26/19 25 Blood pressure diastolic 80 mm Hg 025 Height 64 in 10/25/2024 Weight 208 lbs 10/25/2024 BMI 35.7 kg/m2 10/25/2024 weight is up 3 pounds since 03-31-24 Encounters Encounter Location Date Provider Diagnosis Daniel Bragg MD [address] [place] [address] [place] [phone] 10/25/2024 Daniel Bragg Annual physical exam Z00.00 ; Seasonal allergic rhinitis due to pollen J30.1 ; Pure hypercholesterolemia E78.00 ; Panlobular emphysema J43.1 and Depression screening Z13.31 Assessments Encounter Date Diagnosis (ICD Code) Assessment Notes Treatment Notes Treatment Clinical Notes Section Notes 10/25/2024 Annual physical exam (ICD-10 - Z00.00) labs reviewed and discussed with patient, is going to work on diet and considring weight loss meds. 10/25/2024 Seasonal allergic rhinitis due to pollen (ICD-10 - J30.1) is going to see dr burk 10/25/2024 Pure hypercholesterolemia (ICD-10 - E78.00) stable, will contiue current regiment 10/25/2024 Panlobular emphysema (ICD-10 - J43.1) stable, will contiue current regiment 10/25/2024 Depression screening (ICD-10 - Z13.31) negative screen Plan Of Treatment Medication Medication Name Sig Start Date Stop Date Notes Trelegy Ellipta 200-62.5-25 MCG/INH 1 puff Inhalation Once a day Rosuvastatin Calcium 40 MG take 1 tablet by mouth daily Orally Once a day Treatment Notes Assessment Notes Annual physical exam labs reviewed and d iscussed with patient, is going to work on diet and considring weight loss meds. Seasonal allergic rhinitis due to pollen is going to see dr burk Pure hypercholesterolemia stable, will c ontiue current regiment Panlobular emphysema stable, will contiu e current regiment Depression screening negative screen Next Appt Details Follow Up: 6 Months, Reason: Provider Name:Daniel montero, 05/04/2025 07:45:00 AM, [address] [place] [address], [address], [phone], Provider Name:Daniel montero, 10/20/2025 07:30:00 AM, [address] [place] [address], [address], [phone], Provider Name:Daniel montero, 10/27/2025 08:30:00 AM, [address] [place] [address], [address], [phone], Progress Notes * Samira FIGUEROA LDOB: [birth year] (54 yo F)Acc No.[id number]:10/25/2024 Progress Notes Patient: Samira TOSCANO Provider: Anisha Bragg MD :1970 A ge:54 Y S ex:Female Date:10/25/2024 Address:[address] [place], [place] [phone] Subjective: * Chief Complaints: * A nnual visit * HPI: D epression Screening: PHQ-9 L ittle interest or pleasure in doing things N ot at all, F eeling down, depressed, or hopeless N ot at all, T rouble falling or staying asleep, or sleeping too much N ot at all, F eeling tired or having little energy N ot at all, P oor appetite or overeating N ot at all, F eeling bad about yourself or that you are a failure, or have let yourself or your family down N ot at all, T rouble concentrating on things, such as reading the newspaper or watching television N ot at all, M oving or speaking so slowly that other people could have noticed; or the opposite, being so fidgety or restless that you have been moving around a lot more than usual N ot at all, T houghts that you would be better off or of hurting yourself in some way N ot at all, T otal Score 0 . I nterpretation and Intervention D epression Screening Findings N egative, F ollow-Up for Depression : review of PHQ-9 found negative result, no follow-up needed. C ommunication Needs: Communication Needs D oes the patient have a hearing impairment N o, D oes the patient have a vision impairment? Y es, I f yes, what is the vision impairment? G lasses, D oes the patient have a cognition impairment? N o. S CHRISTINA Questions: SDOH Questions I n the past year have you been worried about losing housing? N o, I n the past year have you or any family members you live with been unable to get any of the following when it was really needed? Check all that apply: N one. S ymptom(s): patient is a 54 yo female here for annual visit with review of recent labs and follow up of chronic issues.having a lot of problems with allergies and had been on dupiximet but insurance said no./ when walking with bare feet gets occasional nerve jolt on top of foot. * ROS: G eneral/Constitutional: Change in appetite d enies. C hills d enies. F ever d enies. O phthalmologic: Blurred vision d enies. D ischarge d enies. P ain d enies. E NT: Decreased hearing d enies. S ore throat d enies.?Swollen glands d enies. E ndocrine: Cold intolerance d enies. E xcessive thirst d enies. H eat intolerance d enies. W eight loss d enies. R espiratory: Cough d enies. S hortness of breath at rest d enies. S hortness of breath with exertion d enies. W heezing d enies. C ardiovascular: Chest pain at rest d enies. C hest pain with exertion?denies. I rregular heartbeat d enies. S hortness of breath d enies. ? G astrointestinal: Abdominal pain d enies. C hange in bowel habits d enies. D iarrhea d enies. N ausea d enies. R ectal bleeding d enies. V omiting d enies . G enitourinary: Blood in urine d enies. D ifficulty urinating d enies. F requent urination d enies. U rinary incontinence D enies. M usculoskeletal: Painful joints d enies. W eakness d enies. ? S kin: Dry skin d enies. I tching d enies. D enies?Mole(s), changes in moles, new moles or any lesions of concern. D enies P hotosensitivity. R mc d enies. N eurologic: Dizziness d enies. F ainting d enies. H eadache?denies. * Medical History: * Surgical History: * Hospitalization/Major Diagno stic Procedure: * Family History: F ather: alive 73 yrs, diagnosed with Hypertension. M other: alive 77 yrs. 1 brother(s) , 1 sister(s) - healthy. 1 daughter(s) - healthy. . Denies mental health/substance abuse family history, Denies mental health/substance abuse family history, No pertinent family medical history, Denies mental health/substance abuse family history. * Social History: T obacco Use: T obacco Use/Smoking P atient is a f ormer smoker, H ow long has it been since you last smoked? 1 -5 years, A dditional Findings: Tobacco Non-User F ormer smoker, currently using no form of tobacco. D rugs/Alcohol: A lcohol Screen D id you have a drink containing alcohol in the past year? Y es, H ow often did you have a drink containing alcohol in the past year? 2 to 4 times a month (2 points), H ow many drinks did you have on a typical day when you were drinking in the past year? 1 or 2 drinks (0 point), H ow often did you have 6 or more drinks on one occasion in the past year? N ever (0 point), P oints 2 , I nterpretation N egative. M iscellaneous: C affeine: yes, frequency:, 2-3 cups per day. Children: yes. Exercise: yes, walking 3-4 lorenza 2 times a week. Home smoke detector use: yes. Housing: owning. Living with: spouse. Marital status: . Occupation: weeks/months/years, works full- time. Pets: cats: dogs:1 cat. Travel outside of the [place]: yes, [place]. * Medications: T akingOmeprazole 20 MG Capsule Delayed Release 1 capsule 30 minutes before morning meal Orally Once a day ZyrTEC Allergy 10 MG Tablet 1 tablet Orally Once a day Rosuvastatin Calcium 40 MG Tablet take 1 tablet by mouth daily Orally Once a day Trelegy Ellipta 200-62.5-25 MCG/INH Aerosol Powder Breath Activated 1 puff Inhalation Once a day Taking Omeprazole 20 MG Capsule Delayed Release 1 capsule 30 minutes before morning meal Orally Once a day Taking ZyrTEC Allergy 10 MG Tablet 1 tablet Orally Once a day Taking Rosuvastatin Calcium 40 MG Tablet take 1 tablet by mouth daily Orally Once a day Taking Trelegy Ellipta 200-62.5-25 MCG/INH Aerosol Powder Breath Activated 1 puff Inhalation Once a day Not-Taking/PRNDupixent 200 MG/1.14ML Solution Pen-injector as directed Subcutaneous Dupixent 200 MG/1.14ML Solution Pen-injector as directed Subcutaneous Singulair 10 MG Tablet 1 tablet Orally Once a day Ibuprofen 800 MG Tablet 1 tablet Orally Three times a day Albuterol Sulfate HFA 108 (90 Base) MCG/ACT Aerosol Solution 2 puffs as needed Inhalation every 4 hrs Medication List reviewed and reconciled with the patientNot-Taking/PRN Dupixent 200 MG/1.14ML Solution Pen-injector as directed Subcutaneous Not-Taking/PRN Dupixent 200 MG/1.14ML Solution Pen-injector as directed Subcutaneous Not-Taking/PRN Singulair 10 MG Tablet 1 tablet Orally Once a day Not-Taking/PRN Ibuprofen 800 MG Tablet 1 tablet Orally Three times a day Not-Taking/PRN Albuterol Sulfate HFA 108 (90 Base) MCG/ACT Aerosol Solution 2 puffs as needed Inhalation every 4 hrs Medication List reviewed and reconciled with the patient * Allergies: A moxicillin: anaphylaxisPenicillin G SodiumCephalexinyes[Allergies Verified] Objective: * Vitals: H t: 64, Wt: 208, BMI:35.7, BP:132/80, Wt-k.35. weight is up 3 pounds since 03-31-24. * P ast Orders: L ab:Complete Blood Count Auto Diff (Order Date - 10/18/2024) (Collection Date & Time - 10/18/2024 07:15 AM) Value Reference Range White Blood Count 7.3 4.8-10.8 - X10*3/uL Red Blood Count 5.20 4.20-5.50 - X10*6/uL Hemoglobin 14.1 12.0-16.0 - g/dl Hematocrit 44.9 37.0-47.0 - % Mean Corpuscular Volume 86.3 80.0-98.0 - fL Mean Corpuscular Hemoglobin 27.1 27.0-33.0 - pg Mean Corpuscular HGB Conc 31.4 31.0-35.0 - g/ dl Red Cell Distribution Width 14.5 11.0-16.0 - % Platelet Count 250 160-400 - X10*3/uL Mean Platelet Volume 12.5 H 9.4-12.3 - fL Neutrophils Percent Auto 53.4 45-73 - % Imm Gran Pct Auto 0.5 H 0.0-0.4 - % Lymphocytes Percent Auto 30.8 20-40 - % Monocytes Percent Auto 7.4 2-11 - % Eosinophils Percent Auto 7.1 H 0-4 - % Basophils Percent Auto 0.8 0-2 - % NRBC Pct Auto 0.0 0.0-0.2 - /100WBC Neutrophils Absolute Auto 3.9 2.0-8.3 - x10* 3/uL Imm Gran Abs Auto 0.04 H 0.00-0.03 - X10*3/uL Lymphocytes Absolute Auto 2.3 1.2-4.9 - X10* 3/uL Monocytes Absolute Auto 0.5 0.1-1.2 - X10*3/ uL Eosinophils Absolute Auto 0.5 H 0.0-0.4 - X10* 3/uL Basophils Absolute Auto 0.1 0.0-0.2 - X10*3/ uL NRBC Abs Auto 0.000 0.0-0.012 - X10*3/uL L ab:Comprehensive [place]. Panel Fast (Order Date - 10/18/2024) (Collection Date & Time - 10/18/2024 07:15 AM) Value Reference Range Sodium 144 135-145 - mmol/L Bilirubin Total 0.3 0.0-1.0 - mg/dL Aspartate Amino Transferase 23 5-31 - U/L Alanine Aminotransferase 24 0-31 - U/L Total Protein 7.4 6.5-8.0 - g/dL Albumin Level 4.0 3.5-5.0 - g/dL Alkaline Phosphatase 77 39-117 - U/L Potassium 3.9 3.3-5.1 - mmol/L Chloride 112 H 96-108 - mmol/L Carbon Dioxide 26 22-29 - mmol/L Anion Gap 10 L 12-20 - Blood Urea Nitrogen 15 9-16 - mg/dL Creatinine 0.81 0.5-1.4 - mg/dL Estimated Glomerular Filt Rate > 60 - Glucose Fasting 114 H 60-99 - mg/dL Calcium 9.2 8.4-10.2 - mg/dL L ab:Lipid Panel (Order Date - 10/18/2024) (Collection Date & Time - 10/18/2024 07:15 AM) Value Reference Range Triglycerides 266 H <150 - mg/dL Cholesterol 195 <200 - mg/dL LDL Cholesterol Calculated 88 <100 - mg/dL HDL Cholesterol 54 >40 - mg/dL L ab:UA ClnCatch+Micro w/rflx Cult (Order Date - 10/18/2024) (Collection Date & Time - 10/18/2024 07:15 AM) Value Reference Range Color Urine Yellow - Appearance Urine Clear - PH 5.5 5.0-9.0 - Glucose Urine UA Negative Negative - mg/dL Urine Blood Negative Negative - Specific [place] - Urine 1.020 1.005-1.025 - Urine Protein Negative Neg-Trace - mg/dL Urine Ketones Negative Negative - mg/dL Nitrite Urine Negative Negative - Leukocyte Esterase Urine Moderate (2+) A Negative - RBC Urine 0-2 0-2 - /HPF WBC Urine 6-10 A 0-5 - /HPF Squamous Epithelial Cell Urine 3-5 0-2 - /HP F Bacteria Urine None Seen None Seen - Hyaline Casts Urine 3-5 0-2 - /LPF L ab:Urine Culture (Order Date - 10/18/2024) (Collection Date & Time - 10/18/2024) Value Reference Range Urine Culture < 10,000 cfu/ml - * Examination: G eneral Examination: GENERAL APPEARANCE: w ell developed, well nourished, in no acute distress. HEAD: n ormocephalic, atraumatic. EYES: p upils equal, round, reactive to light and accommodation, sclera non-icteric. EARS: n ormal. ORAL CAVITY: m ucosa moist. THROAT: c lear. NECK/THYROID: n sharita supple, full range of motion, no cervical lymphadenopathy, no bruits. SKIN: w arm and dry, no suspicious lesions. HEART: r egular rate and rhythm, S1, S2 normal, no murmurs.? LUNGS: c lear to auscultation bilaterally. BREASTS: N o mass, no lump. ABDOMEN: s oft, nontender, nondistended, bowel sounds present, normal, no organomegaly , no masses palpable. RECTAL EXAM: d one by ob/gyn physician. FEMALE GENITOURINARY: d one by ob/gyn physician. EXTREMITIES: n o clubbing, cyanosis, or edema. NEUROLOGIC: n onfocal, motor strength normal upper and lower extremities, sensory exam intact. Assessment: * Assessment: 1. A nnual physical exam - Z00.00 (Primary) 2 . S easonal allergic rhinitis due to pollen - J30.1 3 . P ure hypercholesterolemia - E78.00 4 . P anlobular emphysema - J43.1 5 . D epression screening - Z13.31 ? Plan: * Treatment: 2. S easonal allergic rhinitis due to pollen Notes: is going to see dr burk 3. P ure hypercholesterolemia Continue Rosuvastatin Calcium Tablet, 40 MG, take 1 tablet by mouth daily, Orally, Once a day. Notes: stable, will contiue current regiment 4. P anlobular emphysema Continue Trelegy Ellipta Aerosol Powder Breath Activated, 200-62.5-25 MCG/INH, 1 puff, Inhalation, Once a day. Notes: stable, will contiue current regiment 5. D epression screening Notes: negative screen * Procedure Codes: * Follow Up: 6 Months * * Sign off status: Completed true * Provider: Anisha Bragg MD Date: 0 10/25/2024 Generated for Steve ramírez/Sisi/Mariebllransmitting on: 0 04/25/2025 02:11 PM EDT History and Physical Notes * HPI (History of Present Illness) Category Sub-Category Detail Notes Category Not es Symptom(s) patient is a 54 yo female here for annual visit with review of recent labs and follow up of chronic issues.having a lot of problems with allergies and had been on dupiximet but insurance said no./ when walking with bare feet gets occasional nerve jolt on top of foot Depression Screening PHQ-9 Little inte rest or pleasure in doing things: Not at all Feeling down, depressed, or hopeless: No t at all Trouble falling or staying asleep, or sl eeping too much: Not at all Feeling tired or having little energy: N ot at all Poor appetite or overeating: Not at all Feeling bad about yourself o r that you are a failure, or have let yourself or your family down: Not at all Trouble concentrating on thi ngs, such as reading the newspaper or watching television: Not at all Moving or speaking so slowly that other people could have noticed; or the opposite, being so fidgety or restless that you have been moving around a lot more than usual: Not at all Thoughts that you would be b macey off or of hurting yourself in some way: Not at all Total Score: 0 Interpretation and Intervention Depression Ramirez garay Findings: Negative Follow-Up for Depression: : review of PH Q-9 found negative result, no follow-up needed SDOH Questions SDOH Questions In the past year have you been worried about losing housing?: No In the past year have you or any family members you live with been unable to get any of the following when it was really needed? Check all that apply:: None Communication Needs Communication Needs Does the patient have a hearing impairment: No Does the patient have a vision impairmen t?: Yes If yes, what is the vision impairment?: Glasses Does the patient have a cognition impair ment?: No Examination Category Sub-Category Detail Notes Category Not es General Examination GENERAL APPEARANCE: well dev eloped, well nourished, in no acute distress HEAD: normocephalic, atrau matic EYES: pupils equal, round, reactive to light and accommodation, sclera non-icteric EARS: normal THROAT: clear NECK/THYROID: neck supple, full ra nge of motion, no cervical lymphadenopathy, no bruits HEART: regular rate and rhy thm, S1, S2 normal, no murmurs LUNGS: clear to auscultatio n bilaterally ABDOMEN: soft, nontender, non distended, bowel sounds present, normal, no organomegaly , no masses palpable NEUROLOGIC: nonfocal, motor stre ngth normal upper and lower extremities, sensory exam intact SKIN: warm and dry, no ashley picious lesions EXTREMITIES: no clubbing, cyanosi s, or edema BREASTS: No mass, no lump RECTAL EXAM: done by ob/gyn physician FEMALE GENITOURINARY: done by ob/gyn physician ORAL CAVITY: mucosa moist
--- OUTSIDE RECORDS SUMMARY | 2024-10-31 10:40 | XMS_ITS ---
Author Organization Daniel Bragg MD Address [address] [place] [phone] Care Team Providers Care Completions Manager Name Role Phone Daniel Bragg Primary Care Provider [phone] REASON FOR VISIT [place] eye Medications Medication SIG (Take, Route, Frequency, Duration) Notes Start Date End Date Status Ocuflox 0.3 % 2 drops in affected eye Ophthalmic 4 times a day for 7 days 10/31/2024 Active Encounters Encounter Location Date Provider Diagnosis Daniel Bragg MD [address] [place] [phone] 10/31/2024 Daniel Bragg Plan Of Treatment Medication Medication Name Sig Start Date Stop Date Notes Ocuflox 0.3 % 2 drops in affected eye Ophthalmic 4 times a day for 7 days 10/31/2024 Next Appt Details Provider Name:Daniel montero, 05/04/2025 07:45:00 AM, [address], Suite [facility], [place], [place], [phone], Provider Name:Daniel Coates ier, 10/20/2025 07:30:00 AM, [address], Suite [facility], [place], [place], [phone], Provider Name:Daniel Coates ier, 10/27/2025 08:30:00 AM, [address], [address], [place], [place], [phone], Progress Notes * Samira FIGUEROA LDOB: [birth year] (54 yo F)Acc No.[id number]:10/31/2024 Patient: Lorri TOSCANOniamina Dominguez :1970 A ge:54 Y S ex:Female Address:[address] [place] [phone] * Refills Start Ocuflox Solution, 0.3 %, Ophthalmic, 2.8 ML, 2 drops in affected eye, 4 times a day, 7 days * true * Date: Generated for Steve ramírez/Sisi/eTransmitting on: 0 04/25/2025 02:12 PM EDT
--- OUTSIDE RECORDS SUMMARY | 2025-04-20 11:28 | XMS_ITS ---
Author Organization Daniel Bragg MD Address [address] [place] [phone] Care Team Providers Care Brake Reliner Name Role Phone Daniel Bragg Primary Care Provider REASON FOR VISIT rf Rosuvastatin Medications Medication SIG (Take, Route, Frequency, Duration) Notes Start Date End Date Status Rosuvastatin Calcium 40 MG TAKE 1 TABLET BY MOUTH DAILY for 90 Active Encounters Encounter Location Date Provider Diagnosis Daniel Bragg MD [address] [place] [phone] 04/20/2025 Daniel Bragg Pure hypercholestero lemia E78.00 Assessments Encounter Date Diagnosis (ICD Code) Assessment Notes Treatment Notes Treatment Clinical Notes Section Notes 04/20/2025 Pure hypercholesterolemia (ICD-10 - E78.00) Plan Of Treatment Medication Medication Name Sig Start Date Stop Date Notes Rosuvastatin Calcium 40 MG TAKE 1 TABLET BY MOUTH DAILY for 90 Next Appt Details Provider Name:Daniel montero, 05/04/2025 07:45:00 AM, [address] [place] [address], [address], [phone], Provider Name:Daniel Coates kylah, 10/20/2025 07:30:00 AM, [address] [place] [address], [place] [address], [place], [place], [phone], Provider Name:Daniel Coates kylah, 10/27/2025 08:30:00 AM, [address] [place] [address], [place] [address], [place], [place], [phone], Progress Notes * Samira FIGUEROA LDOB: [birth year] (54 yo F)Acc No.[id number]:04/20/2025 Patient: Anisha AJITPasqualeSamira :1970 A ge:54 Y S ex:Female Address:[address] [place] [id number] * Refills Refill Rosuvastatin Calcium Tablet, 40 MG, 90 Tablet, TAKE 1 TABLET BY MOUTH DAILY, 90, Refills=3 * true * Date: Generated for Steve ramírez/Sisi/eTransmitting on: 0 04/25/2025 02:12 PM EDT
--- OUTSIDE RECORDS SUMMARY | 2025-04-25 03:15 | XMS_ITS ---
Author Organization Daniel Bragg MD Address [address] [place], [place] [phone] Care Team Providers Care Esl Teacher Name Role Phone Daniel Bragg Primary Care Provider [phone] Results Component Value Reference Range Notes Liver Panel (Not yet reviewe d by provider) Interpretation: Performing Lab:[facility], [address] [place] [phone] Notes/Report: Bilirubin Total 0.2 0.0-1.0 mg/dL Bilirubin Direct < 0.2 0.0-0.5 mg/dL Aspartate Amino Transferase 31 5-31 U/L Alanine Aminotransferase 24 0-31 U/L Total Protein 7.0 6.5-8.0 g/dL Albumin Level 4.2 3.5-5.0 g/dL Alkaline Phosphatase 64 39-117 U/L Lipid Panel with Reflex (Not yet reviewed by provider) Interpretation: Performing Lab:[facility], [address] [place] [phone] Notes/Report: Triglycerides 98 <150 mg/dL Desirable Triglyceride: less than 150 mg/dL Borderline High Triglyceride 150-199 mg/dL High Triglyceride: 200-499 mg/dL Very High Triglyceride: greater than or equal to 5OO mg/dL Cholesterol 224 <200 mg/dL Desirable Cholesterol: less than 200 mg/dL Borderline High Cholesterol: 200-239 mg/dL High Cholesterol: greater than 239 mg/dL LDL Cholesterol Calculated 153 <100 mg/dL Desirable LDL: less than 100 mg/dL Near Optimal/Above Optimal LDL: 110-129 mg/dL Borderline High LDL: 130-159 mg/dL High LDL: 160-189 mg/dL Very High LDL: greater than or equal to 190 mg/dL HDL Cholesterol 52 >40 mg/dL Desirable HDL: greater than 40 mg/dL Note: This HDL assay may give artificially low results in patients with liver disease. REASON FOR VISIT fasting lipids Encounters Encounter Location Date Provider Diagnosis Daniel Bragg MD [address] [place] [phone] 04/25/2025 Daniel Bragg Pure hypercholestero lemia E78.00 Assessments Encounter Date Diagnosis (ICD Code) Assessment Notes Treatment Notes Treatment Clinical Notes Section Notes 04/25/2025 Pure hypercholesterolemia (ICD-10 - E78.00) Plan Of Treatment Pending Test Test Name Order Date Liver Panel 04/25/2025 Lipid Panel with Reflex 04/25/2025 Next Appt Details Provider Name:Daniel montero, 05/04/2025 07:45:00 AM, [address] [place] [address], [phone], Provider Name:Daniel montero, 10/20/2025 07:30:00 AM, [address] [place] [address], [address], [phone], Provider Name:Daniel montero, 10/27/2025 08:30:00 AM, [address] [place] [address], [phone], Progress Notes * Samira FIGUEROA LDOB: [birth year] (54 yo F)Acc No.[id number]:04/25/2025 Progress Note Patient: Anisha AJITPasqualeSamira Provider: Anisha Bragg MD :1970 A ge:54 Y S ex:Female Date:04/25/2025 Address:[address] [place] [address], Claudy ferris [id number] Subjective: * Chief Complaints: * 1 . Fasting lipids. * Medical History: Objective: * Vitals: Assessment: [...] Pending * Provider: Anisha Bragg MD Date: 04/25/2025 Generated for Steve ramírez/Sisi/Hardikitting on: 04/25/2025 02:11 PM EDT
[2025-04-25 13:37] LABS: Alanine Aminotransferase 24 U/L (0-31); Albumin Level 4.2 g/dL (3.5-5.0); Alkaline Phosphatase 64 U/L (39-117); Aspartate Amino Transferase 31 U/L (5-31); Cholesterol 224 mg/dL (<200); HDL Cholesterol 52 mg/dL (>40); Total Protein 7.0 g/dL (6.5-8.0); Triglycerides 98 mg/dL (<150)
[2025-04-25 13:48] LABS: Reflex LDLD? No
--- OUTSIDE RECORDS SUMMARY | 2025-04-25 14:12 | XMS_ITS | Patient Health Record ---
Author Organization Daniel Bragg MD Address [address] [place], [place] [id number] Care Team Providers Care Entertainment Director Name Role Phone Daniel Bragg Primary Care Provider Allergies Allergen (clinical drug ingredient) Drug/Non Drug Allergy documented on EMR Reaction Allergy Type Onset Date Status penicillin G Penicillin G Sodium Unknown Drug Allergy Active cephalexin Cephalexin Unknown Drug Allergy Activ e amoxicillin Amoxicillin anaphylaxis Drug Allergy A ctive Results Component Value Reference Range Notes Liver Panel Reviewed date:06/21/2024 08:13:23 PM Interpretation: Performing Lab:[facility], [address] [place] [phone] Notes/Report: Bilirubin Total 0.3 0.0-1.0 mg/dL Bilirubin Direct 0.2 0.0-0.5 mg/dL Aspartate Amino Transferase 23 5-31 U/L Alanine Aminotransferase 24 0-31 U/L Total Protein 7.0 6.5-8.0 g/dL Albumin Level 4.1 3.5-5.0 g/dL Alkaline Phosphatase 71 39-117 U/L Lipid Panel with Reflex Reviewed date:06/21/2024 08:13:15 PM Interpretation: Performing Lab:[facility], [address] [place] [phone] Notes/Report: Triglycerides 123 <150 mg/dL Desirable Triglyceride: [...] ff Reviewed date:10/18/2024 12:20:03 PM Interpretation: Performing Lab:[facility], [address] [place] [phone] Notes/Report: White Blood Count 7.3 4.8-10.8 X10*3/uL [...] NRBC Abs Auto 0.000 0.0-0.012 X10*3/uL Comprehensive [place]. Panel Fa st Reviewed date:10/18/2024 12:43:14 PM Interpretation: Performing Lab:[facility], [address] [place] [phone] Notes/Report: Sodium 144 135-145 mmol/L Potassium 3.9 [...] Panel Reviewed date:10/18/2024 12:09:21 PM Interpretation: Performing Lab:[facility], [address] [place] [phone] Notes/Report: Triglycerides 266 <150 mg/dL Desirable Triglyceride: [...] t Reviewed date:10/18/2024 12:20:56 PM Interpretation: Performing Lab:[address] [phone] Notes/Report: Urine, Clean Catch Color Urine Yellow Appearance Urine Clear PH 5.5 5.0-9.0 Glucose Urine UA Negative Negative mg/dL Urine Blood Negative Negative Specific [place] - Urine 1.020 1.005-1.025 Urine Protein Negative Neg-Trace mg/dL Urine Ketones Negative Negative mg/dL Nitrite Urine Negative Negative Leukocyte Esterase Urine Moderate (2+) Negative RBC Urine 0-2 0-2 /HPF WBC Urine 6-10 0-5 /HPF Squamous Epithelial Cell Urine 3-5 0-2 /HPF Bacteria Urine None Seen None Seen Hyaline Casts Urine 3-5 0-2 /LPF Liver Panel (Not yet review ed by provider) Interpretation: Performing Lab:[address] [phone] Notes/Report: Bilirubin Total 0.2 0.0-1.0 mg/dL Bilirubin Direct < 0.2 0.0-0.5 mg/dL Aspartate Amino Transferase 31 5-31 U/L Alanine Aminotransferase 24 0-31 U/L Total Protein 7.0 6.5-8.0 g/dL Albumin Level 4.2 3.5-5.0 g/dL Alkaline Phosphatase 64 39-117 U/L Lipid Panel with Reflex (Not yet reviewed by provider) Interpretation: Performing Lab:[facility] [address] [place] [address] Notes/Report: Triglycerides 98 <150 mg/dL Desirable Triglyceride: [...] low results in patients with liver disease. Pathology Reviewed date:06/20/2024 04:52:39 PM Interpretation: Performing Lab:[facility], [address] [place] [address] Notes/Report: ------- Name: Samira Moreira Age/Sex: 53/F : 1970 Unit#: [id number] Attend Dr: Luma Diaz MD Re06/16/24 Status : [facility] Location: [facility] Disch: ------- SPEC : [id number] RECD : 06/16/24 STATUS: RENEE PATEL NUM: [id number] CAMPBELL: 06/16/[address] [facility] [address]: Luma Diaz MD ENTERED: 06/16/24- 43 SP TYPE: Surgical OTHR DR: Daniel [...] Samira Moreira Age/Sex: 53/F : 1970 Unit#: [id number] Attend Dr: Luma Diaz MD Re06/16/24 Status : [facility] Location: [facility] Disch: ------- SPEC : [id number] RECD : 06/16/24-1233 STATUS: RENEE PATEL NUM: [id number] CAMPBELL: 06/16/24-[address] [facility] [address]: Luma Diaz MD ENTERED: 06/16/24-12 [...] In one study (Winston et al. PMID [id number]), the number of mast cells per high-power [...] , among other etiologies (Cj, etal. PMID 76482568). Correlation with the patient's c linical presentation [...] Samira Moreira Age/Sex: 53/F : 1970 Unit#: [id number] Attend Dr: Luma Diaz MD Re06/16/24 Status : [facility] Location: [facility] Disch: ------- SPEC : [id number] RECD : 06/16/24-123 STATUS: RENEE PATEL NUM: [id number] CAMPBELL: 06/16/24-[address] [facility] [address]: Luma Diaz MD ENTERED: 06/16/24-12 [...] To: Daniel Bragg MD [facility] [address] [place] [phone] CONTINUED ON NEXT PAGE ------- Name: Samira Moreira Age/Sex: 53/F : 1970 Unit#: [id number] Attend Dr: Luma Diaz MD Re06/16/24 Status : [facility] [place] Location: [facility] Disch: ------- SPEC : [id number] RECD : 06/16/24-1233 STATUS: RENEE PATEL NUM: [id number] CAMPBELL: 06/16/24-[address] [facility] [address]: Luma Diaz MD ENTERED: 06/16/24-12 43 SP TYPE: Surgical OTHR DR: Daniel Bragg MD ORDERED: HE Stain/ , Gross Micro L4/8, [place] red/8, IHC/9, Special st. 2, H. pylori, CD117/8, AB/PAS/2 Copies To: (Continued) Luma Diaz MD [facility] [address] [place] [address] ------- Signed (si gnature on file) Daisha Oconnor MD 06/20/24 1325 ------- END OF REPORT Raudel Tan Reviewed date:06/21/2024 08:13:07 PM Interpretation: Performing Lab:[facility], [address] [place] [phone] Notes/Report: Raudel Tan See Note Specimen held untested for 24 hours; Call to request Chemistry testing. Urine Culture Reviewed date:10/19/2024 03:25:34 PM Interpretation: Performing Lab:[facility], [address] [place] [phone] Notes/Report: Urine Culture Report Result Urine Culture < 10,000 cfu/ml MM tomosynthesis screening B I Reviewed date:11/25/2024 03:55:43 PM Interpretation: Performing Lab: Notes/Report: [address] [place] [address] Mammography Report Signed Patient: Samira Moreira MR#: [id number] 00 : 1970 Acct:[id number] Age/Sex: 54 / F ADM Date: 11/14/24 Loc: HO.MAMMO Attending Dr: Daniel Bragg MD Ordering Physician: Daniel Bragg MD Results: 2Be nign Findings Date of Service: 11/14/24 Follow Up: 1 Year From Orig ina Mammogram Procedure(s): MM tomosynthesis screening BI Accession Number(s): [id number] cc: Daniel Bragg MD EXAMINATION: MM SCREENING [...] 11/25/24 0955 DD/ 1500 TD/TT: 11/14/24 1518 [employer] Kiss Maker: [address] [place] [address] Mammography Report Signed Patient: Nadia Moreira MR#: [id number] 00 : 1970 Acct:[id number] Age/Sex: 54 / F ADM Date: 11/14/24 Loc: HO.MAMMO Attending Dr: Daniel Bragg MD Ordering Physician: Daniel Bragg MD Results: 2Be nign Findings Date of Service: Follow Up: 1 Year From Orig inal Mammogram Procedure(s): MM tomosynthesis screening BI Accession Number(s): [id number] cc: Daniel Bragg MD EXAMINATION: MM SCREENING [...] Dictated By: Claire Justin DO Signed By: <Electron ically signed by Claire Justin DO in OV> 11/25/24 0955 DD/ 1500 TD/TT: 11/14/24 1518 Sea Foam Kiss Maker: CT lung screening Reviewed date:04/13/2025 12:09:08 PM Interpretation: Performing Lab: Notes/Report: [address] [address] [address] Scan Report Signed Patient: Samira Moreira MR#: [id number] 00 : 1970 Acct:[id number] Age/Sex: 54 / F ADM Date: 04/13/25 Loc: HO.CT Attending Dr: Skye Bañuelos PA-C Ordering Physician: Skye Bañuelos PA-C Date of Service: 04/13/25 Procedure(s): CT lung screening Accession Number(s): [id number] cc: Daniel Bragg MD; Skye Bañuelos PA-C Report Number: [id number]: Total DLP = 54.00 mGy-cm Reason for Exam: Z.89 - Personal history of nicotine dependence EXAMINATION: CT LUNG SCREENING HISTORY: Z.891 - Personal history of nicotine dependence TECHNIQUE: Low dose axial images were obtained from the sternal notch to upper abdomen without IV contrast per standard departmental protocol. Sagittal and coronal reformatted images were also obtained and reviewed. One or more of the following techniques was used for dose reduction: Automated exposure control, adjustment of the mA and/or kV according to patient size, use of iterative reconstruction technique. DLP: 54 mGy-cm COMPARISON: Comparison is made with the prior examination dated 03/28/2024. FINDINGS: Lung nodules: Again seen is a 2 mm nodule in the right upper lobe (series 4, image 28). No additional pulmonary nodules are identified. Emphysema: mild Coronary Calcification: none Aortic Arch Calcification: mild Potentially Significant Incidentals : none Additional Chest Findings: Again seen is soft tissue density in the anterior mediastinum which likely represents residual thymus. There is no pleural or pericardial effusion. No mediastinal or axillary lymphadenopathy is identified. Visualized upper abdomen: The visualized portions of the liver, spleen, and adrenals have an unremarkable unenhanced appearance. CT/CT lung screening IMPRESSION: No suspicious pulmonary nodules are identified. LUNG-RADS ASSESSMENT: Lung-RADS 2: Benign MANAGEMENT: Continue annual screening with LDCT in 12 months Category S: N/A Electronically signed by: Angel Rodriguez MD 04/13/2025 07:49 AM EDT Dictated By: Angel Rodriguez MD Signed By: <Electronically signed by Angel Rodriguez MD in OV> 04/13/25 0749 DD/ TD/TT: 04/13/2530 [employer] Kiss Maker: [address] [address] [address] Scan Report Signed Patient: Nadia Moreira MR#: [id number] 00 : 1970 Acct:[id number] Age/Sex: 54 / F ADM Date: 04/13/25 Loc: HO.CT Attending Dr: Skye Bañuelos PA-C Ordering Physician: Skye Bañuelos PA-C Date of Service: 04/13/25 Procedure(s): CT amos g screening Accession Number(s): [id number] cc: Daniel Bragg MD; Skye Bañuelos PA-C Report Number: [id number]: Total DLP = 54.00 mGy-cm Reason for Exam: Z87 .891 - Personal history of nicotine dependence EXAMINATION: CT LUNG SCREENING HISTORY: Z87.891 - P ersonal history of nicotine dependence TECHNIQUE: Low dose axial images were obtained from the sternal notch to upper abdomen wit hout IV contrast per standard departmental protocol. Sagittal a nd coronal reformatted images were also obtained and reviewed. One or more of the following techniques was used for dose reduction: Auto mated exposure control, adjustment of the mA and/or kV according to shaylee ent size, use of iterative reconstruction technique. DLP: 54 mGy-cm COMPARISON: Comparis on is made with the prior examination dated 03/28/2024. FINDINGS: Lung nodules: Again seen is a 2 mm nodule in the right upper lobe (series 4, image 28) . No additional pulmonary nodules are identified. Emphysema: mild Coronary Calcificati on: none Aortic Arch Calcific ation: mild Potentially Signific ant Incidentals : none Additional Chest Fin dings: Again seen is soft tissue density in the anterior mediastinum which likely represents residual thymus. There is no pleural or perica rdial effusion. No mediastinal or axillary lymphadenopathy is identified. Visualized upper abd omen: The visualized portions of the liver, spleen, and adrenals have an unremarkable unenhanced appearance. C T/CT lung screening IMPRESSION: No suspicious pulmon saad nodules are identified. LUNG-RADS ASSESSMENT: Lung-RADS 2: Benign MANAGEMENT: Continue annual scre ening with LDCT in 12 months Category S: N/A Electronically gaby d by: Angel Rodriguez MD 04/13/2025 07:49 AM EDT RP Dictated By: Angel Rodriguez MD Signed By: <Electron ically signed by Angel Rodriguez MD in OV> 04/13/25 0749 DD/ TD/TT: 04/13/25729 Sea Foam Kiss Maker: Raudel Tan Reviewed date:04/25/2025 12:24:24 PM Interpretation: Performing Lab:[facility], [address] [place] [phone] Notes/Report: Raudel Tan See Note Specimen held untested for 24 hours; Call to request Chemistry testing. Reason For Referral No Information Medications Medication [...] Dupixent 200 MG/1.14ML as directed Subcutaneous Not-Taking Rosuvastatin Calcium 40 MG TAKE 1 TABLET BY MOUTH DAILY for 90 Active Dupixent 200 MG/1.14ML as directed Subcutaneous Not-Taking Immunizations Vaccine Route Administration Date Status Comme nts TDaP IM Intramuscular 09/28/2012 Administered Flu Vaccine Unknown 05/13/2013 Administered At work. Fluarix Quadrivalent IM Intramuscular 04/27/2014 Administe red PPSV23 (Pnemovax) IM Intramuscular 05/08/2014 Administered Flu Vaccine Unknown 05/16/2015 Administered At work [employer] Prevnar 13 IM Intramuscular 11/12/2015 Administered Fluarix Quadrivalent Unknown 05/18/2017 Administered At work [employer] Flu Vaccine Unknown 05/14/2018 Administered had at work Fluarix Quadrivalent IM Intramuscular 05/13/2019 Administe red Pt was given the vaccine at work. PPSV23 (Pnemovax) IM Intramuscular 06/10/2019 Administered Fluarix Quadrivalent Unknown 05/18/2020 Administered Liang d it at work [employer] Fluarix Quadrivalent IM Intramuscular 04/25/2021 Administe red [...] W/U Status Risk Notes Problem Pure hypercholesterolemia (647403024) Pure hypercholesterolemia (E78.0) Active confirmed Problem 945433680 Irritable bowel syndrome with diarrhea (K58.0) Active confirmed Problem 54976142 Leukemoid reacti on (D72.823) Active confirmed Problem 9276414 Panlobular emphy sema (J43.1) Active confirmed Problem 297060440 Body mass index (BMI) 34.0-34.9, adult (Z68.34) Active confirmed Problem 8889739 Arthritis (M19.90) Active confirmed Problem 077126966 Abnormal mammogr am of left breast (R92.8) Active confirmed Problem 957307003 Drug allergy (Z88.9) Active confirmed Problem 959780946 Pure hypercholesterolemia, unspecified (E78.00) Active confirmed Problem 406537061 Pure hypercholesterolemia (E78.00) Active confirmed Problem 49174619 Seasonal allergi c rhinitis due to pollen (J30.1) Active confirmed Problem 458458777 Body mass index (BMI) of 33.0-33.9 in adult (Z68.33) Active confirmed Problem Solitary pulmonary nodule (859441847) Incidental lung nodule (R91.1) Active confirmed Problem 79944210 Hyperplastic deng yp of ascending colon (K63.5) Active confirmed Problem 508211939 Elevated serum cholesterol (E78.9) Active confirmed Vital [...] Daniel Bragg MD [address] [place] [id number] 06/21/2024 Daniel Bragg Pure hypercholestero lemia E78.00 Daniel Bragg MD [address] [place] [id number] 10/18/2024 Daniel Bragg Blood tests for rout ine general physical examination Z00.00 and Pure hypercholesterolemia E78.00 Daniel Bragg MD [address] [place] [id number] 04/25/2025 Daniel Bragg Pure hypercholestero lemia E78.00 Daniel Bragg MD [address] [place] [id number] 10/25/2024 Daniel Bragg Annual physical exam Z00.00 ; Seasonal allergic rhinitis due to pollen J30.1 ; Pure hypercholesterolemia E78.00 ; Panlobular emphysema J43.1 and Depression screening Z13.31 Daniel Bragg MD [address] [place] [id number] 10/31/2024 Daniel Bragg MD [address] [place] [id number] 04/20/2025 Daniel Bragg Pure hypercholestero lemia E78.00 Assessments Encounter Date Diagnosis (ICD Code) Assessment Notes Treatment Notes Treatment Clinical Notes Section Notes 06/21/2024 Pure hypercholesterolemia (ICD-10 - E78.00) 10/18/[address] ine general physical examination (ICD-10 - Z00.00) 04/25/2025 Pure hypercholesterolemia (ICD-10 - E78.00) 10/25/2024 Annual physical exam (ICD-10 - Z00.00) labs reviewed and discussed with patient, is going to work on diet and considring weight loss meds. 10/25/2024 Seasonal allergic rhinitis due to pollen (ICD-10 - J30.1) is going to see dr burk 04/20/2025 Pure hypercholesterolemia (ICD-10 - E78.00) 10/18/2024 Pure hypercholesterolemia (ICD-10 - E78.00) 10/25/2024 Pure hypercholesterolemia (ICD-10 - E78.00) stable, will contiue current regiment 10/25/2024 Panlobular emphysema (ICD-10 - J43.1) stable, will contiue current regiment 10/25/2024 Depression screening (ICD-10 - Z13.31) negative screen Plan Of Treatment Pending Test Test Name Order Date Electrocardiogram (EKG) 08/27/2017 Electrocardiogram (EKG) 09/09/2019 MAMMOGRAM DIGITAL UNILATERAL MAXX LT 10/02 Liver Panel 04/25/2025 Lipid Panel with Reflex 04/25/2025 Next Appt Details Provider Name:Daniel Coates ier, 05/04/2025 07:45:00 AM, [address] [place] [address], [address], [place], [place], [phone], Provider Name:Daniel Coates ier, 10/20/2025 07:30:00 AM, [address] [place] [address], [address], [place], [place], [phone], Provider Name:Daniel Coates ier, 10/27/2025 08:30:00 AM, [address] [place] [address], [address], [place], [place], [phone], Insurance Providers Payer Name Payer Address Payer Phone Subscriber Number Group Number Insured Name Patient Relationship to Insured Coverage Start Date Coverage End Date [employer] [address] [place], [place] [phone] [id number] Samira Moreira Self - patient is the insured 4 Medical (General) History Medical History History ICD Code colonoscopy 07/26/2013 , Col onoscopy and Endoscopy done 07/26/19 repeat 2-3 yearsColonoscopy 06/16/[address] Mclaughlin, RN RELIEF CHARGE hYSTERECTOMY, 2006
== END 2025-04-25 11:20 | disposition home or self-care (01) ==
LOC: HO.LNP 11:19
PROVIDERS: Visit Provider Internal Medicine
DX: E78.00 Pure hypercholesterolemia, unspecified (principal)
CPT/HCPCS: 80061; 80076